=== PATIENT | male | born 1990 | race Caucasian/White ===

== ENCOUNTER 2016-07-10 19:40 | Emergency (ER) | payer OTHER ==
--- NOTE | 2016-07-10 20:47 | ED ---
Anxiety HPI - General Chief Complaint: Anxiety Stated Complaint: Anxiety Time Seen by Provider: 07/10/16 20:41 Source: patient, RN notes reviewed Mode of arrival: ambulatory Limitations: no limitations - History of Present Illness Initial Comments: 25-year-old male presents emergency Department with chief complaint anxiety. Patient states that he was supposed to have an appointment with his psychiatrist tomorrow morning for his Ativan but they canceled and moved his appointment to Friday. Patient states that he is out because his prescription was over one month ago. Patient denies any suicidal or homicidal thoughts. Patient denies any illicit drug use or alcohol use. Patient states his is very anxious states that he does not want to withdrawal from his medication. Patient offers no other complaints. Patient denies chest pain, shortness breath , fever, chills, nausea vomiting diarrhea or constipation. - Related Data Home Medications: Home Medications Medication Instructions Recorded Confirmed Ranitidine HCl [Zantac] 75 mg PO HS 11/10/15 06/03/16 Citalopram Hydrobromide [CeleXA] 10 mg PO DAILY 06/03/16 06/03/16 busPIRone HCl [Buspar] 5 mg PO BID 06/03/16 06/03/16 Previous Rx's Medication Instructions Recorded LORazepam [Ativan] 0.5 mg PO BID #10 tab 05/17/16 LORazepam [Ativan] 0.5 mg PO BID #7 tab 07/10/16 Allergies/Adverse Reactions: Allergies Allergy/AdvReac Type Severity Reaction Status Date / Time Penicillins Allergy Unknown Verified 07/10/16 19:52 Review of Systems ROS Statement: Those systems with pertinent positive or pertinent negative responses have been documented in the HPI. ROS Other: All systems not noted in ROS Statement are negative. Past Medical History Past Medical History: Asthma History of Any Multi-Drug Resistant Organisms: None Reported Past Surgical History: No Surgical Hx Reported Past Psychological History: ADD/ADHD, Anxiety Smoking Status: Current every day smoker Past Alcohol Use History: None Reported Past Drug Use History: None Reported General Exam Limitations: no limitations General appearance: alert, in no apparent distress Head exam: Present: atraumatic, normocephalic, normal inspection Eye exam: Present: normal appearance, PERRL, EOMI. Absent: scleral icterus, conjunctival injection, periorbital swelling ENT exam: Present: normal exam, normal oropharynx, mucous membranes moist, TM's normal bilaterally, normal external ear exam Neck exam: Present: normal inspection, full ROM. Absent: tenderness, meningismus, lymphadenopathy Respiratory exam: Present: normal lung sounds bilaterally. Absent: respiratory distress, wheezes, rales, rhonchi, stridor Cardiovascular Exam: Present: regular rate, normal rhythm, normal heart sounds. Absent: systolic murmur, diastolic murmur, rubs, gallop, clicks Course Vital Signs 07/10/16 19:50 Temperature 97.2 F L Pulse Rate 100 Respiratory 18 Rate Blood Pressure 147/81 O2 Sat by Pulse 98 Oximetry Medical Decision Making - Medical Decision Making 25-year-old male presented for anxiety. Patient was given a few tablets of of Ativan at this time so does not withdrawal. Patient will follow-up with psychiatrist on Friday. Disposition Clinical Impression: Acute anxiety Disposition: HOME SELF-CARE Condition: Stable Instructions: Generalized Anxiety Disorder (ED) Additional Instructions: Please return to the Emergency Department if symptoms worsen or any other concerns. Prescriptions: LORazepam [Ativan] 0.5 mg PO BID #7 tab Time of Disposition: 20:47
[2016-07-10 21:03] VITALS: BP 120/70; PULSE 84; RESP 16; TEMP 97.8
== END 2016-07-10 21:02 | disposition home or self-care (01) ==
LOC: EC 19:40
DX: F41.9 Anxiety disorder, unspecified (principal); Z79.899 Other long term (current) drug therapy; Z88.0 Allergy status to penicillin; F17.200 Nicotine dependence, unspecified, uncomplicated
CPT/HCPCS: 99283

== ENCOUNTER 2016-08-19 01:08 | Emergency (ER) | payer OTHER ==
[2016-08-19 01:26] VITALS: TEMP 98.2
[2016-08-19] MEDS ORDERED: LORazepam 1 MG TAB PO STA (04:42)
--- NOTE | 2016-08-19 04:45 | ED ---
Anxiety HPI - General Chief Complaint: Anxiety Stated Complaint: anxiety Time Seen by Provider: 08/19/16 04:34 Source: patient, RN notes reviewed, old records reviewed Mode of arrival: ambulatory - History of Present Illness Initial Comments: Patient is a 26 year old male with chief complaint of anxiety and running out of his clonazepam. Patient reports he takes .25 mg of ativan each night to help with sleep. He reports he uusally will cut a 1mg in fourths. He states that he has an appointment with Dr. Salas, his psychiatrist in approximately 2 weeks. He states that he is concerned of withdrawls. He denies any suicidal or homicidal thoughts. He states that he has been taking clonazepam for many years and ran out of it last night. - Related Data Home Medications: Home Medications Medication Instructions Recorded Confirmed Citalopram Hydrobromide [CeleXA] 10 mg PO DAILY 06/03/16 08/19/16 busPIRone HCl [Buspar] 5 mg PO BID 06/03/16 07/10/16 Previous Rx's Medication Instructions Recorded LORazepam [Ativan] 1 mg PO DAILY #4 tab 07/10/16 LORazepam [Ativan] 0.5 mg PO DAILY #10 tab 08/19/16 Allergies/Adverse Reactions: Allergies Allergy/AdvReac Type Severity Reaction Status Date / Time Penicillins Allergy Unknown Verified 07/10/16 20:54 Review of Systems ROS Statement: Those systems with pertinent positive or pertinent negative responses have been documented in the HPI. ROS Other: All systems not noted in ROS Statement are negative. Past Medical History Past Medical History: Asthma History of Any Multi-Drug Resistant Organisms: None Reported Past Surgical History: No Surgical Hx Reported Past Psychological History: ADD/ADHD, Anxiety Smoking Status: Current every day smoker Past Alcohol Use History: None Reported Past Drug Use History: None Reported General Exam Limitations: no limitations General appearance: alert, in no apparent distress Head exam: Present: atraumatic, normocephalic, normal inspection Eye exam: Present: normal appearance, PERRL, EOMI. Absent: scleral icterus, conjunctival injection, periorbital swelling ENT exam: Present: normal exam, mucous membranes moist Neck exam: Present: normal inspection. Absent: tenderness, meningismus, lymphadenopathy Respiratory exam: Present: normal lung sounds bilaterally. Absent: respiratory distress, wheezes, rales, rhonchi, stridor Cardiovascular Exam: Present: regular rate GI/Abdominal exam: Present: soft, normal bowel sounds. Absent: distended, tenderness, guarding, rebound, rigid Extremities exam: Present: normal inspection, full ROM, normal capillary refill. Absent: tenderness, pedal edema, joint swelling, calf tenderness Back exam: Present: normal inspection Neurological exam: Present: alert, oriented X3, CN II-XII intact Psychiatric exam: Present: normal affect, normal mood, anxious (patient reports that he has chronic anxiety, no acute anxiety attacks at this time. PAtient is resting comfortably in bed. ) Skin exam: Present: warm, dry, intact, normal color. Absent: rash Course Vital Signs 08/19/16 08/19/16 01:24 04:54 Temperature 98.2 F Pulse Rate 89 77 Respiratory 20 16 Rate Blood Pressure 130/90 132/78 O2 Sat by Pulse 98 96 Oximetry Medical Decision Making - Medical Decision Making Patient is a 26 year old male with chief complaint of anxiety and ran out of ativan. He was given 1mg ativan in EC, and he split it at that time. Patient given a few ativan until he can follow up with psychiatrist. Patient will follow up with Dr. Salas in 2 weeks. PAtient understands treatment plan and will comply. He has no suicidal or homicidal thoughts. and is resting comfortably at this time. Disposition Clinical Impression: Anxiety Disposition: HOME SELF-CARE Condition: Good Instructions: Generalized Anxiety Disorder (ED) Additional Instructions: Patient denies to follow-up with primary care provider. Also follow-up with psychiatrist. Return to emergency Department if any alarming signs or symptoms occur. Prescriptions: LORazepam [Ativan] 0.5 mg PO DAILY #10 tab Referrals: Aliya Matos MD [Primary Care Provider] - 1-2 days Time of Disposition: 04:44
[2016-08-19 04:54] VITALS: BP 132/78; PULSE 77; RESP 16
== END 2016-08-19 04:54 | disposition home or self-care (01) ==
LOC: EC 01:08
DX: F41.9 Anxiety disorder, unspecified (principal); F17.200 Nicotine dependence, unspecified, uncomplicated; Z79.899 Other long term (current) drug therapy; Z88.0 Allergy status to penicillin
CPT/HCPCS: 99283

== ENCOUNTER 2016-09-26 21:21 | Emergency (ER) | payer OTHER ==
[2016-09-26 21:35] VITALS: BP 120/72; PULSE 88; RESP 18; TEMP 98.4
[2016-09-26] MEDS ORDERED: LORazepam 1 MG TAB PO STA (21:55)
--- NOTE | 2016-09-26 21:55 | ED ---
General Adult HPI - General Chief complaint: Anxiety Stated complaint: anxiety Time Seen by Provider: 09/26/16 21:40 Source: patient, RN notes reviewed, old records reviewed Mode of arrival: ambulatory Limitations: no limitations - History of Present Illness Initial comments: This is a 26-year-old female here for evaluation of anxiety. Patient states having severe anxiety attack, anxiety medications. He denies homicidal or suicidal thoughts no drugs or alcohol. Patient has no chest pain or shortness of breath no bowel pain. Denies chance of - Related Data Home Medications Medication Instructions Recorded Confirmed busPIRone HCl [Buspar] 5 mg PO QAM 06/03/16 09/26/16 Citalopram Hydrobromide [CeleXA] 20 mg PO DAILY 09/04/16 09/26/16 Ibuprofen [Motrin] 800 mg PO DAILY PRN 09/04/16 09/26/16 Ranitidine HCl [Zantac] 150 mg PO BID 09/04/16 09/26/16 ALPRAZolam [Xanax] 1 mg PO QAM 09/26/16 09/26/16 Dextroamphetamine/Amphetamine 20 mg PO BID 09/26/16 09/26/16 [Adderall] Divalproex ER [Depakote ER] 250 mg PO BID 09/26/16 09/26/16 Previous Rx's Medication Instructions Recorded LORazepam [Ativan] 1 mg PO BID PRN #30 tab 09/26/16 Allergies Allergy/AdvReac Type Severity Reaction Status Date / Time Penicillins Allergy Unknown Verified 09/26/16 22:08 Review of Systems ROS Statement: Those systems with pertinent positive or pertinent negative responses have been documented in the HPI. ROS Other: All systems not noted in ROS Statement are negative. Past Medical History Past Medical History: Asthma, GERD/Reflux Additional Past Medical History / Comment(s): HX OF ASTHMA (NO PROBLEMS NOW). History of Any Multi-Drug Resistant Organisms: None Reported Past Surgical History: No Surgical Hx Reported Additional Past Anesthesia/Blood Transfusion Reaction / Comment(s): NEVER RECEIVED ANESTHESIA. Past Psychological History: Anxiety, Depression Smoking Status: Heavy tobacco smoker Past Alcohol Use History: None Reported Additional Past Alcohol Use History / Comment(s): SMOKES 2 PPD. SMOKING SINCE 16 YRS OLD. STATES NO ALCOHOL FOR 5 YEARS. Past Drug Use History: None Reported - Past Family History Mother Family Medical History: No Reported History General Exam Limitations: no limitations General appearance: alert, in no apparent distress Head exam: Present: atraumatic, normocephalic, normal inspection Eye exam: Present: normal appearance, PERRL, EOMI. Absent: scleral icterus, conjunctival injection, periorbital swelling ENT exam: Present: normal exam, mucous membranes moist Neck exam: Present: normal inspection. Absent: tenderness, meningismus, lymphadenopathy Respiratory exam: Present: normal lung sounds bilaterally. Absent: respiratory distress, wheezes, rales, rhonchi, stridor Cardiovascular Exam: Present: regular rate, normal rhythm, normal heart sounds. Absent: systolic murmur, diastolic murmur, rubs, gallop, clicks GI/Abdominal exam: Present: soft, normal bowel sounds. Absent: distended, tenderness, guarding, rebound, rigid Extremities exam: Present: normal inspection, full ROM, normal capillary refill. Absent: tenderness, pedal edema, joint swelling, calf tenderness Back exam: Present: normal inspection Neurological exam: Present: alert, oriented X3, CN II-XII intact Psychiatric exam: Present: normal affect, normal mood Skin exam: Present: warm, dry, intact, normal color. Absent: rash Course Vital Signs 09/26/16 21:33 Temperature 98.4 F Pulse Rate 88 Respiratory 18 Rate Blood Pressure 120/72 O2 Sat by Pulse 98 Oximetry Medical Decision Making - Medical Decision Making 26 now ER for anxiety attack, anxiety is resolved with medication. Patient will be discharged home Disposition Clinical Impression: Panic attack, Acute anxiety Disposition: HOME SELF-CARE Instructions: Generalized Anxiety Disorder (ED) Prescriptions: LORazepam [Ativan] 1 mg PO BID PRN #30 tab PRN Reason: Anxiety Referrals: Josesito Rivas MD [Primary Care Provider] - 1-2 days
== END 2016-09-26 22:10 | disposition home or self-care (01) ==
LOC: EC 21:21
DX: F41.0 Panic disorder [episodic paroxysmal anxiety] (principal); K21.9 Gastro-esophageal reflux disease without esophagitis; F32.9 Major depressive disorder, single episode, unspecified; F17.200 Nicotine dependence, unspecified, uncomplicated; Z79.899 Other long term (current) drug therapy
CPT/HCPCS: 99283

== ENCOUNTER 2016-10-10 16:07 | Emergency (ER) | payer OTHER ==
[2016-10-10 16:27] VITALS: BP 127/72; PULSE 83; RESP 18; TEMP 97.9
[2016-10-10] MEDS ORDERED: LORazepam 0.5 MG TAB PO STA (16:49)
--- NOTE | 2016-10-10 16:52 | ED ---
Anxiety HPI - General Chief Complaint: Anxiety Stated Complaint: anxiety Time Seen by Provider: 10/10/16 16:43 Source: patient, RN notes reviewed Mode of arrival: ambulatory Limitations: no limitations - History of Present Illness Initial Comments: 26-year-old male presents emergency from for anxiety anger issues. Patient is here with mother. Patient states that he does not have any of his living because his is a pill popper and use all of his medications. Patient is requesting something here because of his anxiety. Patient denies any suicidal or homicidal thoughts. Patient is under the care of his mother at this time. Patient denies any alcohol use. Patient offers no complaints. - Related Data Home Medications: Home Medications Medication Instructions Recorded Confirmed busPIRone HCl [Buspar] 5 mg PO QAM 06/03/16 10/10/16 Citalopram Hydrobromide [CeleXA] 20 mg PO DAILY 09/04/16 10/10/16 Ibuprofen [Motrin] 800 mg PO DAILY PRN 09/04/16 10/10/16 Ranitidine HCl [Zantac] 150 mg PO BID 09/04/16 10/10/16 ALPRAZolam [Xanax] 1 mg PO QAM 09/26/16 10/10/16 Dextroamphetamine/Amphetamine 20 mg PO BID 09/26/16 10/10/16 [Adderall] Divalproex ER [Depakote ER] 250 mg PO BID 09/26/16 10/10/16 Previous Rx's Medication Instructions Recorded LORazepam [Ativan] 1 mg PO BID PRN #30 tab 09/26/16 Allergies/Adverse Reactions: Allergies Allergy/AdvReac Type Severity Reaction Status Date / Time erythromycin base Allergy Unknown Verified 10/10/16 16:37 [From Pediazole] Childhood sulfisoxazole Allergy Unknown Verified 10/10/16 16:37 [From Pediazole] Childhood Review of Systems ROS Statement: Those systems with pertinent positive or pertinent negative responses have been documented in the HPI. ROS Other: All systems not noted in ROS Statement are negative. Past Medical History Past Medical History: Asthma, GERD/Reflux Additional Past Medical History / Comment(s): HX OF ASTHMA (NO PROBLEMS NOW). History of Any Multi-Drug Resistant Organisms: None Reported Past Surgical History: Adenoidectomy, Hernia Repair, Tonsillectomy Additional Past Surgical History / Comment(s): web foot repair Additional Past Anesthesia/Blood Transfusion Reaction / Comment(s): NEVER RECEIVED ANESTHESIA. Past Psychological History: Anxiety, Depression Smoking Status: Current every day smoker Past Alcohol Use History: None Reported Additional Past Alcohol Use History / Comment(s): SMOKES 2 PPD. SMOKING SINCE 16 YRS OLD. STATES NO ALCOHOL FOR 5 YEARS. Past Drug Use History: None Reported - Past Family History Mother Family Medical History: No Reported History General Exam Limitations: no limitations General appearance: alert, in no apparent distress Respiratory exam: Present: normal lung sounds bilaterally. Absent: respiratory distress, wheezes, rales, rhonchi, stridor Cardiovascular Exam: Present: regular rate, normal rhythm, normal heart sounds. Absent: systolic murmur, diastolic murmur, rubs, gallop, clicks Neurological exam: Present: alert, oriented X3, CN II-XII intact Skin exam: Present: warm, dry, intact, normal color. Absent: rash Course Vital Signs 10/10/16 16:23 Temperature 97.9 F Pulse Rate 83 Respiratory 18 Rate Blood Pressure 127/72 O2 Sat by Pulse 96 Oximetry Medical Decision Making - Medical Decision Making 18-year-old male presented for anxiety. Patient be given medication here in the emergency department no prescription. Patient be discharged follow-up with psychiatry. Disposition Clinical Impression: Panic disorder Disposition: HOME SELF-CARE Condition: Stable Instructions: Generalized Anxiety Disorder (ED) Additional Instructions: Please return to the Emergency Department if symptoms worsen or any other concerns. Time of Disposition: 16:52
== END 2016-10-10 17:06 | disposition home or self-care (01) ==
LOC: EC 16:07
DX: F41.0 Panic disorder [episodic paroxysmal anxiety] (principal); K21.9 Gastro-esophageal reflux disease without esophagitis; F32.9 Major depressive disorder, single episode, unspecified; F17.200 Nicotine dependence, unspecified, uncomplicated; Z79.899 Other long term (current) drug therapy; Z88.1 Allergy status to other antibiotic agents
CPT/HCPCS: 99283

== ENCOUNTER 2016-11-26 11:55 | Emergency (ER) | payer OTHER ==
[2016-11-26 12:07] VITALS: BP 113/57; PULSE 76; RESP 18; TEMP 97.4
[2016-11-26] MEDS ORDERED: ACETAMINOPHEN TAB 500 MG TAB PO STA (12:22)
--- NOTE | 2016-11-26 13:16 | ED ---
Back Pain [facility] - General Chief Complaint: Back Pain/Injury Stated Complaint: Back Pain Time Seen by Provider: 11/26/16 12:10 Source: patient Limitations: no limitations - History of Present Illness Initial Comments: Patient is a 26-year-old male presenting to the emergency department with chief complaint of lumbar back pain. Patient states symptoms started yesterday at work. 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 Patient states he is usually able to crack his back and the pain disappears but this time the pain has been persistent since yesterday. Patient denies recent illness, fevers, chills, nausea, vomiting, shortness of breath, chest pain, abdominal pain, numbness or tingling, fecal or urinary incontinence, or saddle anesthesia. Patient denies recent IV drug abuse, no recent steroids, no history of cancer. MD Complaint: back pain (Lumbar) Onset/Timin -: days(s) Similar Symptoms Previously: Yes Place: work Radiation: none Severity: moderate Severity scale (1-10): 5 Quality: other (Squeezing) Consistency: intermittent Improves With: immobilization Worsens With: movement Context: unknown Associated Symptoms: denies other symptoms Treatments Prior to Arrival: NSAIDS (Last night patient took some Motrin.) - Related Data Home Medications Medication Instructions Recorded Confirmed busPIRone HCl [Buspar] 5 mg PO QAM 06/03/16 11/26/16 Ibuprofen [Motrin] 800 mg PO DAILY PRN 09/04/16 11/26/16 RX: Citalopram Hydrobromide 20 mg PO DAILY 09/04/16 11/26/16 [CeleXA] Ranitidine HCl [Zantac] 150 mg PO BID 09/04/16 11/26/16 ALPRAZolam [Xanax] 1 mg PO QAM 09/26/16 11/26/16 Dextroamphetamine/Amphetamine 20 mg PO BID 09/26/16 11/26/16 [Adderall] Divalproex ER [Depakote ER] 250 mg PO BID 09/26/16 11/26/16 Allergies Allergy/AdvReac Type Severity Reaction Status Date / Time erythromycin base Allergy Unknown Verified 11/26/16 12:07 [From Pediazole] Childhood sulfisoxazole Allergy Unknown Verified 11/26/16 12:07 [From Pediazole] Childhood Review of Systems ROS Statement: Those systems with pertinent positive or pertinent negative responses have been documented in the HPI. ROS Other: All systems not noted in ROS Statement are negative. Past Medical History Past Medical History: Asthma, GERD/Reflux Additional Past Medical History / Comment(s): HX OF ASTHMA (NO PROBLEMS NOW). History of Any Multi-Drug Resistant Organisms: None Reported Past Surgical History: Adenoidectomy, Hernia Repair, Tonsillectomy Additional Past Surgical History / Comment(s): web foot repair Additional Past Anesthesia/Blood Transfusion Reaction / Comment(s): NEVER RECEIVED ANESTHESIA. Past Psychological History: Anxiety, Depression Smoking Status: Current every day smoker Past Alcohol Use History: None Reported Past Drug Use History: None Reported - Past Family History Mother Family Medical History: No Reported History General Exam - General Exam Comments Initial Comments: GENERAL: Pt awake and alert, well-appearing, well-nourished, and in no acute distress. HEAD: Atraumatic, normocephalic. EYES: Pupils equal, round, and reactive to light, extraocular movements intact, sclera anicteric, conjunctiva are normal. ENT: Oropharynx clear without exudates. Moist mucous membranes. Tongue smooth, pink, no lesions, protrudes in midline. NECK:Normal range of motion, supple without lymphadenopathy or JVD. No cervical tenderness. LUNGS: Breath sounds clear to auscultation bilaterally. No wheezes, rales, or rhonchi. HEART: Heart S1, S2, no S3 or S4. Regular rate and rhythm. No murmurs, rubs or gallops. ABDOMEN: Soft, nontender, nondistended, normoactive bowel sounds. No guarding, no rebound. No masses or organomegaly appreciated. BACK: Full range of motion of spine flexion and extension. Straight leg raise negative bilaterally. 5 out of 5 strength hips/knees/ankles in flexion and extension. Normal gait. Vertebral tenderness to lumbar region. No paraspinal tenderness. Cecy test positive for lumbosacral pain. No foot drop. EXTREMITIES: 2+ peripheral pulses. No edema. No calf tenderness. NEUROLOGICAL: Pt oriented x 3. No focal deficits. Strength and sensation grossly intact. PSYCH: Normal mood, normal affect. SKIN: Warm, dry, intact. Normal turgor. No rashes or lesions. Limitations: no limitations General appearance: alert, in no apparent distress Course Vital Signs 06/20/17 06/20/17 12:05 13:18 Temperature 97.4 F L 97.4 F L Pulse Rate 76 76 Respiratory 18 18 Rate Blood Pressure 113/57 113/57 O2 Sat by Pulse 97 97 Oximetry Medical Decision Making - Medical Decision Making Lumbar sprain. Patient instructed to continue Tylenol or Motrin for pain. Avoid bed rest. Follow-up with primary care physician as directed. Patient agrees to treatment plan. Discharge instructions and return parameters reviewed. - Radiology Data Radiology results: report reviewed Lumbar spine x-ray: Normal lumbosacral spine. Disposition Clinical Impression: Strain of lumbar region Disposition: HOME SELF-CARE Condition: Good Instructions: Acute Low Back Pain (ED) Additional Instructions: Continue Tylenol every 4-6 hours for pain or Motrin every 4-6 hours for pain. Avoid bed rest. Follow-up with primary care physician as directed. Please return to the emergency department if symptoms do not improve or get worse. Referrals: Josesito Rivas MD [Primary Care Provider] - 1-2 days Time of Disposition: 13:16
--- NOTE | 2016-11-26 15:29 | XR ---
EXAMINATION TYPE: XR lumbosacral spine min 4V DATE OF EXAM ORDERED: 11/26/2016 HISTORY: Pain. COMPARISON: None. FINDINGS: Vertebral body height and alignment are maintained. There is no spondylolysis or spondylol isthesis. This spaces are maintained. The facets are normal on the right. There are poorly visualized on the left. The pedicles are intact. IMPRESSION: NORMAL LUMBOSACRAL SPINE.
== END 2016-11-26 13:21 | disposition home or self-care (01) ==
LOC: EC 11:55
DX: S39.012A Strain of muscle, fascia and tendon of lower back, initial encounter (principal); K21.9 Gastro-esophageal reflux disease without esophagitis; F32.9 Major depressive disorder, single episode, unspecified; F41.9 Anxiety disorder, unspecified; F17.200 Nicotine dependence, unspecified, uncomplicated; Z79.899 Other long term (current) drug therapy; Z88.1 Allergy status to other antibiotic agents; Z88.2 Allergy status to sulfonamides; X58.XXXA Exposure to other specified factors, initial encounter; Y92.89 Other specified places as the place of occurrence of the external cause
CPT/HCPCS: 72110; 99283

== ENCOUNTER 2016-12-14 23:46 | Emergency (ER) | payer OTHER ==
[2016-12-14 23:54] VITALS: BP 131/90; PULSE 102; RESP 18; TEMP 97.8
[2016-12-15] MEDS ORDERED: PENICILLIN V POTASSIUM 250 MG TAB PO STA (00:50)
[2016-12-15] MEDS ORDERED: Acetaminophen-Codeine 300-30mg TAB PO STA (00:50)
--- NOTE | 2016-12-15 00:50 | ED ---
ENT HPI - General Chief complaint: Dental/Oral Stated complaint: Dental Pain Time Seen by Provider: 12/15/16 00:43 Source: patient, RN notes reviewed Mode of arrival: ambulatory Limitations: no limitations - History of Present Illness Initial comments: 26-year-old male presents emergency Department chief complaint right lower dental pain. Patient states started last few days. Patient is appointment with dentist on Friday. Patient denies any fevers or chills. Patient states she's had mild facial swelling. Patient states he has poor dentition the lower area. Patient states she's been taking ibuprofen with some relief. Patient offers no other complaints. - Related Data Home Medications Medication Instructions Recorded Confirmed busPIRone HCl [Buspar] 5 mg PO QAM 06/03/16 11/26/16 Citalopram Hydrobromide [CeleXA] 20 mg PO DAILY 09/04/16 11/26/16 Ibuprofen [Motrin] 800 mg PO DAILY PRN 09/04/16 11/26/16 Ranitidine HCl [Zantac] 150 mg PO BID 09/04/16 11/26/16 ALPRAZolam [Xanax] 1 mg PO QAM 09/26/16 11/26/16 Dextroamphetamine/Amphetamine 20 mg PO BID 09/26/16 11/26/16 [Adderall] Divalproex ER [Depakote ER] 250 mg PO BID 09/26/16 11/26/16 Previous Rx's Medication Instructions Recorded Acetaminophen-Codeine 300-30mg 1 tab PO Q4H PRN #10 tablet 12/15/16 [Tylenol #3] Penicillin V Potassium [Pen Vee K] 500 mg PO QID #40 tab 12/15/16 Allergies Allergy/AdvReac Type Severity Reaction Status Date / Time erythromycin base Allergy Unknown Verified 12/14/16 23:54 [From Pediazole] Childhood sulfisoxazole Allergy Unknown Verified 12/14/16 23:54 [From Pediazole] Childhood Review of Systems ROS Statement: Those systems with pertinent positive or pertinent negative responses have been documented in the HPI. ROS Other: All systems not noted in ROS Statement are negative. Past Medical History Past Medical History: Asthma, GERD/Reflux Additional Past Medical History / Comment(s): HX OF ASTHMA (NO PROBLEMS NOW). History of Any Multi-Drug Resistant Organisms: None Reported Past Surgical History: Adenoidectomy, Hernia Repair, Tonsillectomy Additional Past Surgical History / Comment(s): web foot repair Additional Past Anesthesia/Blood Transfusion Reaction / Comment(s): NEVER RECEIVED ANESTHESIA. Past Psychological History: Anxiety, Depression Smoking Status: Current every day smoker Past Alcohol Use History: None Reported Past Drug Use History: None Reported - Past Family History Mother Family Medical History: No Reported History General Exam Limitations: no limitations General appearance: alert, in no apparent distress Head exam: Present: atraumatic, normocephalic, normal inspection Eye exam: Present: normal appearance, PERRL, EOMI. Absent: scleral icterus, conjunctival injection, periorbital swelling ENT exam: Present: mucous membranes moist, TM's normal bilaterally. Absent: normal exam, normal oropharynx (Poor dentition, edentulous, right lower there are multiple missing teeth with no open abscess is mild erythema and swelling of the gumline) Neck exam: Present: normal inspection, full ROM. Absent: tenderness, meningismus, lymphadenopathy Respiratory exam: Present: normal lung sounds bilaterally. Absent: respiratory distress, wheezes, rales, rhonchi, stridor Cardiovascular Exam: Present: regular rate, normal rhythm, normal heart sounds. Absent: systolic murmur, diastolic murmur, rubs, gallop, clicks Course Vital Signs 12/14/16 23:52 Temperature 97.8 F Pulse Rate 102 H Respiratory 18 Rate Blood Pressure 131/90 O2 Sat by Pulse 99 Oximetry Medical Decision Making - Medical Decision Making 26-year-old male present emergency from for dental pain. Patient placed on antibiotics pain medication return parameters were discussed. Patient states his appointment on Friday. Return parameters were discussed. Disposition Clinical Impression: Fracture of tooth, Toothache Disposition: HOME SELF-CARE Condition: Stable Instructions: Toothache (ED), Dental Caries (ED) Additional Instructions: Please return to the Emergency Department if symptoms worsen or any other concerns. Prescriptions: Acetaminophen-Codeine 300-30mg [Tylenol #3] 1 tab PO Q4H PRN #10 tablet PRN Reason: pain Penicillin V Potassium [Pen Vee K] 500 mg PO QID #40 tab Referrals: Josesito Rivas MD [Primary Care Provider] - 1-2 days Time of Disposition: 00:49
[2016-12-15] MEDS ORDERED: CLINDAMYCIN 150 MG CAP PO STA (01:19)
== END 2016-12-15 01:35 | disposition home or self-care (01) ==
LOC: EC 23:46
DX: K03.81 Cracked tooth (principal); K00.0 Anodontia; K21.9 Gastro-esophageal reflux disease without esophagitis; F32.9 Major depressive disorder, single episode, unspecified; F41.9 Anxiety disorder, unspecified; F17.200 Nicotine dependence, unspecified, uncomplicated; Z79.899 Other long term (current) drug therapy; Z88.1 Allergy status to other antibiotic agents
CPT/HCPCS: 99282

== ENCOUNTER 2017-02-04 15:43 | Inpatient (IN) | payer MEDICAID, OTHER ==
--- NOTE | 2017-02-04 16:32 | ED ---
General Adult HPI - General Chief complaint: Psychiatric Symptoms Stated complaint: Mental Health Time Seen by Provider: 02/04/17 15:52 Source: patient, police, RN notes reviewed Mode of arrival: ambulatory Limitations: no limitations - History of Present Illness Initial comments: 26 yo male presents to the ER with cc of suicidal ideation. Patient states he was talking to his mother today about wanting to hurt himself. He did not have a plan. He states he's been taking his medications. He has been diagnosed with depression and anxiety to see a psychiatrist. He states that he was just talking to his mother and then he states that this whole thing. Then. He was brought in by the police with a petition. Patient states this time he does not have a plan to hurt himself. He denies any homicidal ideation. Patient denies any recent fever, chills, shortness of breath, chest pain, back pain, abdominal pain, nausea vomiting, numbness or tingling, dysuria or hematuria, constipation or diarrhea, headaches or visual changes, or any other current symptoms. - Related Data Home Medications Medication Instructions Recorded Confirmed Ranitidine HCl [Zantac] 150 mg PO BID 09/04/16 02/04/17 ALPRAZolam [Xanax] 1 mg PO TID PRN 09/26/16 02/04/17 Dextroamphetamine/Amphetamine 20 mg PO TID 09/26/16 02/04/17 [Adderall] Citalopram Hydrobromide [CeleXA] 40 mg PO DAILY 02/04/17 02/04/17 OXcarbazepine [Trileptal] 600 mg PO BID 02/04/17 02/04/17 busPIRone HCl [Buspar] 10 mg PO DAILY 02/04/17 02/04/17 Allergies Allergy/AdvReac Type Severity Reaction Status Date / Time erythromycin base Allergy Unknown Verified 02/04/17 16:39 [From Pediazole] Childhood sulfisoxazole Allergy Unknown Verified 02/04/17 16:39 [From Pediazole] Childhood Review of Systems ROS Statement: Those systems with pertinent positive or pertinent negative responses have been documented in the HPI. ROS Other: All systems not noted in ROS Statement are negative. Past Medical History Past Medical History: Asthma, GERD/Reflux Additional Past Medical History / Comment(s): HX OF ASTHMA (NO PROBLEMS NOW). History of Any Multi-Drug Resistant Organisms: None Reported Past Surgical History: Adenoidectomy, Hernia Repair, Tonsillectomy Additional Past Surgical History / Comment(s): web foot repair Additional Past Anesthesia/Blood Transfusion Reaction / Comment(s): NEVER RECEIVED ANESTHESIA. Past Psychological History: Anxiety, Depression Smoking Status: Current every day smoker Past Alcohol Use History: None Reported Past Drug Use History: None Reported - Past Family History Mother Family Medical History: No Reported History General Exam Limitations: no limitations General appearance: alert, in no apparent distress ENT exam: Present: normal exam, mucous membranes moist Neck exam: Present: normal inspection. Absent: tenderness, meningismus, lymphadenopathy Respiratory exam: Present: normal lung sounds bilaterally. Absent: respiratory distress, wheezes, rales, rhonchi, stridor Cardiovascular Exam: Present: regular rate, normal rhythm, normal heart sounds. Absent: systolic murmur, diastolic murmur, rubs, gallop, clicks Neurological exam: Present: alert, oriented X3 Psychiatric exam: Present: depressed, suicidal ideation. Absent: homicidal ideation Skin exam: Present: warm, dry, intact, normal color. Absent: rash Course Vital Signs 02/04/17 15:57 Temperature 98.6 F Pulse Rate 74 Respiratory 18 Rate Blood Pressure 115/67 O2 Sat by Pulse 98 Oximetry Medical Decision Making - Medical Decision Making 26-year-old male presents emergency Department chief complaint of suicidal ideation. At this time the patient does not appear to be suffering from any acute medical emergency. This time the patient be evaluated by psychiatry at this time the patient will be admitted. Discussed with the patient who is in agreement with the plan.. - Lab Data Lab Results 02/04/17 Range/Units 16:23 Urine Opiates Screen Not Detected (NotDetected) Ur Oxycodone Screen Not Detected (NotDetected) Urine Methadone Screen Not Detected (NotDetected) Ur Propoxyphene Screen Not Detected (NotDetected) Ur Barbiturates Screen Not Detected (NotDetected) U Tricyclic Antidepress Not Detected (NotDetected) Ur Phencyclidine Scrn Not Detected (NotDetected) Ur Amphetamines Screen Not Detected (NotDetected) U Methamphetamines Scrn Not Detected (NotDetected) U Benzodiazepines Scrn Not Detected (NotDetected) Urine Cocaine Screen Not Detected (NotDetected) U Marijuana (THC) Screen Not Detected (NotDetected) Disposition Clinical Impression: Suicidal ideation Disposition: TRANSFER TO PSYCH HOSP/UNIT Referrals: None,Stated [Primary Care Provider] - 1-2 days Time of Disposition: 19:06
[2017-02-04] MEDS ORDERED: LORazepam 1 MG TAB PO PRN (20:35)
[2017-02-04] MEDS ORDERED: ACETAMINOPHEN TAB 325 MG TAB PO PRN (20:35)
[2017-02-04] MEDS ORDERED: MAG HYDROX/AL HYDROX/SIMETH 30 ML CUP PO PRN (20:35)
[2017-02-04] MEDS ORDERED: ZIPRASIDONE 20 MG VIAL IM PRN (20:35)
[2017-02-04] MEDS ORDERED: MAGNESIUM HYDROXIDE 2,400 MG/10 ML CUP PO PRN (20:35)
[2017-02-04] MEDS ORDERED: FAMOTIDINE 20 MG TAB PO SCH (21:00)
--- NOTE | 2017-02-04 21:21 | P.MDCNMH ---
History of Present Illness H&P Date: 02/04/17 Chief Complaint: Depression and suicidal ideation This is a 26-year-old male with past medical history of depression who was admitted to medical health unit due to worsening depression and suicidal ideation. Patient currently refuses to provide much of the history can be examined. Most of the history obtained through chart. Per chart patient with history of depression he is on Celexa. Recently his depression symptoms been worsening acutely having some swelling side the radiation for which he can't emergency department that he was admitted for mental health unit for further treatment. Patient currently only wants to talk to psychiatrist he he states that his psychiatrist and [address]. He denies any past medical history of any medical problems. Denies any Vision changes shortness of breath chest pain changes in the bowel movements. When asked if he was taking medications he he says whatever was on the list that he provided. Review of Systems All systems: negative (Depression) Past Medical History Past Medical History: Asthma (Claims that he does not taking any inhalers and does not have any symptoms consistent with asthma), GERD/Reflux Additional Past Medical History / Comment(s): HX OF ASTHMA (NO PROBLEMS NOW). History of Any Multi-Drug Resistant Organisms: None Reported Past Surgical History: Adenoidectomy, Hernia Repair, Tonsillectomy Additional Past Surgical History / Comment(s): web foot repair Additional Past Anesthesia/Blood Transfusion Reaction / Comment(s): NEVER RECEIVED ANESTHESIA. Past Psychological History: Anxiety, Depression Smoking Status: Current every day smoker Past Alcohol Use History: None Reported Past Drug Use History: None Reported - Past Family History Mother Family Medical History: No Reported History Medications and Allergies Home Medications Medication Instructions Recorded Confirmed Type Ranitidine HCl [Zantac] 150 mg PO BID 09/04/16 02/04/17 History ALPRAZolam [Xanax] 1 mg PO TID PRN 09/26/16 02/04/17 History Dextroamphetamine/Amphetamine 20 mg PO TID 09/26/16 02/04/17 History [Adderall] Citalopram Hydrobromide [CeleXA] 40 mg PO DAILY 02/04/17 02/04/17 History OXcarbazepine [Trileptal] 600 mg PO BID 02/04/17 02/04/17 History busPIRone HCl [Buspar] 10 mg PO DAILY 02/04/17 02/04/17 History Allergies Allergy/AdvReac Type Severity Reaction Status Date / Time erythromycin base Allergy Unknown Verified 02/04/17 16:39 [From Pediazole] Childhood sulfisoxazole Allergy Unknown Verified 02/04/17 16:39 [From Pediazole] Childhood Physical Exam Vitals: Vital Signs Temp Pulse Resp BP Pulse Ox 02/04/17 20:10 97.5 F L 82 16 127/62 97 02/04/17 15:57 98.6 F 74 18 115/67 98 Intake and Output 02/04/17 02/04/17 02/04/17 06:59 14:59 22:59 Other: Weight 68.492 kg Patient Weight 02/05/17 06:59 Weight 68.492 kg Patient refused to be examined Cranial Nerve Examination - Cranial Nerves Cranial Nerve II- Optic: Intact (Refused examination) Cranial Nerve III- Oculomotor: Intact Cranial Nerve IV- Trochlear: Intact Cranial Nerve V- Trigeminal: Intact Cranial Nerve - Abducens: Intact Cranial Nerve VII- Facial: Intact Cranial Nerve VIII- Auditory: Intact Cranial Nerve IX- Glossopharyngeal: Intact Cranial Nerve X- Vagus: Intact Cranial Nerve XI- Accessory: Intact Cranial Nerve XII- Hypoglossal: Intact Assessment and Plan (1) Depression Narrative/Plan: Admitted to mental health unit D home medications Followed by psychiatry Status: Acute (2) Suicidal ideation Narrative/Plan: Mental health unit Suicidal precautions Status: Acute (3) Acid reflux Narrative/Plan: Antacids when necessary Status: Chronic
[2017-02-04] MEDS: NICOTINE 14MG/24HR PATCH TRANSDERM SCH (22:15)
[2017-02-04] MEDS: OXcarbazepine 300 MG TAB PO SCH (22:15)
[2017-02-04] MEDS ORDERED: MD COMMUNICATION TO PHARMACY 1 EACH MISC PO SCH (23:30)
[2017-02-05] MEDS: ZANTAC 150 MG PO SCH ×3 (01:18→22:03)
[2017-02-05] MEDS: OXcarbazepine 300 MG TAB PO SCH ×3 (09:30→23:54)
[2017-02-05] MEDS: CITALOPRAM HYDROBROMIDE 20 MG TAB PO SCH (09:30)
[2017-02-05] MEDS: NICOTINE 14MG/24HR PATCH TRANSDERM SCH (09:33)
[2017-02-05 09:34] LABS: Basophils % (A) 1 %; CH 31.4; CHCM 34.9; Eosinophils # (A) 0.2 k/uL (0-0.7); Eosinophils % (A) 3 %; HCT 50.3 % (39.0-53.0); HDW 2.58; HGB 16.5 gm/dL (13.0-17.5); Luc # (Auto) 0.22; Luc % (Auto) 3; Lymphocytes # (A) 2.4 k/uL (1.0-4.8); Lymphocytes % (A) 34 %; MCH 29.6 pg (25.0-35.0); MCHC 32.8 g/dL (31.0-37.0); MCV 90.4 fL (80.0-100.0); Mean Platelet Volume 7.5; Monocytes # (A) 0.5 k/uL (0-1.0); Monocytes % (A) 8 %; Neutrophils # (A) 3.6 k/uL (1.3-7.7); Neutrophils % (A) 52 %; RBC 5.57 m/uL (4.30-5.90); RDW 15.2 % (11.5-15.5); WBC 6.9 k/uL (3.8-10.6); WBC (Perox) 6.52
[2017-02-05 09:59] LABS: ALT 52 U/L (21-72); AST 21 U/L (17-59); Alkaline Phosphatase 83 U/L (38-126); Anion Gap 10 mmol/L; Blood Urea Nitrogen 17 mg/dL (9-20); Calcium 9.3 mg/dL (8.4-10.2); Carbon Dioxide 26 mmol/L (22-30); Chloride 103 mmol/L (98-107); Glucose 138 mg/dL (74-99); Non-African American GFR(MDRD) >60 (>60 ml/min/1.73 sqM); Potassium 4.3 mmol/L (3.5-5.1); Sodium 139 mmol/L (137-145); Total Bilirubin 0.8 mg/dL (0.2-1.3); Total Protein 7.1 g/dL (6.3-8.2)
[2017-02-06 06:40] VITALS: BP 107/65; PULSE 48; RESP 16; TEMP 97.8
[2017-02-06] MEDS: OXcarbazepine 300 MG TAB PO SCH (08:43)
[2017-02-06] MEDS: ZANTAC 150 MG PO SCH (08:43)
[2017-02-06] MEDS: CITALOPRAM HYDROBROMIDE 20 MG TAB PO SCH (08:43)
[2017-02-06] MEDS: NICOTINE 14MG/24HR PATCH TRANSDERM SCH (09:50)
--- NOTE | 2017-02-06 18:14 | HP ---
HISTORY AND PHYSICAL DATE OF SERVICE: 02/05/2017 IDENTIFYING DATA: The patient is a 26-year-old male. He resides with his father, stepmother and son. He is but . CHIEF COMPLAINT: The patient was depressed. He had suicide thoughts. He had told his mother that he had thoughts of wanting to hurt himself though he did not have a plan. He felt stressed about life issues and angry about some business issues he was involved in. HISTORY OF PRESENT ILLNESS: The patient did not provide a very clear history of his situation. He says he is followed by Dr. Salas for medications and sees a therapist, Manasa, for counseling. He says he has been going to [facility] for the last 3-4 yeas. He says there has been some stress issues with his son who also is seen by his counselor. He has had long- term problems with anxiety and depression. He acknowledges that he made a threat with a gun though he said that he did not have a gun and had no intention of hurting anyone. He reports that in general he has been doing fairly well in terms of current mental health issues. He said he got quite aggravated over the situation of selling the car. He says that prior to coming into the hospital he was sleeping fairly well at night. He has a difficult situation with his . Apparently they are . His is on parole due to drug issues. Patient also stated that he has an appointment to see Dr. Salas on Friday. He says he has been on a combination of Trileptal and Celexa as primary psychotropic medications. He also notes that he is prescribed BuSpar 10 mg a day, Adderall 20 mg 3 times a day and Xanax 1 mg 3 times a day as needed. He was vague about how consistent he has been in taking these medications. He suggested that he feels the medications have been helpful to him though he was not able to give specifics. He is admitted for further evaluation. SUBSTANCE USE HISTORY: Negative by the patient's report. PAST MEDICAL HISTORY, REVIEW OF SYSTEMS AND PHYSICAL EXAM: As per medical consultation. FAMILY AND SOCIAL HISTORY: The only information the patient provided is that he lives with his father and stepmother. He is though his lives on the other side of the [facility] and is in some kind of legal situation on parole for drug issues. He notes that the mother of his son also has addiction issues. He had been working thought currently is unemployed. He says he is a high school graduate. MENTAL STATUS EXAM: Patient was casually dressed and cooperative. Eye contact was fair. Psychomotor activity somewhat restless. His speech is clear. He answered questions with brief responses. His thoughts were coherent and goal directed. His affect was anxious, his mood reserved. It was difficult to say how distressed he was. There was no indication of thought disorder. On cognitive exam he was oriented x3 and alert. Recent and remote memory was intact. Attention and concentration fair. He could spell world forwards and backwards. He remembered 3 out of 3 objects at 4 minutes. Fund of knowledge was at an intellectual level average. ASSESSMENT: This 26-year-old male is diagnosed with major depression. He has had long-term struggles with mood. He was vague about the particulars so it is difficult to be clear about all of the issues that may be presenting at this time. His medication regimen is somewhat questionable given that he is prescribed both a benzodiazepine and Adderall that would basically contradict one another. Also, he is on a very low dose of BuSpar in spite of having fairly serious psychiatric issues. Current psychosocial issues need further clarification. Strengths include that he has maintained regular follow up for mental health issues. Weaknesses include questionable insight about his situation. DIAGNOSIS: Major depression, chronic and recurrent with acute exacerbation RECOMMENDATIONS: Patient will be admitted for comprehensive medical psychiatric and psychosocial evaluation. We will make efforts to engage the patient in individual group therapeutic activities. I will continue the patient on Trileptal 600 mg twice a day and Celexa 40 mg a day. At this point, I will not continue Xanax, Adderall or BuSpar. We will make efforts to gather further information including from the patient's mother and coordinate with his therapist and Dr. Salas as well. We will focus on stabilization and discharge planning. MMODL / IJN: [id number] /
--- NOTE | 2017-02-08 16:10 | DS ---
DATE OF SERVICE: 02/06/2017 DISCHARGE SUMMARY DATE OF ADMISSION: 02/04/2017. DATE OF DISCHARGE: 02/06/2017. ADMISSION AND DISCHARGE DIAGNOSES: Major depression, chronic and recurrent with acute exacerbation. HISTORY OF PRESENT ILLNESS: The patient presented with depression. He had suicide thoughts. He had told his mother that he had thoughts of wanting to hurt himself though he did not give a plan. He felt stressed about life issues and angry about some business issues he was involved in. He is followed through the [facility] and sees Dr. Salas for medications and [facility] for counseling. He indicates that he has been keeping his appointments regularly. He says his son also is seen by [facility] for therapy. He apparently had made a threat with a gun though he does not have a gun and stated he had no intentions of hurting someone. He said a main aggravation he had was over a situation of selling a car. It is noted that he has a complicated family situation. He says that he is though his is on parole due to drug issues and lives on the other side of the [facility]. He noted that currently he was prescribed BuSpar 10 mg a day, Adderall 20 mg 3 times a day, Xanax 1 mg 3 times a day as needed, Trileptal 600 mg twice a day and Celexa 40 mg a day. He was admitted for further evaluation. SUBSTANCE USE HISTORY: Uncertain. MEDICAL HISTORY, REVIEW OF SYSTEMS AND PHYSICAL EXAMINATION: As per Dr. Umanzor. MENTAL STATUS EXAM: The patient had fair eye contact. Psychomotor activity somewhat restless. Speech was clear. He gave brief responses. His thoughts were coherent. His affect was anxious. Mood reserved. There was no indication of thought disorder. Cognitive exam was clear. LAB STUDIES: CBC and comprehensive metabolic profile were unremarkable save for an elevated glucose of 138, TSH 1.1. Oxcarbazepine level 8.1. Urine drug screen negative. COURSE OF HOSPITALIZATION: The patient was admitted for comprehensive medical, psychiatric and psychosocial evaluation. We engaged the patient in individual and group therapeutic activities. On admission I had an extensive discussion with the patient regarding medication issues. I have continued him on Celexa 40 mg a day. The patient also indicated that he felt Trileptal was helpful for his bipolar disorder and was continued the same. I discontinued Adderall, Xanax and BuSpar as either these were not well indicated for his condition or a subtherapeutic. Patient did fairly well. On the day after admission he said his mood was much improved. He felt that he had some better insight into some of his issues he felt that he could manage some of the stress without the problems he had run into before. He emphasized that he has a job interview and a doctor's appointment both on February 07 and he was very eager to make those appointments. He felt that those would be helpful for him as far as addressing a lot of concerns and issues. We had a contact with the patient's mother who felt that he was stable for discharge. She has fairly close contact with him and felt that he would not pose a risk of danger to self or others. She also confirmed that he had the job interview on Friday and the appointment with Dr. Salas on Friday. CONDITION AT DISCHARGE: Patient is stable. Mood was improved. He tolerated his medications well. He voices no thoughts or impulses towards harm to self or others. RECOMMENDATIONS AND FOLLOW UP: Patient is discharged to home. Discharge medication: Celexa 40 mg a day, Trileptal 600 mg twice a day, Zantac 150 mg twice a day. Medications discontinued included Adderall, Xanax and BuSpar. He has a followup appointment with Dr. Salas 02/07 at 8:30 am. MMTRACYL / ERNESTON: [id number] / AMALIA
== END 2017-02-06 15:10 | disposition home or self-care (01) | DRG 885 ==
LOC: EC 15:43 → 3MHU 19:48
PROVIDERS: ADMIT Psychiatry & Neurology Psychiatry; ATTEND Psychiatry & Neurology Psychiatry
DX: F33.2 Major depressive disorder, recurrent severe without psychotic features (principal); R45.851 Suicidal ideations; F41.9 Anxiety disorder, unspecified; F17.200 Nicotine dependence, unspecified, uncomplicated; K21.9 Gastro-esophageal reflux disease without esophagitis; Z79.899 Other long term (current) drug therapy; Z88.1 Allergy status to other antibiotic agents; Z88.2 Allergy status to sulfonamides
CPT/HCPCS: 80053; 80183; 80306; 82075; 84443; 85025; 99285

== ENCOUNTER 2017-02-06 18:48 | Emergency (ER) | payer OTHER ==
[2017-02-06] MEDS ORDERED: LORazepam 1 MG TAB PO STA (19:18)
--- NOTE | 2017-02-06 19:19 | ED ---
General Adult HPI - General Chief complaint: Anxiety Stated complaint: Anxiety Time Seen by Provider: 02/06/17 19:09 Source: patient Mode of arrival: ambulatory Limitations: no limitations - History of Present Illness Initial comments: 26-year-old male presents emergency Department chief complaint of increased anxiety. Patient was discharged from [address] earlier today. He spent total to be there due to severe depression. Patient reports that he is supposed to see his psychiatrist tomorrow for further evaluation. Denies any suicidal thoughts. He reports that his mind is racing he came to get some medication to help calm down his anxiety. Patient states that he ran out of his Ativan. Patient states that he is looking to get a dose of medication to relax tonight and order sheet if he can see his psychiatrist tomorrow.Patient denies any recent fever, chills, shortness of breath, chest pain, back pain, abdominal pain, nausea vomiting, numbness or tingling, dysuria or hematuria, constipation or diarrhea, headaches or visual changes, or any other current symptoms - Related Data Home Medications Medication Instructions Recorded Confirmed Ranitidine HCl [Zantac] 150 mg PO BID 09/04/16 02/06/17 Citalopram Hydrobromide [CeleXA] 40 mg PO DAILY 02/04/17 02/06/17 OXcarbazepine [Trileptal] 600 mg PO BID 02/04/17 02/06/17 Previous Rx's Medication Instructions Recorded Nicotine 14Mg/24Hr Patch [Habitrol] 1 patch TRANSDERM DAILY patch 02/06/17 Allergies Allergy/AdvReac Type Severity Reaction Status Date / Time erythromycin base Allergy Unknown Verified 02/06/17 19:08 [From Pediazole] Childhood sulfisoxazole Allergy Unknown Verified 02/06/17 19:08 [From Pediazole] Childhood Review of Systems ROS Statement: Those systems with pertinent positive or pertinent negative responses have been documented in the HPI. ROS Other: All systems not noted in ROS Statement are negative. Past Medical History Past Medical History: Asthma, GERD/Reflux Additional Past Medical History / Comment(s): HX OF ASTHMA (NO PROBLEMS NOW). History of Any Multi-Drug Resistant Organisms: None Reported Past Surgical History: Adenoidectomy, Hernia Repair, Tonsillectomy Additional Past Surgical History / Comment(s): web foot repair Additional Past Anesthesia/Blood Transfusion Reaction / Comment(s): NEVER RECEIVED ANESTHESIA. Past Psychological History: Anxiety, Depression Smoking Status: Current every day smoker Past Alcohol Use History: None Reported Past Drug Use History: None Reported - Past Family History Mother Family Medical History: No Reported History General Exam - General Exam Comments Initial Comments: 26-year-old male. No acute distress. General: Well appearing, well nourished, in no distress. Oriented x 3, normal mood and affect . Ambulating without difficulty. Skin: Good turgor, no rash, unusual bruising or prominent lesions Hair: Normal texture and distribution. HEENT: Head: Normocephalic, atraumatic, no visible or palpable masses, depressions, or scaring. Mouth: Mucous membranes moist, no mucosal lesions. Pharynx: Mucosa non-inflamed, no tonsillar hypertrophy or exudate Neck: Supple, without lesions, bruits, or adenopathy, thyroid non-enlarged and non-tender Heart:regular rate and rhythm, no murmur or gallop Lungs: Clear to auscultation and percussion Abdomen: Bowel sounds normal, no tenderness, organomegaly, masses, or hernia Extremities: No amputations or deformities, cyanosis, edema or varicosities, peripheral pulses intact Musculoskeletal: Normal gait and station. Psychiatric: Oriented X3, intact recent and remote memory, recent appears to be somewhat anxious. Patient is moving his leg rapidly as if he is nervous. Patient denies any suicidal or homicidal ideation.. Limitations: no limitations Course Vital Signs 02/06/17 02/06/17 19:06 19:31 Temperature 97.9 F 97.6 F Pulse Rate 75 76 Respiratory 16 15 Rate Blood Pressure 116/79 123/73 O2 Sat by Pulse 99 99 Oximetry Medical Decision Making - Medical Decision Making 18-year-old male chief complaint increased anxiety. Patient was discharged from 3 was earlier today. Denies any suicidal or homicidal thoughts. Patient has an appointment with a psychiatrist. Patient reports he needs his medications in order for him to sleep to be able to be well rested tomorrow. She'll be given 1 mg of Ativan in the emergency department. Discussing will not write him for further medication until he sees a psychiatrist tomorrow. Patient understood history plan will comply. Return parameters were discussed. Disposition Clinical Impression: Anxiety Disposition: HOME SELF-CARE Condition: Good Instructions: Generalized Anxiety Disorder (ED) Additional Instructions: Patient is follow-up with your psychiatrist tomorrow. Return if there is any worsening signs or symptoms. Referrals: None,Stated [Primary Care Provider] - 1-2 days Time of Disposition: 19:19
[2017-02-06 19:33] VITALS: BP 123/73; PULSE 76; RESP 15; TEMP 97.6
== END 2017-02-06 19:41 | disposition home or self-care (01) ==
LOC: EC 18:48
DX: F41.9 Anxiety disorder, unspecified (principal); F32.9 Major depressive disorder, single episode, unspecified; K21.9 Gastro-esophageal reflux disease without esophagitis; F17.200 Nicotine dependence, unspecified, uncomplicated; Z79.899 Other long term (current) drug therapy; Z88.1 Allergy status to other antibiotic agents; Z88.8 Allergy status to other drugs, medicaments and biological substances
CPT/HCPCS: 99283

== ENCOUNTER 2017-03-20 18:10 | Emergency (ER) | payer OTHER ==
--- NOTE | 2017-03-20 18:29 | ED ---
Psych HPI - General Chief Complaint: Psychiatric Symptoms Stated Complaint: Petitioned Time Seen by Provider: 03/20/17 18:24 Source: patient, police, RN notes reviewed Mode of arrival: ambulatory Limitations: no limitations - History of Present Illness Initial Comments: 18-year-old male presents emergency Department with police for psychiatric evaluation. Patient is petition by mother secondary to making threats to her via texts. Patient stated that he wanted to hang himself and this would be the last time that she would see him. Patient did not verbalize that he was suicidal to the police. Patient states that he is not suicidal to me. Patient states he takes Adderall and Xanax recent alcohol or drug abuse. Patient denies any physical complaints at this time. Denies any homicidal thoughts. - Related Data Home Medications Medication Instructions Recorded Confirmed Ranitidine HCl [Zantac] 150 mg PO BID 09/04/16 03/20/17 Citalopram Hydrobromide [CeleXA] 40 mg PO DAILY 02/04/17 03/20/17 OXcarbazepine [Trileptal] 600 mg PO BID 02/04/17 03/20/17 ALPRAZolam [Xanax] 1 mg PO TID PRN 03/20/17 03/20/17 Dextroamphetamine/Amphetamine 20 mg PO TID 03/20/17 03/20/17 [Adderall] busPIRone HCl [Buspar] 10 mg PO DAILY 03/20/17 03/20/17 Allergies Allergy/AdvReac Type Severity Reaction Status Date / Time erythromycin base Allergy Unknown Verified 03/20/17 19:32 [From Pediazole] Childhood sulfisoxazole Allergy Unknown Verified 03/20/17 19:32 [From Pediazole] Childhood Review of Systems ROS Statement: Those systems with pertinent positive or pertinent negative responses have been documented in the HPI. ROS Other: All systems not noted in ROS Statement are negative. Past Medical History Past Medical History: Asthma, GERD/Reflux Additional Past Medical History / Comment(s): HX OF ASTHMA (NO PROBLEMS NOW). History of Any Multi-Drug Resistant Organisms: None Reported Past Surgical History: Adenoidectomy, Hernia Repair, Tonsillectomy Additional Past Surgical History / Comment(s): web foot repair Additional Past Anesthesia/Blood Transfusion Reaction / Comment(s): NEVER RECEIVED ANESTHESIA. Past Psychological History: Anxiety, Depression Smoking Status: Current every day smoker Past Alcohol Use History: None Reported Past Drug Use History: None Reported - Past Family History Mother Family Medical History: No Reported History General Exam Limitations: no limitations General appearance: alert, in no apparent distress Head exam: Present: atraumatic, normocephalic, normal inspection Eye exam: Present: normal appearance, PERRL, EOMI. Absent: scleral icterus, conjunctival injection, periorbital swelling ENT exam: Present: normal exam, normal oropharynx, mucous membranes moist, TM's normal bilaterally, normal external ear exam Neck exam: Present: normal inspection, full ROM. Absent: tenderness, meningismus, lymphadenopathy Respiratory exam: Present: normal lung sounds bilaterally. Absent: respiratory distress, wheezes, rales, rhonchi, stridor Cardiovascular Exam: Present: regular rate, normal rhythm, normal heart sounds. Absent: systolic murmur, diastolic murmur, rubs, gallop, clicks GI/Abdominal exam: Present: soft, normal bowel sounds. Absent: distended, tenderness, guarding, rebound, rigid Neurological exam: Present: alert, oriented X3, CN II-XII intact Psychiatric exam: Present: flat affect Skin exam: Present: warm, dry, intact, normal color. Absent: rash Course Vital Signs 03/20/17 18:13 Temperature 98.9 F Pulse Rate 62 Respiratory 16 Rate Blood Pressure 141/86 O2 Sat by Pulse 100 Oximetry Medical Decision Making - Medical Decision Making Patient was evaluated by psychiatric services. Case is discussed with psychiatrist. Patient does not need inpatient therapy. Patient would. The crisis who assumes responsibility for the patient patient made some threats with no active plan and denies being suicidal here. Disposition Clinical Impression: Depression Disposition: HOME SELF-CARE Condition: Stable Instructions: Depression (ED) Additional Instructions: Please return to the Emergency Department if symptoms worsen or any other concerns. Referrals: Zaheer Pastrana MD [Primary Care Provider] - 1-2 days Time of Disposition: 19:45
[2017-03-20 21:06] VITALS: BP 114/67; PULSE 56; RESP 18; TEMP 97.2
== END 2017-03-20 21:06 | disposition home or self-care (01) ==
LOC: EC 18:10
DX: F32.9 Major depressive disorder, single episode, unspecified (principal); K21.9 Gastro-esophageal reflux disease without esophagitis; F41.9 Anxiety disorder, unspecified; F17.200 Nicotine dependence, unspecified, uncomplicated; Z79.899 Other long term (current) drug therapy; Z88.1 Allergy status to other antibiotic agents; Z88.2 Allergy status to sulfonamides
CPT/HCPCS: 82075; 99284

== ENCOUNTER 2018-11-26 20:06 | Emergency (ER) | payer OTHER ==
[2018-11-26 20:32] VITALS: BP 116/64; PULSE 81; RESP 16; TEMP 98.2
[2018-11-26] MEDS ORDERED: KETOROLAC 30 MG/ML 1 ML VIAL IM STA (21:16)
--- NOTE | 2018-11-26 22:00 | ED ---
General Adult HPI - General Chief complaint: Extremity Injury, Lower Stated complaint: Pain in both legs Time Seen by Provider: 11/26/18 20:50 Source: patient Mode of arrival: ambulatory Limitations: no limitations - History of Present Illness Initial comments: Patient is a 28-year-old male presenting to emergency Department with bilateral hamstring pain. Patient reports the pain started earlier this morning and radiates to the popliteal region. Patient reports states the pain does not radiate anywhere. Patient denies numbness or tingling. 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 Patient reports the pain is alleviated with rest and exacerbated with knee extension bilaterally. Patient reports the left leg hurts more to the right. Patient denies taking any medication to alleviate the pain. Patient denies shortness of breath, chest pain, chest tightness, prolonged periods of inactivity, chemotherapy, cancer or history of hypercoagulable diseases. She denies erythema, redness or skin discoloration. - Related Data Home Medications Medication Instructions Recorded Confirmed Ranitidine HCl [Zantac] 150 mg PO BID 09/04/16 03/20/17 Citalopram Hydrobromide [CeleXA] 40 mg PO DAILY 02/04/17 03/20/17 OXcarbazepine [Trileptal] 600 mg PO BID 02/04/17 03/20/17 ALPRAZolam [Xanax] 1 mg PO TID PRN 03/20/17 03/20/17 Dextroamphetamine/Amphetamine 20 mg PO TID 03/20/17 03/20/17 [Adderall] busPIRone HCl [Buspar] 10 mg PO DAILY 03/20/17 03/20/17 Previous Rx's Medication Instructions Recorded Ibuprofen [Motrin] 600 mg PO Q8HR PRN #30 tab 11/26/18 Allergies Allergy/AdvReac Type Severity Reaction Status Date / Time erythromycin base Allergy Unknown Verified 11/26/18 20:32 [From Pediazole] Childhood sulfisoxazole Allergy Unknown Verified 11/26/18 20:32 [From Pediazole] Childhood Review of Systems ROS Statement: Those systems with pertinent positive or pertinent negative responses have been documented in the HPI. ROS Other: All systems not noted in ROS Statement are negative. Past Medical History Past Medical History: Asthma, GERD/Reflux Additional Past Medical History / Comment(s): HX OF ASTHMA (NO PROBLEMS NOW). History of Any Multi-Drug Resistant Organisms: None Reported Past Surgical History: Adenoidectomy, Hernia Repair, Tonsillectomy Additional Past Surgical History / Comment(s): web foot repair Additional Past Anesthesia/Blood Transfusion Reaction / Comment(s): NEVER RECEIVED ANESTHESIA. Past Psychological History: Anxiety, Depression Smoking Status: Current every day smoker Past Alcohol Use History: None Reported Past Drug Use History: None Reported - Past Family History Mother Family Medical History: No Reported History General Exam - General Exam Comments Initial Comments: General: Well-developed well-nourished distress HEENT: Normocephalic/atraumatic, PERLL Neck: Supple, nontender, trachea midline Chest/Lungs: Normal respirations, no signs of respiratory distress clear to auscultation bilaterally no wheezes, rales, rhonchi Cardiac: Regular rate and rhythm, normal S1-S2, no murmurs rubs or gallops Abdomen/GI: Soft nontender, bowel sounds equal or quadrant x4, no guarding, no rebound no CVA tenderness Musculoskeletal: +2 dorsalis pedis and posterior tibialis, bilaterally. No erythema, redness or masses noted on bilateral lower extremities. No edema noted. Mild to moderate Tenderness on palpation on the posterior aspect of the left upper leg. Mild tenderness on palpation on the posterior aspect of the right leg. Skin: Warmth, no rashes or lesions, no cyanosis or diaphoresis Neurologic: AAO x 3, CN 2-12 intact, Psychiatric: Mood and affect normal, judgment normal Limitations: no limitations Course Vital Signs 11/26/18 20:30 Temperature 98.2 F Pulse Rate 81 Respiratory 16 Rate Blood Pressure 116/64 O2 Sat by Pulse 98 Oximetry Medical Decision Making - Medical Decision Making Patient is a 28-year-old male presenting to emergency Department with the bilateral posterior upper leg pain. Patient was given Toradol to alleviate the pain. After medication the pain became localized only to the left left upper thigh. Based on physical examination a history of suspect the patient to have developed a muscle strain. Patient advised about hamstring exercises to improve pain, mobility and flexibility. I advised the patient to use warm compresses and massage the tender areas. Patient advised to alternate between Tylenol and ibuprofen for pain control. Patient advised to follow-up with primary care. Patient advised to return to emergency department symptoms worsen. Case discussed with physician. Disposition Clinical Impression: Hamstring muscle strain Disposition: HOME SELF-CARE Condition: Stable Instructions (If sedation given, give patient instructions): Hamstring Exercises (ED) Additional Instructions: Please follow proper hamstring exercises. Alternate between Tylenol and ibuprofen for pain control. Please follow-up with primary care. Please return to emergency department if symptoms worsen. Prescriptions: Ibuprofen [Motrin] 600 mg PO Q8HR PRN #30 tab PRN Reason: Pain Is patient prescribed a controlled substance at d/c from ED?: No Referrals: None,Stated [Primary Care Provider] - 1-2 days Time of Disposition: 22:00
== END 2018-11-26 22:06 | disposition home or self-care (01) ==
LOC: EC 20:06
DX: S76.311A Strain of muscle, fascia and tendon of the posterior muscle group at thigh level, right thigh, initial encounter (principal); S76.312A Strain of muscle, fascia and tendon of the posterior muscle group at thigh level, left thigh, initial encounter; K21.9 Gastro-esophageal reflux disease without esophagitis; F41.9 Anxiety disorder, unspecified; F32.9 Major depressive disorder, single episode, unspecified; F17.200 Nicotine dependence, unspecified, uncomplicated; Z79.899 Other long term (current) drug therapy; Z88.1 Allergy status to other antibiotic agents; Z88.2 Allergy status to sulfonamides; X58.XXXA Exposure to other specified factors, initial encounter
CPT/HCPCS: 99283; 96372; J1885

== ENCOUNTER 2019-06-03 11:35 | Emergency (ER) | payer OTHER ==
[2019-06-03 12:13] VITALS: TEMP 98.1
[2019-06-03 12:51] LABS: Appearance,Urine Cloudy (Clear); Bilirubin,Urine Negative (Negative); Blood,Urine Large (Negative); Color,Urine Red; Glucose,Urine (UA) Negative (Negative); Ketones,Urine Negative (Negative); Leukocyte Esterase,Urine Small (Negative); Mucus,Urine Few /hpf; Nitrite,Urine Negative (Negative); PH, Urine 6.5 (5.0-8.0); Protein,Urine 1+ (Negative); RBC,Urine >182 /hpf (0-5); Specific Gravity,Urine 1.022 (1.001-1.035); WBC,Urine 1 /hpf (0-5)
[2019-06-03 13:38] LABS: Basophils # (A) 0.1 k/uL (0-0.2); Basophils % (A) 1 %; Eosinophils # (A) 0.4 k/uL (0-0.7); Eosinophils % (A) 4 %; HGB 15.8 gm/dL (13.0-17.5); Lymphocytes # (A) 2.9 k/uL (1.0-4.8); Lymphocytes % (A) 31 %; MCH 29.6 pg (25.0-35.0); MCHC 34.2 g/dL (31.0-37.0); MCV 86.6 fL (80.0-100.0); Mean Platelet Volume 7.9; Monocytes # (A) 0.7 k/uL (0-1.0); Monocytes % (A) 7 %; Neutrophils % (A) 54 %; Platelet Count 199 k/uL (150-450); RBC 5.32 m/uL (4.30-5.90); RDW 13.5 % (11.5-15.5); WBC 9.3 k/uL (3.8-10.6)
[2019-06-03 13:51] LABS: African American GFR (CKD) >90 (>60 ml/min/1.73 sqM); Anion Gap 7 mmol/L; Blood Urea Nitrogen 14 mg/dL (9-20); Calcium 9.3 mg/dL (8.4-10.2); Carbon Dioxide 25 mmol/L (22-30); Chloride 108 mmol/L (98-107); Glucose 81 mg/dL (74-99); Non-African American GFR(CKD) >90 (>60 ml/min/1.73 sqM); Potassium 4.2 mmol/L (3.5-5.1); Sodium 140 mmol/L (137-145)
--- NOTE | 2019-06-03 14:36 | CT ---
EXAMINATION TYPE: CT abdomen pelvis wo con DATE OF EXAM: 06/03/2019 COMPARISON: Ultrasound 05/18/2016 HISTORY: Left flank pain and hematuria. CT DLP: 662.6 mGycm Automated exposure control for dose reduction was used. TECHNIQUE: Helical acquisition of images was performed from the lung bases through the pelvis. FINDINGS: LUNG BASES: Subsegmental linear changes most typical of atelectasis. LIVER/GB: No significant abnormality is appreciated. PANCREAS: No significant abnormality is seen. SPLEEN: No significant abnormality is seen. ADRENALS: No significant abnormality is seen. KIDNEYS: Right kidney: No hydronephrosis or nephrolithiasis. There is a 1.5 cm mid pole anterior cortex lesion is indeterminate by noncontrast technique. Recommend follow-up ultrasound. Left kidney: There is mild left hydronephrosis secondary to a proximal ureteral calcification measuri ng 3-4 mm. This is approximately 1.5 cm distal to the UPJ. ADENOPATHY: None visualized. OSSEOUS STRUCTURES: No significant abnormality is seen. BOWEL: No significant abnormality is seen. OTHER: Aorta of normal caliber. No free fluid. No free air. IMPRESSION: 1. Mild left hydronephrosis secondary to proximal left renal calculus measuring 3-4 mm. 2. Indeterminate right renal lesion measuring 1.5 cm. Previous ultrasound 2016 did demonstrate a simp le cyst in the region which could be repeated to confirm stability.
--- NOTE | 2019-06-03 14:39 | ED ---
Male Urogenital HPI - General Chief complaint: Urogenital Stated complaint: Blood in Urine Time Seen by Provider: 06/03/19 13:00 Source: patient Mode of arrival: ambulatory Limitations: no limitations - History of Present Illness Initial comments: 28yo male presented for blood in urine this morning with left flank pain. Patient states the flank pain has subsided however he continues to have blood in his urine. Patient denies any fever or chills night sweats patient states he does have a history of kidney stones. He was a child. Patient denies any current nausea or vomiting. Patient denies any other associated symptoms at this time. Upon arrival patient appears well no signs of acute distress denies any dysuria urgency or frequency. - Related Data Home Medications Medication Instructions Recorded Confirmed RX: Ranitidine HCl [Zantac] 150 mg PO BID 09/04/16 03/20/17 RX: Citalopram Hydrobromide 40 mg PO DAILY 02/04/17 03/20/17 [CeleXA] RX: OXcarbazepine [Trileptal] 600 mg PO BID 02/04/17 03/20/17 ALPRAZolam [Xanax] 1 mg PO TID PRN 03/20/17 03/20/17 Dextroamphetamine/Amphetamine 20 mg PO TID 03/20/17 03/20/17 [Adderall] busPIRone HCl [Buspar] 10 mg PO DAILY 03/20/17 03/20/17 Previous Rx's Medication Instructions Recorded RX: Ibuprofen [Motrin] 600 mg PO Q8HR PRN #30 tab 11/26/18 Allergies Allergy/AdvReac Type Severity Reaction Status Date / Time erythromycin base Allergy Unknown Verified 06/03/19 12:14 [From Pediazole] Childhood sulfisoxazole Allergy Unknown Verified 06/03/19 12:14 [From Pediazole] Childhood Review of Systems ROS Statement: Those systems with pertinent positive or pertinent negative responses have been documented in the HPI. ROS Other: All systems not noted in ROS Statement are negative. Past Medical History Past Medical History: Asthma, GERD/Reflux Additional Past Medical History / Comment(s): HX OF ASTHMA (NO PROBLEMS NOW). History of Any Multi-Drug Resistant Organisms: None Reported Past Surgical History: Adenoidectomy, Hernia Repair, Tonsillectomy Additional Past Surgical History / Comment(s): web foot repair Additional Past Anesthesia/Blood Transfusion Reaction / Comment(s): NEVER RECEIVED ANESTHESIA. Past Psychological History: Anxiety, Depression Smoking Status: Current every day smoker Past Alcohol Use History: None Reported Past Drug Use History: Marijuana - Past Family History Mother Family Medical History: No Reported History General Exam - General Exam Comments Initial Comments: General: The patient is awake and alert, in no distress, and does not appear acutely ill. Eye: +3 mm pupils are equal, round and reactive to light, extra-ocular movements are intact. No nystagmus. There is normal conjunctiva bilaterally. No signs of icterus. Ears, nose, mouth and throat: There are moist mucous membranes and no oral lesions. Neck: The neck is supple, there is no tenderness or JVD. Cardiovascular: There is a regular rate and rhythm. No murmur, rub or gallop is appreciated. Respiratory: Lungs are clear to auscultation, respirations are non-labored, breath sounds are equal. No wheezes, stridor, rales, or rhonchi. Gastrointestinal: Soft, non-distended, non-tender abdomen without masses or organomegaly noted. There is no rebound or guarding present. Musculoskeletal: Normal ROM, no tenderness. Strength 5/5. Sensation intact. Pulses equal bilaterally 2+. Neurological: A&O x 3. CN II-XII intact grossly, There are no obvious motor or sensory deficits. Coordination appears grossly intact. Speech is normal. Skin: Skin is warm and dry and no rashes or lesions are noted. Psychiatric: Cooperative, appropriate mood & affect, normal judgment. Limitations: no limitations Course Vital Signs 06/03/19 06/03/19 12:08 14:47 Temperature 98.1 F Pulse Rate 70 72 Respiratory 18 16 Rate Blood Pressure 113/68 110/71 O2 Sat by Pulse 98 99 Oximetry Medical Decision Making - Medical Decision Making 28-year-old male presented for left flank pain and hematuria. The stone present on CT without contrast as well as incidental renal cyst versus mass. Patient is currently pain-free appears well and nontoxic no signs of septic stone at this time feel he stable for discharge and outpatient primary care follow-up as well as urological follow-up. I discussed the incidental findings the patient and recommended patient have follow-up on an outpatient basis and he's verbalized understanding was discharged appearing well and discussed the case with attending provider Dr. Ruelas - Lab Data Result diagrams: 06/03/19 13:30 06/03/19 13:30 Lab Results 06/03/19 06/03/19 06/03/19 Range/Units 12:15 13:30 13:30 WBC 9.3 (3.8-10.6) k/uL RBC 5.32 (4.30-5.90) m/uL Hgb 15.8 (13.0-17.5) gm/dL Hct 46.0 (39.0-53.0) % MCV 86.6 (80.0-100.0) fL MCH 29.6 (25.0-35.0) pg MCHC 34.2 (31.0-37.0) g/dL RDW 13.5 (11.5-15.5) % Plt Count 199 (150-450) k/uL Neutrophils % 54 % Lymphocytes % 31 % Monocytes % 7 % Eosinophils % 4 % Basophils % 1 % Neutrophils # 5.0 (1.3-7.7) k/uL Lymphocytes # 2.9 (1.0-4.8) k/uL Monocytes # 0.7 (0-1.0) k/uL Eosinophils # 0.4 (0-0.7) k/uL Basophils # 0.1 (0-0.2) k/uL Sodium 140 (137-145) mmol/L Potassium 4.2 (3.5-5.1) mmol/L Chloride 108 H (98-107) mmol/L Carbon Dioxide 25 (22-30) mmol/L Anion Gap 7 mmol/L BUN 14 (9-20) mg/dL Creatinine 0.80 (0.66-1.25) mg/dL Est GFR (CKD-EPI)AfAm >90 (>60 ml/min/1.73 sqM) Est GFR (CKD-EPI)NonAf >90 (>60 ml/min/1.73 sqM) Glucose 81 (74-99) mg/dL Calcium 9.3 (8.4-10.2) mg/dL Urine Color Red Urine Appearance Cloudy (Clear) Urine pH 6.5 (5.0-8.0) Ur Specific [place] 1.022 (1.001-1.035) Urine Protein 1+ H (Negative) Urine Glucose (UA) Negative (Negative) Urine Ketones Negative (Negative) Urine Blood Large H (Negative) Urine Nitrite Negative (Negative) Urine Bilirubin Negative (Negative) Urine Urobilinogen 2.0 (<2.0) mg/dL Ur Leukocyte Esterase Small H (Negative) Urine RBC >182 H (0-5) /hpf Urine WBC 1 (0-5) /hpf Urine Mucus Few H (None) /hpf Disposition Clinical Impression: Urolithiasis, Renal cyst Disposition: HOME SELF-CARE Condition: Good Instructions (If sedation given, give patient instructions): Kidney Stones (ED) Additional Instructions: Please use medication as discussed. Please follow-up with urology in next week. Please return to emergency room if the symptoms increase or worsen or for any other concerns. Is patient prescribed a controlled substance at d/c from ED?: No Referrals: None,Stated [Primary Care Provider] - 1-2 days Kashif Sharma MD [STAFF PHYSICIAN] - 1-2 days Time of Disposition: 14:38
[2019-06-03 14:48] VITALS: BP 110/71; PULSE 72; RESP 16
== END 2019-06-03 14:45 | disposition home or self-care (01) ==
LOC: EC 11:35
DX: N28.1 Cyst of kidney, acquired (principal); N20.9 Urinary calculus, unspecified; K21.9 Gastro-esophageal reflux disease without esophagitis; F41.9 Anxiety disorder, unspecified; F32.9 Major depressive disorder, single episode, unspecified; F17.200 Nicotine dependence, unspecified, uncomplicated; Z79.899 Other long term (current) drug therapy; Z88.1 Allergy status to other antibiotic agents; Z88.2 Allergy status to sulfonamides
CPT/HCPCS: 36415; 74176; 80048; 81001; 85025; 99284

== ENCOUNTER 2019-06-19 20:50 | Emergency (ER) | payer OTHER ==
[2019-06-19 20:58] VITALS: BP 124/62; PULSE 109; RESP 22; TEMP 98.4
[2019-06-19] MEDS ORDERED: LORazepam 1 MG TAB PO STA (21:18)
--- NOTE | 2019-06-19 21:22 | ED ---
Anxiety HPI - General Chief Complaint: Anxiety Stated Complaint: Anxiety Time Seen by Provider: 06/19/19 21:00 Source: patient Mode of arrival: ambulatory - History of Present Illness Initial Comments: Patient is a 28-year-old male presenting to emergency Department with complaints of anxiety for the past few days. Patient has a history of anxiety and depression. He does see a psychiatrist once a month. Patient states he used to take Ativan but was able take himself off of that in January of last year. Patient states a combination of stress and smoking marijuana for the past few days has causes anxiety to increase. Patient is requesting a medication to calm him. He denies any suicidal or homicidal thoughts. He does not want an EPS evaluation. He denies recent fever, chills. He has no other complaints at this time. Upon arrival to the ER, his vital signs are stable. - Related Data Home Medications: Home Medications Medication Instructions Recorded Confirmed Ranitidine HCl [Zantac] 150 mg PO BID 09/04/16 03/20/17 Citalopram Hydrobromide [CeleXA] 40 mg PO DAILY 02/04/17 03/20/17 OXcarbazepine [Trileptal] 600 mg PO BID 02/04/17 03/20/17 ALPRAZolam [Xanax] 1 mg PO TID PRN 03/20/17 03/20/17 Dextroamphetamine/Amphetamine 20 mg PO TID 03/20/17 03/20/17 [Adderall] busPIRone HCl [Buspar] 10 mg PO DAILY 03/20/17 03/20/17 Previous Rx's Medication Instructions Recorded Ibuprofen [Motrin] 600 mg PO Q8HR PRN #30 tab 11/26/18 Allergies/Adverse Reactions: Allergies Allergy/AdvReac Type Severity Reaction Status Date / Time erythromycin base Allergy Unknown Verified 06/19/19 20:56 [From Pediazole] Childhood sulfisoxazole Allergy Unknown Verified 06/19/19 20:56 [From Pediazole] Childhood Review of Systems ROS Statement: Those systems with pertinent positive or pertinent negative responses have been documented in the HPI. ROS Other: All systems not noted in ROS Statement are negative. Past Medical History Past Medical History: Asthma, GERD/Reflux Additional Past Medical History / Comment(s): HX OF ASTHMA (NO PROBLEMS NOW). History of Any Multi-Drug Resistant Organisms: None Reported Past Surgical History: Adenoidectomy, Hernia Repair, Tonsillectomy Additional Past Surgical History / Comment(s): web foot repair Additional Past Anesthesia/Blood Transfusion Reaction / Comment(s): NEVER RECEIVED ANESTHESIA. Past Psychological History: Anxiety, Depression Smoking Status: Current every day smoker Past Alcohol Use History: None Reported Past Drug Use History: Marijuana - Past Family History Mother Family Medical History: No Reported History General Exam - General Exam Comments Initial Comments: GENERAL: Well-appearing, well-nourished and in no acute distress. HEAD: Atraumatic, normocephalic. EYES: Pupils equal round and reactive to light, extraocular movements intact, sclera anicteric, conjunctiva are normal. ENT: TMs normal, nares patent, oropharynx clear without exudates. Moist mucous membranes. NECK: Normal range of motion, supple without lymphadenopathy or JVD. LUNGS: Breath sounds clear to auscultation bilaterally and equal. No wheezes rales or rhonchi. HEART: Regular rate and rhythm without murmurs, rubs or gallops. ABDOMEN: Soft, nontender, normoactive bowel sounds. No guarding, no rebound. No masses appreciated. : Deferred EXTREMITIES: Normal range of motion, no pitting or edema. No clubbing or cyanosis. NEUROLOGICAL: Normal speech, normal gait. PSYCH: Normal mood, normal affect. SKIN: Warm, Dry, normal turgor, no rashes or lesions noted. Limitations: no limitations Course Vital Signs 06/19/19 20:54 Temperature 98.4 F Pulse Rate 109 H Respiratory 22 Rate Blood Pressure 124/62 O2 Sat by Pulse 96 Oximetry Medical Decision Making - Medical Decision Making Patient is a 28-year-old male presenting with anxiety for the past few days. Patient has a history of anxiety and does see a psychiatrist once a month. Vital signs are stable. Patient denies suicidal or homicidal thoughts. Patient will be given 1 mg of Ativan in the ER. I discussed with patient that I cannot give him a prescription for more. He will follow up with his psychiatrist on Friday if his symptoms persist. He is in agreement with this plan of care. Return parameters were discussed with the patient and he verbalized understanding. Case discussed with Dr. Loyola. Disposition Clinical Impression: Acute anxiety Disposition: HOME SELF-CARE Condition: Stable Instructions (If sedation given, give patient instructions): Anxiety (ED) Additional Instructions: Please return to the Emergency Department if symptoms worsen or any other concerns. Follow up with psychiatrist if symptoms persist. Is patient prescribed a controlled substance at d/c from ED?: No Referrals: None,Stated [Primary Care Provider] - 1-2 days
== END 2019-06-19 21:27 | disposition home or self-care (01) ==
LOC: EC 20:50
DX: F41.9 Anxiety disorder, unspecified (principal); K21.9 Gastro-esophageal reflux disease without esophagitis; F32.9 Major depressive disorder, single episode, unspecified; F17.200 Nicotine dependence, unspecified, uncomplicated; Z88.1 Allergy status to other antibiotic agents; Z88.2 Allergy status to sulfonamides; Z79.899 Other long term (current) drug therapy
CPT/HCPCS: 99283

== ENCOUNTER 2019-06-24 17:10 | Emergency (ER) | payer OTHER ==
[2019-06-24 17:13] VITALS: BP 126/82; PULSE 71; RESP 20; TEMP 97.7
--- NOTE | 2019-06-24 17:37 | ED ---
General Adult HPI - General Chief complaint: Urogenital Stated complaint: Blood in urine Time Seen by Provider: 06/24/19 17:25 Source: patient Mode of arrival: ambulatory Limitations: no limitations - History of Present Illness Initial comments: Patient is a 28-year-old male presenting to the emergency department with chief complaint of gross hematuria. Patient was in the ED 2 weeks ago with the same chief complaint was advised to follow-up with urology. Patient reports that his last visit he continues to have hematuria. He states is actually no pain anywhere along his abdomen or back. No nausea vomiting diarrhea. She states that he is a chronic smoker. Patient states due to his insurance situation he was not able to follow-up with urology. Patient states that he has been drinking and eating without issues. - Related Data Home Medications Medication Instructions Recorded Confirmed Ranitidine HCl [Zantac] 150 mg PO BID 09/04/16 03/20/17 Citalopram Hydrobromide [CeleXA] 40 mg PO DAILY 02/04/17 03/20/17 OXcarbazepine [Trileptal] 600 mg PO BID 02/04/17 03/20/17 ALPRAZolam [Xanax] 1 mg PO TID PRN 03/20/17 03/20/17 Dextroamphetamine/Amphetamine 20 mg PO TID 03/20/17 03/20/17 [Adderall] busPIRone HCl [Buspar] 10 mg PO DAILY 03/20/17 03/20/17 Previous Rx's Medication Instructions Recorded Ibuprofen [Motrin] 600 mg PO Q8HR PRN #30 tab 11/26/18 Allergies Allergy/AdvReac Type Severity Reaction Status Date / Time erythromycin base Allergy Unknown Verified 06/24/19 17:13 [From Pediazole] Childhood sulfisoxazole Allergy Unknown Verified 06/24/19 17:13 [From Pediazole] Childhood Review of Systems ROS Statement: Those systems with pertinent positive or pertinent negative responses have been documented in the HPI. ROS Other: All systems not noted in ROS Statement are negative. Past Medical History Past Medical History: Asthma, GERD/Reflux Additional Past Medical History / Comment(s): HX OF ASTHMA (NO PROBLEMS NOW). History of Any Multi-Drug Resistant Organisms: None Reported Past Surgical History: Adenoidectomy, Hernia Repair, Tonsillectomy Additional Past Surgical History / Comment(s): web foot repair Additional Past Anesthesia/Blood Transfusion Reaction / Comment(s): NEVER RECEIVED ANESTHESIA. Past Psychological History: Anxiety, Depression Smoking Status: Current every day smoker Past Alcohol Use History: None Reported Past Drug Use History: Marijuana - Past Family History Mother Family Medical History: No Reported History General Exam Limitations: no limitations General appearance: alert, in no apparent distress Head exam: Present: atraumatic, normocephalic, normal inspection Eye exam: Present: normal appearance Pupils: Present: normal accommodation ENT exam: Present: normal exam, normal oropharynx, mucous membranes dry, TM's normal bilaterally, normal external ear exam Neck exam: Present: normal inspection, full ROM Respiratory exam: Present: normal lung sounds bilaterally Cardiovascular Exam: Present: regular rate, normal rhythm, normal heart sounds exam: Present: normal inspection. Absent: testicular tenderness, urethral discharge, scrotal swelling Extremities exam: Present: normal inspection, normal capillary refill Back exam: Present: normal inspection, full ROM. Absent: CVA tenderness (R), CVA tenderness (L) Neurological exam: Present: alert, oriented X3 Psychiatric exam: Present: normal affect, normal mood Skin exam: Present: warm, dry, intact, normal color Course Vital Signs 06/24/19 17:11 Temperature 97.7 F Pulse Rate 71 Respiratory 20 Rate Blood Pressure 126/82 O2 Sat by Pulse 97 Oximetry Medical Decision Making - Medical Decision Making Patient is a 28-year-old male presenting to the emergency department with chief complaint of gross hematuria. Patient was in the ED 2 weeks ago with the same chief complaint was advised to follow-up with urology. He had a CT of the abdomen showing a cyst under a kidney. Repeat ultrasound shows a persistent mass in the kidney most likely being assessed. UA shows hematuria with no signs of a urinary tract infection. Physical examination is unremarkable. No testicular pain or tenderness. No penile discharge. Patient is otherwise completely asymptomatic. CBC CMP are unremarkable. Patient advised to follow- up with urology. Strict return parameters were thoroughly discussed with patient was understanding and agreeable. Case discussed with physician. - Lab Data Result diagrams: 06/24/19 18:46 06/24/19 18:46 Lab Results 06/24/19 06/24/19 06/24/19 Range/Units 17:30 18:46 18:46 WBC 10.9 H (3.8-10.6) k/uL RBC 5.14 (4.30-5.90) m/uL Hgb 15.5 (13.0-17.5) gm/dL Hct 44.1 (39.0-53.0) % MCV 85.9 (80.0-100.0) fL MCH 30.2 (25.0-35.0) pg MCHC 35.2 (31.0-37.0) g/dL RDW 13.1 (11.5-15.5) % Plt Count 238 (150-450) k/uL Neutrophils % 60 % Lymphocytes % 28 % Monocytes % 7 % Eosinophils % 2 % Basophils % 2 % Neutrophils # 6.5 (1.3-7.7) k/uL Lymphocytes # 3.0 (1.0-4.8) k/uL Monocytes # 0.8 (0-1.0) k/uL Eosinophils # 0.2 (0-0.7) k/uL Basophils # 0.2 (0-0.2) k/uL PT (9.0-12.0) sec INR (<1.2) APTT (22.0-30.0) sec Sodium 140 (137-145) mmol/L Potassium 4.0 (3.5-5.1) mmol/L Chloride 104 (98-107) mmol/L Carbon Dioxide 22 (22-30) mmol/L Anion Gap 14 mmol/L BUN 16 (9-20) mg/dL Creatinine 0.78 (0.66-1.25) mg/dL Est GFR (CKD-EPI)AfAm >90 (>60 ml/min/1.73 sqM) Est GFR (CKD-EPI)NonAf >90 (>60 ml/min/1.73 sqM) Glucose 65 L (74-99) mg/dL Calcium 9.2 (8.4-10.2) mg/dL Total Bilirubin 0.9 (0.2-1.3) mg/dL Conjugated Bilirubin 0.0 (0.0-0.3) mg/dL Unconjugated Bilirubin 0.5 (0.0-1.1) mg/dL Delta Bilirubin 0.4 H (0.0-0.2) mg/dL AST 23 (17-59) U/L ALT 21 (4-49) U/L Alkaline Phosphatase 98 (38-126) U/L Total Protein 7.6 (6.3-8.2) g/dL Albumin 4.8 (3.5-5.0) g/dL Urine Color Dark Brown Urine Appearance Cloudy (Clear) Urine pH 5.5 (5.0-8.0) Ur Specific [place] 1.025 (1.001-1.035) Urine Protein 2+ H (Negative) Urine Glucose (UA) Negative (Negative) Urine Ketones 4+ H (Negative) Urine Blood Large H (Negative) Urine Nitrite Negative (Negative) Urine Bilirubin Negative (Negative) Urine Urobilinogen 3.0 (<2.0) mg/dL Ur Leukocyte Esterase Small H (Negative) Urine RBC >182 H (0-5) /hpf Urine WBC 8 H (0-5) /hpf Urine Mucus Many H (None) /hpf 06/24/19 Range/Units 18:46 WBC (3.8-10.6) k/uL RBC (4.30-5.90) m/uL Hgb (13.0-17.5) gm/dL Hct (39.0-53.0) % MCV (80.0-100.0) fL MCH (25.0-35.0) pg MCHC (31.0-37.0) g/dL RDW (11.5-15.5) % Plt Count (150-450) k/uL Neutrophils % % Lymphocytes % % Monocytes % % Eosinophils % % Basophils % % Neutrophils # (1.3-7.7) k/uL Lymphocytes # (1.0-4.8) k/uL Monocytes # (0-1.0) k/uL Eosinophils # (0-0.7) k/uL Basophils # (0-0.2) k/uL PT 10.3 (9.0-12.0) sec INR 1.0 (<1.2) APTT 26.7 (22.0-30.0) sec Sodium (137-145) mmol/L Potassium (3.5-5.1) mmol/L Chloride (98-107) mmol/L Carbon Dioxide (22-30) mmol/L Anion Gap mmol/L BUN (9-20) mg/dL Creatinine (0.66-1.25) mg/dL Est GFR (CKD-EPI)AfAm (>60 ml/min/1.73 sqM) Est GFR (CKD-EPI)NonAf (>60 ml/min/1.73 sqM) Glucose (74-99) mg/dL Calcium (8.4-10.2) mg/dL Total Bilirubin (0.2-1.3) mg/dL Conjugated Bilirubin (0.0-0.3) mg/dL Unconjugated Bilirubin (0.0-1.1) mg/dL Delta Bilirubin (0.0-0.2) mg/dL AST (17-59) U/L ALT (4-49) U/L Alkaline Phosphatase (38-126) U/L Total Protein (6.3-8.2) g/dL Albumin (3.5-5.0) g/dL Urine Color Urine Appearance (Clear) Urine pH (5.0-8.0) Ur Specific [place] (1.001-1.035) Urine Protein (Negative) Urine Glucose (UA) (Negative) Urine Ketones (Negative) Urine Blood (Negative) Urine Nitrite (Negative) Urine Bilirubin (Negative) Urine Urobilinogen (<2.0) mg/dL Ur Leukocyte Esterase (Negative) Urine RBC (0-5) /hpf Urine WBC (0-5) /hpf Urine Mucus (None) /hpf Disposition Clinical Impression: Gross hematuria Disposition: HOME SELF-CARE Condition: Stable Instructions (If sedation given, give patient instructions): Hematuria (ED) Additional Instructions: Please follow-up with urology. Please return to emergency department if symptoms worsen. Is patient prescribed a controlled substance at d/c from ED?: No Referrals: None,Stated [Primary Care Provider] - 1-2 days Rich Schwartz MD [STAFF PHYSICIAN] - 1-2 days Tian Daniels MD [STAFF PHYSICIAN] - 1-2 days Time of Disposition: 20:05
[2019-06-24 18:03] LABS: Appearance,Urine Cloudy (Clear); Bilirubin,Urine Negative (Negative); Blood,Urine Large (Negative); Color,Urine Dark Brown; Glucose,Urine (UA) Negative (Negative); Ketones,Urine 4+ (Negative); Leukocyte Esterase,Urine Small (Negative); Mucus,Urine Many /hpf; Nitrite,Urine Negative (Negative); PH, Urine 5.5 (5.0-8.0); Protein,Urine 2+ (Negative); RBC,Urine >182 /hpf (0-5); Specific Gravity,Urine 1.025 (1.001-1.035); WBC,Urine 8 /hpf (0-5)
[2019-06-24] MEDS ORDERED: SODIUM CHLORIDE 0.9% 1,000 ML IV STA (18:37)
[2019-06-24 18:53] LABS: Basophils # (A) 0.2 k/uL (0-0.2); Basophils % (A) 2 %; Eosinophils # (A) 0.2 k/uL (0-0.7); Eosinophils % (A) 2 %; HCT 44.1 % (39.0-53.0); HGB 15.5 gm/dL (13.0-17.5); Lymphocytes % (A) 28 %; MCH 30.2 pg (25.0-35.0); MCHC 35.2 g/dL (31.0-37.0); MCV 85.9 fL (80.0-100.0); Mean Platelet Volume 7.6; Monocytes # (A) 0.8 k/uL (0-1.0); Monocytes % (A) 7 %; Neutrophils # (A) 6.5 k/uL (1.3-7.7); Neutrophils % (A) 60 %; Platelet Count 238 k/uL (150-450); RBC 5.14 m/uL (4.30-5.90); RDW 13.1 % (11.5-15.5); WBC 10.9 k/uL (3.8-10.6)
[2019-06-24 19:03] LABS: Partial Thromboplastin Time 26.7 sec (22.0-30.0); Prothrombin Time 10.3 sec (9.0-12.0)
[2019-06-24] MEDS: ALPRAZolam 0.5 MG TAB PO STA ×2 (19:09→19:28)
[2019-06-24 19:12] LABS: ALT 21 U/L (4-49); AST 23 U/L (17-59); African American GFR (CKD) >90 (>60 ml/min/1.73 sqM); Albumin 4.8 g/dL (3.5-5.0); Alkaline Phosphatase 98 U/L (38-126); Anion Gap 14 mmol/L; Bilirubin, Delta 0.4 mg/dL (0.0-0.2); Bilirubin,Unconjugated 0.5 mg/dL (0.0-1.1); Blood Urea Nitrogen 16 mg/dL (9-20); Calcium 9.2 mg/dL (8.4-10.2); Carbon Dioxide 22 mmol/L (22-30); Chloride 104 mmol/L (98-107); Glucose 65 mg/dL (74-99); Non-African American GFR(CKD) >90 (>60 ml/min/1.73 sqM); Sodium 140 mmol/L (137-145); Total Bilirubin 0.9 mg/dL (0.2-1.3); Total Protein 7.6 g/dL (6.3-8.2)
--- NOTE | 2019-06-24 19:50 | US ---
EXAMINATION TYPE: US kidneys/renal and bladder DATE OF EXAM: 06/24/2019 COMPARISON: CT, US CLINICAL HISTORY: Hematuria x 1 day. Hx kidney stones. EXAM MEASUREMENTS: Right Kidney: 9.5 x 5.1 x 5.4 cm Left Kidney: 9.7 x 5.8 x 6.1 cm Right Kidney: No hydronephrosis. No evidence of calcifications. Anechoic smoothly marginated mass is seen medially, measuring 2.0 x 1.9 x 1.9 cm. This mass demonstrates posterior acoustic wall enhancem ent and through sound acoustic transmission, consistent with cyst. Left Kidney: No gavin hydronephrosis, but upper collecting system prominence noted. No evidence of ca lcifications. No mass. Bladder: Not fully distended. Wall measures 0.46 cm. Bilateral Jets seen: Right jet seen IMPRESSION: 1. No acute process. 2. No sonographic correlate for hematuria.
== END 2019-06-24 20:24 | disposition home or self-care (01) ==
LOC: EC 17:10
DX: N28.1 Cyst of kidney, acquired (principal); K21.9 Gastro-esophageal reflux disease without esophagitis; F41.9 Anxiety disorder, unspecified; F32.9 Major depressive disorder, single episode, unspecified; F17.200 Nicotine dependence, unspecified, uncomplicated; Z79.899 Other long term (current) drug therapy; Z88.1 Allergy status to other antibiotic agents; Z88.2 Allergy status to sulfonamides; Z53.29 Procedure and treatment not carried out because of patient's decision for other reasons
CPT/HCPCS: 36415; 76770; 80053; 81001; 82248; 85025; 85610; 85730; 96360; 99284

== ENCOUNTER 2019-08-18 07:56 | Emergency (ER) | payer OTHER ==
[2019-08-18 08:04] VITALS: TEMP 97.7
[2019-08-18] MEDS ORDERED: SODIUM CHLORIDE 0.9% 1,000 ML IV STA ×2 (08:15)
[2019-08-18] MEDS ORDERED: KETOROLAC 30 MG/ML 1 ML VIAL IVP STA (08:16)
--- NOTE | 2019-08-18 08:20 | ED ---
Male Urogenital HPI - General Chief complaint: Urogenital Stated complaint: kidney stone Time Seen by Provider: 08/18/19 08:06 Source: patient, RN notes reviewed, old records reviewed Mode of arrival: ambulatory Limitations: no limitations - History of Present Illness Initial comments: This patient's a 29-year-old male presents emergency department today with concern for kidney stone. Patient reports that he was diagnosed with a ureter stone measuring 3 cm. He is scheduled to see a neurologist today. Patient reports that since he ran out of his pain medications from last visit he has not having pain at the tip of the penis. He denies any penile discharge. Denies any fevers or chills. Denies any significant flank pain. Patient reports the pain is only related to the penis. Patient states that he's had no nausea or vomiting. - Related Data Home Medications Medication Instructions Recorded Confirmed Ranitidine HCl [Zantac] 150 mg PO BID 09/04/16 03/20/17 Citalopram Hydrobromide [CeleXA] 40 mg PO DAILY 02/04/17 03/20/17 OXcarbazepine [Trileptal] 600 mg PO BID 02/04/17 03/20/17 ALPRAZolam [Xanax] 1 mg PO TID PRN 03/20/17 03/20/17 Dextroamphetamine/Amphetamine 20 mg PO TID 03/20/17 03/20/17 [Adderall] busPIRone HCl [Buspar] 10 mg PO DAILY 03/20/17 03/20/17 Previous Rx's Medication Instructions Recorded Ibuprofen [Motrin] 600 mg PO Q8HR PRN #30 tab 11/26/18 Cephalexin [Keflex] 500 mg PO Q6HR 7 Days #28 cap 08/01/19 Cephalexin [Keflex] 500 mg PO Q8HR 7 Days #28 cap 08/01/19 HYDROcodone/APAP 5-325MG [[place] 1 tab PO Q4HR PRN 3 Days #18 tab 08/01/19 5-325] HYDROcodone/APAP 5-325MG [[place] 1 tab PO Q6HR PRN 3 Days #12 tab 08/01/19 5-325] Ketorolac [Toradol] 10 mg PO Q6HR #12 tab 08/01/19 Ketorolac [Toradol] 10 mg PO Q6HR #12 tab 08/01/19 Ondansetron HCl [Zofran] 4 mg PO Q8H PRN #20 tab 08/01/19 Ondansetron Odt [Zofran Odt] 4 mg PO Q8HR PRN #12 tab 08/01/19 Tamsulosin HCl [Flomax] 0.4 mg PO DAILY #7 capsule 08/01/19 Tamsulosin HCl [Flomax] 0.4 mg PO DAILY #7 capsule 08/01/19 Ketorolac [Toradol] 10 mg PO Q6HR #12 tab 08/18/19 Tamsulosin [Flomax] 0.4 mg PO DAILY #7 cap 08/18/19 Allergies Allergy/AdvReac Type Severity Reaction Status Date / Time erythromycin base Allergy Unknown Verified 08/01/19 08:55 [From Pediazole] Childhood Penicillins Allergy Unknown Verified 08/18/19 08:05 Childhood sulfisoxazole Allergy Unknown Verified 08/01/19 08:55 [From Pediazole] Childhood Review of Systems ROS Statement: Those systems with pertinent positive or pertinent negative responses have been documented in the HPI. ROS Other: All systems not noted in ROS Statement are negative. Past Medical History Past Medical History: Asthma, GERD/Reflux Additional Past Medical History / Comment(s): HX OF ASTHMA (NO PROBLEMS NOW). History of Any Multi-Drug Resistant Organisms: None Reported Past Surgical History: Adenoidectomy, Hernia Repair, Tonsillectomy Additional Past Surgical History / Comment(s): web foot repair Additional Past Anesthesia/Blood Transfusion Reaction / Comment(s): NEVER RECEIVED ANESTHESIA. Past Psychological History: Anxiety, Depression Smoking Status: Current every day smoker Past Alcohol Use History: Occasional Past Drug Use History: Marijuana - Past Family History Mother Family Medical History: No Reported History General Exam - General Exam Comments Initial Comments: 29-year-old male. Alert and oriented. Limitations: no limitations General appearance: alert, in no apparent distress Head exam: Present: atraumatic, normocephalic, normal inspection Eye exam: Present: normal appearance, PERRL, EOMI. Absent: scleral icterus, conjunctival injection, periorbital swelling ENT exam: Present: normal exam, mucous membranes moist Neck exam: Present: normal inspection. Absent: tenderness, meningismus, lymphadenopathy Respiratory exam: Present: normal lung sounds bilaterally. Absent: respiratory distress, wheezes, rales, rhonchi, stridor Cardiovascular Exam: Present: regular rate, normal rhythm, normal heart sounds. Absent: systolic murmur, diastolic murmur, rubs, gallop, clicks GI/Abdominal exam: Present: soft, normal bowel sounds. Absent: distended, tenderness, guarding, rebound, rigid Extremities exam: Present: normal inspection, full ROM, normal capillary refill. Absent: tenderness, pedal edema, joint swelling, calf tenderness Back exam: Present: normal inspection Neurological exam: Present: alert, oriented X3, CN II-XII intact Course Vital Signs 08/18/19 08/18/19 08/18/19 08:02 08:04 09:04 Temperature 97.7 F Pulse Rate 69 Respiratory 17 20 20 Rate Blood Pressure 133/87 121/84 O2 Sat by Pulse 96 96 Oximetry 08/18/19 08/18/19 08/18/19 09:30 10:00 10:04 Temperature Pulse Rate Respiratory 18 Rate Blood Pressure 121/84 101/65 101/65 O2 Sat by Pulse 95 Oximetry 08/18/19 10:36 Temperature Pulse Rate 75 Respiratory 20 Rate Blood Pressure 111/75 O2 Sat by Pulse 98 Oximetry Medical Decision Making - Medical Decision Making 29-year-old male with history of penile pain and some lower abdominal pain with history of kidney stone. Patient reports is following up with urologist today. She was given IV Toradol, fluids. Lab work was reviewed and relatively unremar kable including normal kidney function. Patient reports pain is improved after Toradol. Patient's urinalysis is continue to show hematuria. He was recently treated with pain medicines and anti-inflammatories and the antibiotic for this. I discussed the Patient needs follow-up with urology because he does have a large 2.6 cm stone on previous computed tomography scan and the UVJ. Patient understands treatment plan will comply. She is resting comfortable and stable for discharge. Given lab work and imaging study reports to follow-up with his urology today. - Lab Data Result diagrams: 08/18/19 08:27 08/18/19 08:27 Lab Results 08/18/19 08/18/19 08/18/19 Range/Units 08:20 08:27 08:27 WBC 9.7 (3.8-10.6) k/uL RBC 5.41 (4.30-5.90) m/uL Hgb 15.9 (13.0-17.5) gm/dL Hct 46.8 (39.0-53.0) % MCV 86.5 (80.0-100.0) fL MCH 29.4 (25.0-35.0) pg MCHC 33.9 (31.0-37.0) g/dL RDW 13.4 (11.5-15.5) % Plt Count 227 (150-450) k/uL Neutrophils % 50 % Lymphocytes % 34 % Monocytes % 8 % Eosinophils % 4 % Basophils % 1 % Neutrophils # 4.8 (1.3-7.7) k/uL Lymphocytes # 3.3 (1.0-4.8) k/uL Monocytes # 0.8 (0-1.0) k/uL Eosinophils # 0.4 (0-0.7) k/uL Basophils # 0.1 (0-0.2) k/uL Sodium 139 (137-145) mmol/L Potassium 4.2 (3.5-5.1) mmol/L Chloride 103 (98-107) mmol/L Carbon Dioxide 29 (22-30) mmol/L Anion Gap 7 mmol/L BUN 13 (9-20) mg/dL Creatinine 0.81 (0.66-1.25) mg/dL Est GFR (CKD-EPI)AfAm >90 (>60 ml/min/1.73 sqM) Est GFR (CKD-EPI)NonAf >90 (>60 ml/min/1.73 sqM) Glucose 81 (74-99) mg/dL Calcium 9.2 (8.4-10.2) mg/dL Urine Color Yellow Urine Appearance Clear (Clear) Urine pH 5.5 (5.0-8.0) Ur Specific [place] 1.025 (1.001-1.035) Urine Protein 1+ H (Negative) Urine Glucose (UA) Negative (Negative) Urine Ketones Negative (Negative) Urine Blood Small H (Negative) Urine Nitrite Negative (Negative) Urine Bilirubin Negative (Negative) Urine Urobilinogen 2.0 (<2.0) mg/dL Ur Leukocyte Esterase Trace H (Negative) Urine RBC 22 H (0-5) /hpf Urine WBC 6 H (0-5) /hpf Ur Squamous Epith Cells <1 (0-4) /hpf Urine Bacteria Rare H (None) /hpf Urine Mucus Many H (None) /hpf - Radiology Data Radiology results: report reviewed Nonobstructive bowel gas pattern. No discrete colliculi seen over renal shadows, courses of ureter within the pelvis. Disposition Clinical Impression: Ureteral stone, Penile pain Disposition: HOME SELF-CARE Condition: Good Instructions (If sedation given, give patient instructions): Ureteral Stones (ED) Additional Instructions: Follow-up with urologist today. Take the previous imaging studies and lab tests with you for follow-up. Patient should return to emergency department if any alarming signs or symptoms occur. Prescriptions: Tamsulosin [Flomax] 0.4 mg PO DAILY #7 cap Ketorolac [Toradol] 10 mg PO Q6HR #12 tab Is patient prescribed a controlled substance at d/c from ED?: No Referrals: None,Stated [Primary Care Provider] - 1-2 days Time of Disposition: 10:13
[2019-08-18 08:45] LABS: Basophils # (A) 0.1 k/uL (0-0.2); Basophils % (A) 1 %; Eosinophils # (A) 0.4 k/uL (0-0.7); Eosinophils % (A) 4 %; HCT 46.8 % (39.0-53.0); HGB 15.9 gm/dL (13.0-17.5); Lymphocytes # (A) 3.3 k/uL (1.0-4.8); Lymphocytes % (A) 34 %; MCH 29.4 pg (25.0-35.0); MCHC 33.9 g/dL (31.0-37.0); MCV 86.5 fL (80.0-100.0); Mean Platelet Volume 7.8; Monocytes # (A) 0.8 k/uL (0-1.0); Monocytes % (A) 8 %; Neutrophils # (A) 4.8 k/uL (1.3-7.7); Neutrophils % (A) 50 %; Platelet Count 227 k/uL (150-450); RBC 5.41 m/uL (4.30-5.90); RDW 13.4 % (11.5-15.5); WBC 9.7 k/uL (3.8-10.6)
--- NOTE | 2019-08-18 08:54 | XR ---
EXAMINATION TYPE: XR KUB portable DATE OF EXAM: 08/18/2019 8:49 AM CLINICAL HISTORY: History of nephrolithiasis and bladder pain. TECHNIQUE: Single upright image of the abdomen is obtained. COMPARISON: None. FINDINGS: Scattered gas is seen in nondilated small bowel loops. Gas and fecal material is seen in no ndilated colon. There is no pneumoperitoneum nor abnormal calcification appreciated. The lung bases a re clear and the osseous structures are intact. IMPRESSION: Nonobstructive bowel gas pattern. No discrete calculi seen overlying the renal shadows, c ourses of the ureter or within the pelvis.
[2019-08-18 09:03] LABS: African American GFR (CKD) >90 (>60 ml/min/1.73 sqM); Anion Gap 7 mmol/L; Blood Urea Nitrogen 13 mg/dL (9-20); Calcium 9.2 mg/dL (8.4-10.2); Carbon Dioxide 29 mmol/L (22-30); Chloride 103 mmol/L (98-107); Glucose 81 mg/dL (74-99); Non-African American GFR(CKD) >90 (>60 ml/min/1.73 sqM); Potassium 4.2 mmol/L (3.5-5.1); Sodium 139 mmol/L (137-145)
[2019-08-18 09:25] LABS: Appearance,Urine Clear (Clear); Bacteria,Urine Rare /hpf; Bilirubin,Urine Negative (Negative); Blood,Urine Small (Negative); Color,Urine Yellow; Glucose,Urine (UA) Negative (Negative); Ketones,Urine Negative (Negative); Leukocyte Esterase,Urine Trace (Negative); Mucus,Urine Many /hpf; Nitrite,Urine Negative (Negative); PH, Urine 5.5 (5.0-8.0); Protein,Urine 1+ (Negative); RBC,Urine 22 /hpf (0-5); Specific Gravity,Urine 1.025 (1.001-1.035); Squamous Epithelial Cell,Urine <1 /hpf (0-4); WBC,Urine 6 /hpf (0-5)
[2019-08-18] MEDS ORDERED: ACET/COD 300 MG/30 MG STARTER PACK 6 TAB BTL PO STA (10:14)
[2019-08-18 10:37] VITALS: BP 111/75; PULSE 75; RESP 20
== END 2019-08-18 10:37 | disposition home or self-care (01) ==
LOC: EC 07:56
DX: N20.1 Calculus of ureter (principal); N48.89 Other specified disorders of penis; F41.9 Anxiety disorder, unspecified; F32.9 Major depressive disorder, single episode, unspecified; F17.200 Nicotine dependence, unspecified, uncomplicated; Z79.899 Other long term (current) drug therapy; Z88.0 Allergy status to penicillin; Z88.1 Allergy status to other antibiotic agents; Z88.2 Allergy status to sulfonamides
CPT/HCPCS: 36415; 80048; 85025; 81001; 74018; 99284; 96374; 96361 ×2; J1885

== ENCOUNTER 2019-12-03 11:02 | Emergency (ER) | payer OTHER ==
[2019-12-03 11:21] VITALS: TEMP 98.2
[2019-12-03] MEDS ORDERED: SODIUM CHLORIDE 0.9% 1,000 ML IV ONE (11:36)
--- NOTE | 2019-12-03 11:39 | ED ---
General Adult HPI - General Chief complaint: Nausea/Vomiting/Diarrhea Stated complaint: Alcohol detox Time Seen by Provider: 12/03/19 11:22 Source: patient, RN notes reviewed, old records reviewed Mode of arrival: ambulatory Limitations: no limitations - History of Present Illness Initial comments: Ryland is a 29-year-old male who presents emergency department today for evaluation with chief complaint nausea vomiting diarrhea and shakiness concern for alcohol withdrawals. He reports that he drinks approximately a fifth a day of [place]. He has been drinking this heavily for the past few months. He reports he was previously sober for 9 years up until this past year. He reports intense and then worse with Coban 19 and vomiting. Patient reports that he stopped drinking on Friday. Return going through withdrawal symptoms. - Related Data Home Medications Medication Instructions Recorded Confirmed Citalopram Hydrobromide [CeleXA] 40 mg PO DAILY 02/04/17 12/03/19 OXcarbazepine [Trileptal] 600 mg PO BID 02/04/17 12/03/19 Dextroamphetamine/Amphetamine 30 mg PO TID 12/03/19 12/03/19 [Adderall] busPIRone HCL 15 mg PO TID 12/03/19 12/03/19 Previous Rx's Medication Instructions Recorded Ondansetron Odt [Zofran Odt] 4 mg PO Q8HR PRN #12 tab 12/03/19 Allergies Allergy/AdvReac Type Severity Reaction Status Date / Time erythromycin base Allergy Unknown Verified 12/03/19 11:21 [From Pediazole] Childhood Penicillins Allergy Unknown Verified 12/03/19 11:21 Childhood sulfisoxazole Allergy Unknown Verified 12/03/19 11:21 [From Pediazole] Childhood Review of Systems ROS Statement: Those systems with pertinent positive or pertinent negative responses have been documented in the HPI. ROS Other: All systems not noted in ROS Statement are negative. Past Medical History Past Medical History: Asthma, GERD/Reflux Additional Past Medical History / Comment(s): HX OF ASTHMA (NO PROBLEMS NOW). History of Any Multi-Drug Resistant Organisms: None Reported Past Surgical History: Adenoidectomy, Hernia Repair, Tonsillectomy Additional Past Surgical History / Comment(s): web foot repair Additional Past Anesthesia/Blood Transfusion Reaction / Comment(s): NEVER RECEIVED ANESTHESIA. Past Psychological History: Anxiety, Depression Smoking Status: Current every day smoker Past Alcohol Use History: Abuse Past Drug Use History: None Reported - Past Family History Mother Family Medical History: No Reported History General Exam - General Exam Comments Initial Comments: 29 -year-old male. Alert and oriented 3. No distress. Limitations: no limitations General appearance: alert, in no apparent distress Head exam: Present: atraumatic, normocephalic, normal inspection Eye exam: Present: normal appearance ENT exam: Present: normal exam, mucous membranes moist Neck exam: Present: normal inspection. Absent: tenderness, meningismus, lymphadenopathy Respiratory exam: Present: normal lung sounds bilaterally. Absent: respiratory distress, wheezes, rales, rhonchi, stridor Cardiovascular Exam: Present: regular rate, normal rhythm, normal heart sounds. Absent: systolic murmur, diastolic murmur, rubs, gallop, clicks GI/Abdominal exam: Present: soft, normal bowel sounds. Absent: distended, tenderness, guarding, rebound, rigid Extremities exam: Present: normal inspection, full ROM, normal capillary refill. Absent: tenderness, pedal edema, joint swelling, calf tenderness Back exam: Present: normal inspection Neurological exam: Present: alert, oriented X3, CN II-XII intact Psychiatric exam: Present: normal affect, normal mood Course Vital Signs 12/03/19 12/03/19 11:16 12:25 Temperature 98.2 F Pulse Rate 79 79 Respiratory 16 18 Rate Blood Pressure 130/85 123/84 O2 Sat by Pulse 96 97 Oximetry Medical Decision Making - Medical Decision Making 29-year-old male presents emergency department today for evaluation with complaints of nausea, shakes diarrhea concerning for going through alcohol withd alcira symptoms. He has had no seizure. The same is noncontributory or days. I discussed the Patient needs to follow-up with primary care doctor as well as a period labs reviewed to session transaminitis related to alcohol use. Serum alcohol is negative at this time. Discussed this or visual prescription for Librium and Zofran. Discussed return parameters. - Lab Data Result diagrams: 12/03/19 11:55 12/03/19 11:55 Lab Results 12/03/19 12/03/19 12/03/19 Range/Units 11:55 11:55 11:55 WBC 14.3 H (3.8-10.6) k/uL RBC 5.81 (4.30-5.90) m/uL Hgb 17.7 H (13.0-17.5) gm/dL Hct 52.5 (39.0-53.0) % MCV 90.4 (80.0-100.0) fL MCH 30.5 (25.0-35.0) pg MCHC 33.8 (31.0-37.0) g/dL RDW 14.0 (11.5-15.5) % Plt Count 164 (150-450) k/uL Neutrophils % 86 % Lymphocytes % 6 % Monocytes % 5 % Eosinophils % 1 % Basophils % 0 % Neutrophils # 12.3 H (1.3-7.7) k/uL Lymphocytes # 0.9 L (1.0-4.8) k/uL Monocytes # 0.8 (0-1.0) k/uL Eosinophils # 0.1 (0-0.7) k/uL Basophils # 0.1 (0-0.2) k/uL PT 10.2 (9.0-12.0) sec INR 1.0 (<1.2) Sodium 135 L (137-145) mmol/L Potassium 4.1 (3.5-5.1) mmol/L Chloride 102 (98-107) mmol/L Carbon Dioxide 18 L (22-30) mmol/L Anion Gap 15 mmol/L BUN 15 (9-20) mg/dL Creatinine 0.88 (0.66-1.25) mg/dL Est GFR (CKD-EPI)AfAm >90 (>60 ml/min/1.73 sqM) Est GFR (CKD-EPI)NonAf >90 (>60 ml/min/1.73 sqM) Glucose 88 (74-99) mg/dL Calcium 9.3 (8.4-10.2) mg/dL Magnesium 1.9 (1.6-2.3) mg/dL Total Bilirubin 0.9 (0.2-1.3) mg/dL AST 76 H (17-59) U/L ALT 85 H (4-49) U/L Alkaline Phosphatase 127 H (38-126) U/L Total Protein 8.4 H (6.3-8.2) g/dL Albumin 4.9 (3.5-5.0) g/dL Lipase 71 (23-300) U/L Urine Color Urine Appearance (Clear) Urine pH (5.0-8.0) Ur Specific Hyndman (1.001-1.035) Urine Protein (Negative) Urine Glucose (UA) (Negative) Urine Ketones (Negative) Urine Blood (Negative) Urine Nitrite (Negative) Urine Bilirubin (Negative) Urine Urobilinogen (<2.0) mg/dL Ur Leukocyte Esterase (Negative) Urine RBC (0-5) /hpf Urine WBC (0-5) /hpf Ur Squamous Epith Cells (0-4) /hpf Urine Mucus (None) /hpf Urine Opiates Screen (NotDetected) Ur Oxycodone Screen (NotDetected) Urine Methadone Screen (NotDetected) Ur Propoxyphene Screen (NotDetected) Ur Barbiturates Screen (NotDetected) U Tricyclic Antidepress (NotDetected) Ur Phencyclidine Scrn (NotDetected) Ur Amphetamines Screen (NotDetected) U Methamphetamines Scrn (NotDetected) U Benzodiazepines Scrn (NotDetected) Urine Cocaine Screen (NotDetected) U Marijuana (THC) Screen (NotDetected) Serum Alcohol <10 mg/dL 12/03/19 Range/Units 12:20 WBC (3.8-10.6) k/uL RBC (4.30-5.90) m/uL Hgb (13.0-17.5) gm/dL Hct (39.0-53.0) % MCV (80.0-100.0) fL MCH (25.0-35.0) pg MCHC (31.0-37.0) g/dL RDW (11.5-15.5) % Plt Count (150-450) k/uL Neutrophils % % Lymphocytes % % Monocytes % % Eosinophils % % Basophils % % Neutrophils # (1.3-7.7) k/uL Lymphocytes # (1.0-4.8) k/uL Monocytes # (0-1.0) k/uL Eosinophils # (0-0.7) k/uL Basophils # (0-0.2) k/uL PT (9.0-12.0) sec INR (<1.2) Sodium (137-145) mmol/L Potassium (3.5-5.1) mmol/L Chloride (98-107) mmol/L Carbon Dioxide (22-30) mmol/L Anion Gap mmol/L BUN (9-20) mg/dL Creatinine (0.66-1.25) mg/dL Est GFR (CKD-EPI)AfAm (>60 ml/min/1.73 sqM) Est GFR (CKD-EPI)NonAf (>60 ml/min/1.73 sqM) Glucose (74-99) mg/dL Calcium (8.4-10.2) mg/dL Magnesium (1.6-2.3) mg/dL Total Bilirubin (0.2-1.3) mg/dL AST (17-59) U/L ALT (4-49) U/L Alkaline Phosphatase (38-126) U/L Total Protein (6.3-8.2) g/dL Albumin (3.5-5.0) g/dL Lipase (23-300) U/L Urine Color Yellow Urine Appearance Clear (Clear) Urine pH 5.5 (5.0-8.0) Ur Specific [place] 1.025 (1.001-1.035) Urine Protein 1+ H (Negative) Urine Glucose (UA) Negative (Negative) Urine Ketones 2+ H (Negative) Urine Blood Negative (Negative) Urine Nitrite Negative (Negative) Urine Bilirubin Negative (Negative) Urine Urobilinogen <2.0 (<2.0) mg/dL Ur Leukocyte Esterase Negative (Negative) Urine RBC 1 (0-5) /hpf Urine WBC 2 (0-5) /hpf Ur Squamous Epith Cells <1 (0-4) /hpf Urine Mucus Few H (None) /hpf Urine Opiates Screen Not Detected (NotDetected) Ur Oxycodone Screen Not Detected (NotDetected) Urine Methadone Screen Not Detected (NotDetected) Ur Propoxyphene Screen Not Detected (NotDetected) Ur Barbiturates Screen Not Detected (NotDetected) U Tricyclic Antidepress Not Detected (NotDetected) Ur Phencyclidine Scrn Not Detected (NotDetected) Ur Amphetamines Screen Not Detected (NotDetected) U Methamphetamines Scrn Not Detected (NotDetected) U Benzodiazepines Scrn Not Detected (NotDetected) Urine Cocaine Screen Not Detected (NotDetected) U Marijuana (THC) Screen Detected H (NotDetected) Serum Alcohol mg/dL \ Disposition Clinical Impression: ETOH abuse, Transaminitis, Withdrawal symptoms, alcohol Disposition: HOME SELF-CARE Condition: Good Instructions (If sedation given, give patient instructions): Abuse of Alcohol (ED) Additional Instructions: Please use medication as discussed. Please follow up with family doctor if symptoms have not improved over the next two days. Please return to the emergency room if your symptoms increase or worsen or for any other concerns. Follow-up with AA services or rehab facility Prescriptions: Ondansetron Odt [Zofran Odt] 4 mg PO Q8HR PRN #12 tab PRN Reason: Is patient prescribed a controlled substance at d/c from ED?: No Referrals: None,Stated [Primary Care Provider] - 1-2 days Aliya Matos MD [REFERRING] - 1-2 days Time of Disposition: 13:16
[2019-12-03] MEDS ORDERED: SODIUM CHLORIDE 0.9% 1,000 ML with MVI, ADULT NO.4 WITH VIT K 10 ML, THIAMINE 100 MG, F... IV ONE ×4 (12:00)
[2019-12-03 12:15] LABS: Basophils # (A) 0.1 k/uL (0-0.2); Basophils % (A) 0 %; Eosinophils # (A) 0.1 k/uL (0-0.7); Eosinophils % (A) 1 %; HCT 52.5 % (39.0-53.0); HGB 17.7 gm/dL (13.0-17.5); Lymphocytes # (A) 0.9 k/uL (1.0-4.8); Lymphocytes % (A) 6 %; MCH 30.5 pg (25.0-35.0); MCHC 33.8 g/dL (31.0-37.0); MCV 90.4 fL (80.0-100.0); Mean Platelet Volume 9.4; Monocytes # (A) 0.8 k/uL (0-1.0); Monocytes % (A) 5 %; Neutrophils # (A) 12.3 k/uL (1.3-7.7); Neutrophils % (A) 86 %; Platelet Count 164 k/uL (150-450); RBC 5.81 m/uL (4.30-5.90); WBC 14.3 k/uL (3.8-10.6)
[2019-12-03] MEDS ORDERED: ONDANSETRON 4 MG/2 ML VIAL IVP STA (12:22)
[2019-12-03] MEDS ORDERED: PANTOPRAZOLE 40 MG/10 ML VIAL IVP ONE (12:22)
[2019-12-03 12:32] LABS: Prothrombin Time 10.2 sec (9.0-12.0)
[2019-12-03 12:36] LABS: ALT 85 U/L (4-49); AST 76 U/L (17-59); African American GFR (CKD) >90 (>60 ml/min/1.73 sqM); Albumin 4.9 g/dL (3.5-5.0); Alcohol <10 mg/dL; Alkaline Phosphatase 127 U/L (38-126); Anion Gap 15 mmol/L; Blood Urea Nitrogen 15 mg/dL (9-20); Calcium 9.3 mg/dL (8.4-10.2); Carbon Dioxide 18 mmol/L (22-30); Chloride 102 mmol/L (98-107); Glucose 88 mg/dL (74-99); Magnesium 1.9 mg/dL (1.6-2.3); Non-African American GFR(CKD) >90 (>60 ml/min/1.73 sqM); Potassium 4.1 mmol/L (3.5-5.1); Sodium 135 mmol/L (137-145); Total Bilirubin 0.9 mg/dL (0.2-1.3); Total Protein 8.4 g/dL (6.3-8.2)
[2019-12-03 12:48] LABS: Appearance,Urine Clear (Clear); Bilirubin,Urine Negative (Negative); Blood,Urine Negative (Negative); Color,Urine Yellow; Glucose,Urine (UA) Negative (Negative); Ketones,Urine 2+ (Negative); Leukocyte Esterase,Urine Negative (Negative); Mucus,Urine Few /hpf; Nitrite,Urine Negative (Negative); PH, Urine 5.5 (5.0-8.0); Protein,Urine 1+ (Negative); RBC,Urine 1 /hpf (0-5); Specific Gravity,Urine 1.025 (1.001-1.035); Squamous Epithelial Cell,Urine <1 /hpf (0-4); Urobilinogen,Urine <2.0 mg/dL (<2.0); WBC,Urine 2 /hpf (0-5)
[2019-12-03 12:56] LABS: Amphetamine Screen,Urine Not Detected (NotDetected); Barbiturate Screen,Urine Not Detected (NotDetected); Benzodiazepines Screen,Urine Not Detected (NotDetected); Cocaine Screen,Urine Not Detected (NotDetected); Methadone Screen, Urine Not Detected (NotDetected); Opiate Screen,Urine Not Detected (NotDetected); Oxycodone Screen, Urine Not Detected (NotDetected); Phencyclidine Screen,Urine Not Detected (NotDetected); Tricyclic Antidepressant,Urine Not Detected (NotDetected); Urn Cannabinoid Scrn Detected (NotDetected)
[2019-12-03 14:22] VITALS: BP 122/70; PULSE 72; RESP 16
== END 2019-12-03 14:10 | disposition home or self-care (01) ==
LOC: EC 11:02
DX: F10.239 Alcohol dependence with withdrawal, unspecified (principal); R74.0 Nonspecific elevation of levels of transaminase and lactic acid dehydrogenase [LDH]; R19.7 Diarrhea, unspecified; F17.200 Nicotine dependence, unspecified, uncomplicated; F41.9 Anxiety disorder, unspecified; F32.9 Major depressive disorder, single episode, unspecified; Z79.899 Other long term (current) drug therapy; Z88.0 Allergy status to penicillin; Z88.1 Allergy status to other antibiotic agents; Z88.2 Allergy status to sulfonamides
CPT/HCPCS: 36415; 80053; 83690; 83735; 85025; 85610; 81001; 80306; 99284; 96374; 96361 ×2; G0480; J3411; C9113; 80320

== ENCOUNTER 2020-03-23 03:40 | Emergency (ER) | payer OTHER ==
[2020-03-23 03:48] VITALS: BP 138/93; PULSE 85; RESP 17; TEMP 98
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
[2020-03-23] MEDS ORDERED: IBUPROFEN 600 MG TAB PO STA (04:07)
[2020-03-23] MEDS ORDERED: Acetaminophen-Codeine 300-30mg TAB PO STA (04:07)
[2020-03-23] MEDS ORDERED: ACET/COD 300 MG/30 MG STARTER PACK 6 TAB BTL PO STA (04:07)
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
== END 2020-03-23 05:44 | disposition home or self-care (01) ==
LOC: EC 03:40
DX: S09.93XA Unspecified injury of face, initial encounter (principal); F41.9 Anxiety disorder, unspecified; F32.9 Major depressive disorder, single episode, unspecified; Z79.899 Other long term (current) drug therapy; Z88.0 Allergy status to penicillin; Z88.1 Allergy status to other antibiotic agents; Z88.2 Allergy status to sulfonamides; Y04.0XXA Assault by unarmed brawl or fight, initial encounter
CPT/HCPCS: 70450; 70486; 99285

== ENCOUNTER 2020-04-02 20:25 | Emergency (ER) | payer OTHER ==
[2020-04-02 20:31] VITALS: BP 117/80; PULSE 83; RESP 18; TEMP 98.1
[2020-04-02] MEDS ORDERED: KETOROLAC 15 MG/ML 1 ML VIAL IM STA (20:39)
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
--- NOTE | 2020-04-02 20:56 | XR ---
EXAMINATION TYPE: XR knee 4V LT DATE OF EXAM: 04/02/2020 COMPARISON: 09/23/2013 HISTORY: Pain TECHNIQUE: 3 views FINDINGS: I see no fracture nor dislocation. Joint spaces are normal. There is soft tissue swelling a nterior to the patella. IMPRESSION: Anterior soft tissue swelling could relate to patella bursitis. No fracture seen.
[2020-04-02] MEDS ORDERED: CEPHALEXIN 500MG STARTER PACK 4 CAP BTL PO STA (21:11)
[2020-04-02] MEDS ORDERED: ACET/COD 300 MG/30 MG STARTER PACK 6 TAB BTL PO STA (21:11)
[2020-04-02] MEDS ORDERED: SULFAMETH-TMP DS STARTER PACK 2 TAB BTL PO STA (21:11)
[2020-04-02] MEDS ORDERED: BACITRACIN OINT 1 EACH PACKET TOPICAL ONE (21:14)
== END 2020-04-02 21:29 | disposition home or self-care (01) ==
LOC: EC 20:25
DX: S80.212A Abrasion, left knee, initial encounter (principal); L03.116 Cellulitis of left lower limb; F41.9 Anxiety disorder, unspecified; F32.9 Major depressive disorder, single episode, unspecified; F17.200 Nicotine dependence, unspecified, uncomplicated; Z79.899 Other long term (current) drug therapy; Z88.0 Allergy status to penicillin; Z88.1 Allergy status to other antibiotic agents; Z88.2 Allergy status to sulfonamides; W01.0XXA Fall on same level from slipping, tripping and stumbling without subsequent striking against object, initial encounter
CPT/HCPCS: 73564; 99283; 96372; J1885

== ENCOUNTER 2020-10-26 07:41 | Emergency (ER) | payer OTHER ==
[2020-10-26 07:47] VITALS: BP 128/83; PULSE 64; RESP 18; TEMP 97.6
[2020-10-26] MEDS ORDERED: ACET/COD 300 MG/30 MG STARTER PACK 6 TAB BTL PO STA (07:53)
--- NOTE | 2020-10-26 07:55 | ED ---
ENT HPI - General Chief complaint: Dental/Oral Stated complaint: Mouth pain Time Seen by Provider: 10/26/20 07:47 Source: patient, RN notes reviewed Mode of arrival: ambulatory Limitations: no limitations - History of Present Illness Initial comments: 30-year-old male presents emergency Department with chief complaint of left- sided dental pain. Patient states hurts in the upper and lower but states she has a bad tooth on the lower aspect. No fevers or chills increasing pain last 3 days he states his an appointment next week with his dentist. Patient denies any difficulty swallowing no other complaints. - Related Data Home Medications Medication Instructions Recorded Confirmed Citalopram Hydrobromide [CeleXA] 40 mg PO DAILY 02/04/17 12/03/19 OXcarbazepine [Trileptal] 600 mg PO BID 02/04/17 12/03/19 Dextroamphetamine/Amphetamine 30 mg PO TID 12/03/19 12/03/19 [Adderall] busPIRone HCL 15 mg PO TID 12/03/19 12/03/19 Previous Rx's Medication Instructions Recorded Diphenox-Atrop 2.5-0.025 mg 1 tab PO TID 3 Days #12 tablet 12/03/19 [Lomotil] Ondansetron Odt [Zofran Odt] 4 mg PO Q8HR PRN #12 tab 12/03/19 Cephalexin [Keflex] 500 mg PO Q6HR 10 Days #40 cap 04/02/20 Ibuprofen [Motrin] 600 mg PO Q6HR PRN #20 tab 04/02/20 Sulfamethox-Tmp 800-160Mg [Bactrim 1 tab PO Q12HR #20 tab 04/02/20 DS 800-160 mg] Clindamycin HCl 300 mg PO Q6HR #40 cap 10/26/20 Ibuprofen [Motrin] 600 mg PO Q8HR PRN #20 tab 10/26/20 Allergies Allergy/AdvReac Type Severity Reaction Status Date / Time erythromycin base Allergy Unknown Verified 10/26/20 07:47 [From Pediazole] Childhood Penicillins Allergy Unknown Verified 10/26/20 07:47 Childhood sulfisoxazole Allergy Unknown Verified 10/26/20 07:47 [From Pediazole] Childhood Review of Systems ROS Statement: Those systems with pertinent positive or pertinent negative responses have been documented in the HPI. ROS Other: All systems not noted in ROS Statement are negative. Past Medical History Past Medical History: Asthma, GERD/Reflux Additional Past Medical History / Comment(s): HX OF ASTHMA (NO PROBLEMS NOW). History of Any Multi-Drug Resistant Organisms: None Reported Past Surgical History: Adenoidectomy, Hernia Repair, Tonsillectomy Additional Past Surgical History / Comment(s): web foot repair Additional Past Anesthesia/Blood Transfusion Reaction / Comment(s): NEVER RECEIVED ANESTHESIA. Past Psychological History: Anxiety, Depression Smoking Status: Current every day smoker Past Alcohol Use History: Abuse Past Drug Use History: None Reported - Past Family History Mother Family Medical History: No Reported History General Exam Limitations: no limitations General appearance: alert, in no apparent distress Head exam: Present: atraumatic, normocephalic, normal inspection Eye exam: Present: normal appearance, PERRL, EOMI. Absent: scleral icterus, conjunctival injection, periorbital swelling ENT exam: Present: mucous membranes moist, TM's normal bilaterally, normal external ear exam. Absent: normal exam, normal oropharynx (Dental caries noted, dental erosion left lower no drainable abscesses noted) Neck exam: Present: normal inspection, full ROM. Absent: tenderness, meningismus, lymphadenopathy Respiratory exam: Present: normal lung sounds bilaterally. Absent: respiratory distress, wheezes, rales, rhonchi, stridor Cardiovascular Exam: Present: regular rate, normal rhythm, normal heart sounds. Absent: systolic murmur, diastolic murmur, rubs, gallop, clicks Course Vital Signs 10/26/20 07:44 Temperature 97.6 F Pulse Rate 64 Respiratory 18 Rate Blood Pressure 128/83 O2 Sat by Pulse 100 Oximetry Medical Decision Making - Medical Decision Making 30-year-old presented for dental pain. Patient has a dental infection will be placed on antibiotics and will follow-up with dentist next week. Disposition Clinical Impression: Dental caries, Toothache Disposition: HOME SELF-CARE Condition: Stable Instructions (If sedation given, give patient instructions): Toothache (ED) Additional Instructions: Please return to the Emergency Department if symptoms worsen or any other concerns. Prescriptions: Clindamycin HCl 300 mg PO Q6HR #40 cap Ibuprofen [Motrin] 600 mg PO Q8HR PRN #20 tab PRN Reason: Pain Is patient prescribed a controlled substance at d/c from ED?: No Referrals: None,Stated [Primary Care Provider] - 1-2 days Time of Disposition: 07:54
== END 2020-10-26 08:05 | disposition home or self-care (01) ==
LOC: EC 07:41
DX: K02.9 Dental caries, unspecified (principal); K03.2 Erosion of teeth; K21.9 Gastro-esophageal reflux disease without esophagitis; J45.909 Unspecified asthma, uncomplicated; F32.9 Major depressive disorder, single episode, unspecified; F41.9 Anxiety disorder, unspecified; F17.200 Nicotine dependence, unspecified, uncomplicated; Z79.1 Long term (current) use of non-steroidal anti-inflammatories (NSAID); Z88.0 Allergy status to penicillin
CPT/HCPCS: 99282

== ENCOUNTER 2020-12-26 20:45 | Emergency (ER) | payer OTHER ==
[2020-12-26 21:03] VITALS: BP 141/88; PULSE 72; RESP 20; TEMP 98.7
[2020-12-26] MEDS ORDERED: KETOROLAC 15 MG/ML 1 ML VIAL IM STA (21:33)
[2020-12-26] MEDS ORDERED: HYDROcodone/APAP 5-325MG 1 EACH TAB PO STA (21:33)
--- NOTE | 2020-12-26 21:34 | ED ---
ENT HPI - General Chief complaint: Dental/Oral Stated complaint: Oral pain Time Seen by Provider: 12/26/20 21:24 Source: patient Mode of arrival: ambulatory Limitations: no limitations - History of Present Illness Initial comments: 30-year-old male patient presents for evaluation of left lower dental pain that started several days ago. Patient has been taking clindamycin. States his been taking Avapro for without relief. States the pain is getting worse. Denies fever or chills but denies any trismus or difficulty swallowing. Denies any facial swelling. Does have a dentist appointment on January 14. - Related Data Home Medications Medication Instructions Recorded Confirmed Citalopram Hydrobromide [CeleXA] 40 mg PO DAILY 02/04/17 12/03/19 OXcarbazepine [Trileptal] 600 mg PO BID 02/04/17 12/03/19 Dextroamphetamine/Amphetamine 30 mg PO TID 12/03/19 12/03/19 [Adderall] busPIRone HCL 15 mg PO TID 12/03/19 12/03/19 Previous Rx's Medication Instructions Recorded Diphenox-Atrop 2.5-0.025 mg 1 tab PO TID 3 Days #12 tablet 12/03/19 [Lomotil] Ondansetron Odt [Zofran Odt] 4 mg PO Q8HR PRN #12 tab 12/03/19 Cephalexin [Keflex] 500 mg PO Q6HR 10 Days #40 cap 04/02/20 Ibuprofen [Motrin] 600 mg PO Q6HR PRN #20 tab 04/02/20 Sulfamethox-Tmp 800-160Mg [Bactrim 1 tab PO Q12HR #20 tab 04/02/20 DS 800-160 mg] Clindamycin HCl 300 mg PO Q6HR #40 cap 10/26/20 Ibuprofen [Motrin] 600 mg PO Q8HR PRN #20 tab 10/26/20 HYDROcodone/APAP 5-325MG [[place] 5] 1 each PO Q6HR PRN #12 tab 12/26/20 Ketorolac [Toradol] 10 mg PO Q6HR #12 tab 12/26/20 Allergies Allergy/AdvReac Type Severity Reaction Status Date / Time erythromycin base Allergy Unknown Verified 12/26/20 21:04 [From Pediazole] Childhood Penicillins Allergy Unknown Verified 12/26/20 21:04 Childhood sulfisoxazole Allergy Unknown Verified 12/26/20 21:04 [From Pediazole] Childhood Review of Systems ROS Statement: Those systems with pertinent positive or pertinent negative responses have been documented in the HPI. ROS Other: All systems not noted in ROS Statement are negative. Past Medical History Past Medical History: Asthma, GERD/Reflux Additional Past Medical History / Comment(s): HX OF ASTHMA (NO PROBLEMS NOW). History of Any Multi-Drug Resistant Organisms: None Reported Past Surgical History: Adenoidectomy, Hernia Repair, Tonsillectomy Additional Past Surgical History / Comment(s): web foot repair Additional Past Anesthesia/Blood Transfusion Reaction / Comment(s): NEVER RECEIVED ANESTHESIA. Past Psychological History: Anxiety, Depression Smoking Status: Current every day smoker Past Alcohol Use History: Abuse Past Drug Use History: None Reported - Past Family History Mother Family Medical History: No Reported History General Exam Limitations: no limitations General appearance: alert, in no apparent distress ENT exam: Present: mucous membranes moist, other (Poor dentition, multiple broken teeth, there is fractured tooth #17. Surrounding gingival erythema. No evidence for drainable abscess.) Cardiovascular Exam: Present: regular rate, normal rhythm, normal heart sounds. Absent: systolic murmur, diastolic murmur, rubs, gallop, clicks GI/Abdominal exam: Present: soft, normal bowel sounds. Absent: distended, tenderness, guarding, rebound, rigid Neurological exam: Present: alert, oriented X3, CN II-XII intact Psychiatric exam: Present: normal affect, normal mood Skin exam: Present: warm, dry, intact, normal color. Absent: rash Course Vital Signs 12/26/20 21:01 Temperature 98.7 F Pulse Rate 72 Respiratory 20 Rate Blood Pressure 141/88 O2 Sat by Pulse 97 Oximetry Medical Decision Making - Medical Decision Making 30-year-old male patient presents for evaluation of left lower dental pain. Physical examination did reveal fractured tooth #17. Surrounding gingival erythema, no evidence for drainable abscess. He is currently taking clindamycin which we will continue. He is given prescription for pain control. He is instructed to follow-up with dentistry as soon as possible, recommended he call to see if there is any cancellation appointments. Return parameters were discussed in detail. He verbalizes understanding and agrees this plan. My attending is Dr. Goodson. Disposition Clinical Impression: Pain, dental Disposition: HOME SELF-CARE Condition: Good Instructions (If sedation given, give patient instructions): Dental Abscess (ED), Toothache (ED) Additional Instructions: Take medications as directed. Follow-up with the primary care physician for recheck in 1-2 days. Return for any new, worsening, or concerning symptoms. Prescriptions: HYDROcodone/APAP 5-325MG [[place] 5] 1 each PO Q6HR PRN #12 tab PRN Reason: Pain Ketorolac [Toradol] 10 mg PO Q6HR #12 tab Is patient prescribed a controlled substance at d/c from ED?: Yes When asked, does pt state using other controlled substances?: No If prescribed controlled substance>3 days was MAPS reviewed?: Prescribed <3 Days If opioid is for acute pain is fill amount 7 days or less?: Yes If Rx opioid, was Start Talking consent form obtained?: Yes Referrals: None,Stated [Primary Care Provider] - 1-2 days Time of Disposition: 21:34
== END 2020-12-26 21:48 | disposition home or self-care (01) ==
LOC: EC 20:45
DX: K03.81 Cracked tooth (principal); F17.200 Nicotine dependence, unspecified, uncomplicated; J45.909 Unspecified asthma, uncomplicated; Z88.0 Allergy status to penicillin; Z88.1 Allergy status to other antibiotic agents; Z88.2 Allergy status to sulfonamides
CPT/HCPCS: 96372; 99283

== ENCOUNTER 2021-03-20 09:34 | Emergency (ER) | payer OTHER ==
[2021-03-20 09:39] VITALS: TEMP 97.8
[2021-03-20] MEDS ORDERED: KETOROLAC 15 MG/ML 1 ML VIAL IM STA (10:04)
--- NOTE | 2021-03-20 10:56 | XR ---
EXAMINATION TYPE: XR lumbar spine 2 or 3V DATE OF EXAM: 03/20/2021 CLINICAL HISTORY: Low back pain after work injury TECHNIQUE: Frontal and lateral images of the lumbar spine are obtained. COMPARISON: Lumbar spine x-ray November 26, 2016 FINDINGS: There are 5 lumbar type vertebral bodies redemonstrated. The lumbar spine shows stable an d straightened alignment without evidence of acute fracture or dislocation. Vertebral body heights an d disk space heights remain within normal limits. The overlying soft tissue appears unremarkable. IMPRESSION: No acute fracture or dislocation is seen in the lumbar spine. No significant change from prior.
--- NOTE | 2021-03-20 11:03 | ED ---
Back Pain HPI - General Chief Complaint: Back Pain/Injury Stated Complaint: back pain Time Seen by Provider: 03/20/21 10:00 Source: patient, RN notes reviewed Limitations: no limitations - History of Present Illness Initial Comments: Patient is a 30-year-old male that presents to emergency department complaining of low back pain with no radiation. He notes that he was helping lift some heavy objects at work helping out several days ago. He notes that since then his back has been tight and tender. He notes his pain is approximately 5-6 out of 10 with no relief. He denied any saddle anesthesia, bladder or bowel incontinence or retention. He notes he does have a history of back pain. He notes that he is able to ambulate without difficulty. Patient was otherwise well-appearing 30-year-old male no apparent distress or pain. He denied any chest pain shortness of breath headache nausea vomiting diarrhea constipation fever fatigue chills. - Related Data Home Medications Medication Instructions Recorded Confirmed Citalopram Hydrobromide [CeleXA] 40 mg PO DAILY 02/04/17 12/03/19 OXcarbazepine [Trileptal] 600 mg PO BID 02/04/17 12/03/19 Dextroamphetamine/Amphetamine 30 mg PO TID 12/03/19 12/03/19 [Adderall] busPIRone HCL 15 mg PO TID 12/03/19 12/03/19 Previous Rx's Medication Instructions Recorded Diphenox-Atrop 2.5-0.025 mg 1 tab PO TID 3 Days #12 tablet 12/03/19 [Lomotil] Ondansetron Odt [Zofran Odt] 4 mg PO Q8HR PRN #12 tab 12/03/19 Cephalexin [Keflex] 500 mg PO Q6HR 10 Days #40 cap 04/02/20 Ibuprofen [Motrin] 600 mg PO Q6HR PRN #20 tab 04/02/20 Sulfamethox-Tmp 800-160Mg [Bactrim 1 tab PO Q12HR #20 tab 04/02/20 DS 800-160 mg] Clindamycin HCl 300 mg PO Q6HR #40 cap 10/26/20 Ibuprofen [Motrin] 600 mg PO Q8HR PRN #20 tab 10/26/20 HYDROcodone/APAP 5-325MG [[place] 5] 1 each PO Q6HR PRN #12 tab 07/20/21 Ketorolac [Toradol] 10 mg PO Q6HR #12 tab 12/26/20 predniSONE 50 mg PO DAILY #5 tab 03/20/21 Allergies Allergy/AdvReac Type Severity Reaction Status Date / Time erythromycin base Allergy Unknown Verified 03/20/21 09:36 [From Pediazole] Childhood Penicillins Allergy Unknown Verified 03/20/21 09:36 Childhood sulfisoxazole Allergy Unknown Verified 03/20/21 09:36 [From Pediazole] Childhood Review of Systems ROS Statement: Those systems with pertinent positive or pertinent negative responses have been documented in the HPI. ROS Other: All systems not noted in ROS Statement are negative. Past Medical History Past Medical History: Asthma, GERD/Reflux Additional Past Medical History / Comment(s): HX OF ASTHMA History of Any Multi-Drug Resistant Organisms: None Reported Past Surgical History: Adenoidectomy, Hernia Repair, Tonsillectomy Additional Past Surgical History / Comment(s): web foot repair Additional Past Anesthesia/Blood Transfusion Reaction / Comment(s): NEVER RECEIVED ANESTHESIA. Past Psychological History: Anxiety, Depression Smoking Status: Current every day smoker Past Alcohol Use History: Abuse Past Drug Use History: None Reported - Past Family History Mother Family Medical History: No Reported History General Exam Limitations: no limitations General appearance: alert, in no apparent distress, obese Head exam: Present: atraumatic, normocephalic, normal inspection Eye exam: Present: normal appearance, PERRL, EOMI. Absent: scleral icterus, conjunctival injection, periorbital swelling ENT exam: Present: normal exam, mucous membranes moist Neck exam: Present: normal inspection Respiratory exam: Present: normal lung sounds bilaterally. Absent: respiratory distress, wheezes, rales, rhonchi, stridor Cardiovascular Exam: Present: regular rate, normal rhythm, normal heart sounds. Absent: systolic murmur, diastolic murmur, rubs, gallop, clicks Extremities exam: Present: normal inspection, full ROM, normal capillary refill. Absent: tenderness, pedal edema, joint swelling, calf tenderness Back exam: Present: normal inspection, paraspinal tenderness (Low back bilaterally) Neurological exam: Present: alert, oriented X3 Psychiatric exam: Present: normal affect, normal mood Skin exam: Present: warm, dry, intact, normal color. Absent: rash Course Vital Signs 03/20/21 09:36 Temperature 97.8 F Pulse Rate 92 Respiratory 16 Rate Blood Pressure 122/89 O2 Sat by Pulse 97 Oximetry Medical Decision Making - Medical Decision Making 30-year-old male complaining of low back pain after lifting heavy objects sev eral days ago. Physical exam demonstrates no saddle anesthesia bladder or bowel incontinence or retention just minimal tenderness paraspinal muscles. 15 mg of Toradol, X-ray lumbar spine ordered. X-rays negative for any acute fractures dislocations. No change from prior. Patient most likely experiencing lumbar strain. Case discussed with Dr. Matthews, patient discharge home with follow-up primary car e. - Radiology Data Radiology results: report reviewed, image reviewed X-ray lumbar spine: No acute fracture dislocation seen lumbar spine. No significant change from prior Disposition Clinical Impression: Strain of lumbar region Disposition: HOME SELF-CARE Condition: Stable Instructions (If sedation given, give patient instructions): Acute Low Back Pain (ED) Additional Instructions: Please return to the Emergency Department if symptoms worsen or any other concerns. Follow-up with primary care 1-2 days. Take prednisone as prescribed. Prescriptions: predniSONE 50 mg PO DAILY #5 tab Is patient prescribed a controlled substance at d/c from ED?: No Referrals: None,Stated [Primary Care Provider] - 1-2 days Time of Disposition: 11:23
[2021-03-20 11:45] VITALS: BP 128/78; PULSE 89; RESP 20
== END 2021-03-20 11:45 | disposition home or self-care (01) ==
LOC: EC 09:34
DX: S39.012A Strain of muscle, fascia and tendon of lower back, initial encounter (principal); F17.200 Nicotine dependence, unspecified, uncomplicated; J45.909 Unspecified asthma, uncomplicated; Z88.0 Allergy status to penicillin; Z88.1 Allergy status to other antibiotic agents; X50.0XXA Overexertion from strenuous movement or load, initial encounter; Y99.0 Civilian activity done for income or pay
CPT/HCPCS: 99283 ×2; 96372 ×2; 72100; J1885

== ENCOUNTER 2021-04-18 08:19 | Emergency (ER) | payer OTHER ==
[2021-04-18 08:24] VITALS: BP 129/89; PULSE 80; RESP 18; TEMP 97.7
[2021-04-18] MEDS ORDERED: methylPREDNISolone SOD SUCCI 125 MG/2 ML VIAL IM ONE (08:42)
[2021-04-18] MEDS ORDERED: Acetaminophen-Codeine 300-30mg TAB PO STA (08:42)
--- NOTE | 2021-04-18 09:07 | ED ---
Back Pain HPI - General Chief Complaint: Back Pain/Injury Stated Complaint: back pain Time Seen by Provider: 04/18/21 08:29 Source: patient, RN notes reviewed Limitations: no limitations - History of Present Illness Initial Comments: Patient is a 30-year-old male that presents to emergency room with low back pain with radicular symptoms on the right leg. Patientis been having this problem for the past month. He denied any saddle anesthesia bladder bowel incontinence or retention. He denied any injury or trauma. He was otherwise well-appearing. He notes that he's had the same pain in the past just worse over the past few days. Patient notes that he would like a work note for today as he had difficulty getting out of bed. He was otherwise well-appearing. He did bring a back brace with him and asked if it was okay use. Patient denied any chest pain shortness of breath headache nausea vomiting diarrhea constipation fever fatigue chills. - Related Data Home Medications Medication Instructions Recorded Confirmed Citalopram Hydrobromide [CeleXA] 40 mg PO DAILY 02/04/17 12/03/19 OXcarbazepine [Trileptal] 600 mg PO BID 02/04/17 12/03/19 Dextroamphetamine/Amphetamine 30 mg PO TID 12/03/19 12/03/19 [Adderall] busPIRone HCL 15 mg PO TID 12/03/19 12/03/19 Previous Rx's Medication Instructions Recorded Diphenox-Atrop 2.5-0.025 mg 1 tab PO TID 3 Days #12 tablet 12/03/19 [Lomotil] Ondansetron Odt [Zofran Odt] 4 mg PO Q8HR PRN #12 tab 12/03/19 Cephalexin [Keflex] 500 mg PO Q6HR 10 Days #40 cap 04/02/20 Ibuprofen [Motrin] 600 mg PO Q6HR PRN #20 tab 04/02/20 Sulfamethox-Tmp 800-160Mg [Bactrim 1 tab PO Q12HR #20 tab 04/02/20 DS 800-160 mg] Clindamycin HCl 300 mg PO Q6HR #40 cap 10/26/20 Ibuprofen [Motrin] 600 mg PO Q8HR PRN #20 tab 10/26/20 HYDROcodone/APAP 5-325MG [[place] 5] 1 each PO Q6HR PRN #12 tab 12/26/20 Ketorolac [Toradol] 10 mg PO Q6HR #12 tab 12/26/20 predniSONE 50 mg PO DAILY #5 tab 03/20/21 predniSONE 50 mg PO DAILY #5 tab 04/18/21 Allergies Allergy/AdvReac Type Severity Reaction Status Date / Time erythromycin base Allergy Unknown Verified 04/18/21 08:23 [From Pediazole] Childhood Penicillins Allergy Unknown Verified 04/18/21 08:23 Childhood sulfisoxazole Allergy Unknown Verified 04/18/21 08:23 [From Pediazole] Childhood Review of Systems ROS Statement: Those systems with pertinent positive or pertinent negative responses have been documented in the HPI. ROS Other: All systems not noted in ROS Statement are negative. Past Medical History Past Medical History: Asthma, GERD/Reflux Additional Past Medical History / Comment(s): HX OF ASTHMA History of Any Multi-Drug Resistant Organisms: None Reported Past Surgical History: Adenoidectomy, Hernia Repair, Tonsillectomy Additional Past Surgical History / Comment(s): web foot repair Additional Past Anesthesia/Blood Transfusion Reaction / Comment(s): NEVER RECEIVED ANESTHESIA. Past Psychological History: Anxiety, Depression Smoking Status: Current every day smoker Past Alcohol Use History: Abuse Past Drug Use History: None Reported - Past Family History Mother Family Medical History: No Reported History General Exam Limitations: no limitations General appearance: alert, in no apparent distress Head exam: Present: atraumatic, normocephalic, normal inspection Eye exam: Present: normal appearance, PERRL, EOMI. Absent: scleral icterus, conjunctival injection, periorbital swelling ENT exam: Present: normal exam, mucous membranes moist Neck exam: Present: normal inspection Respiratory exam: Present: normal lung sounds bilaterally. Absent: respiratory distress, wheezes, rales, rhonchi, stridor Cardiovascular Exam: Present: regular rate, normal rhythm, normal heart sounds. Absent: systolic murmur, diastolic murmur, rubs, gallop, clicks Extremities exam: Present: normal inspection, full ROM, normal capillary refill. Absent: tenderness, pedal edema, joint swelling, calf tenderness Back exam: Present: normal inspection, full ROM, tenderness (Right SI) Neurological exam: Present: alert, oriented X3 Psychiatric exam: Present: normal affect, normal mood Skin exam: Present: warm, dry, intact, normal color. Absent: rash Course Vital Signs 04/18/21 08:20 Temperature 97.7 F Pulse Rate 80 Respiratory 18 Rate Blood Pressure 129/89 O2 Sat by Pulse 98 Oximetry Medical Decision Making - Medical Decision Making 30-year-old male complaining of right lower back pain with radicular symptoms. Final physical exam patient does have point tenderness over his right SI with a positive well leg raise test. Patient will be given a 125 mg Solu-Medrol injection and one tablet of Tylenol 3. Final 3 starter pack given for at home pain control until follow-up with primary care. Patient is given discharge home with follow-up primary care. Case discussed with Dr. Ruelas, patient can discharge home. Disposition Clinical Impression: Sciatica, Lumbar radiculopathy Disposition: HOME SELF-CARE Condition: Stable Instructions (If sedation given, give patient instructions): Acute Low Back Pain (ED) Additional Instructions: Please return to the Emergency Department if symptoms worsen or any other concerns. Follow-up with primary care 1-2 days. Take prednisone as prescribed. Is patient prescribed a controlled substance at d/c from ED?: No Referrals: None,Stated [Primary Care Provider] - 1-2 days Time of Disposition: 09:06
== END 2021-04-18 09:18 | disposition home or self-care (01) ==
LOC: EC 08:19
DX: M54.16 Radiculopathy, lumbar region (principal); M54.41 Lumbago with sciatica, right side; J45.909 Unspecified asthma, uncomplicated; F17.200 Nicotine dependence, unspecified, uncomplicated; Z88.0 Allergy status to penicillin; Z88.1 Allergy status to other antibiotic agents; Z88.2 Allergy status to sulfonamides
CPT/HCPCS: 99283 ×2; 96372 ×2; J2930

== ENCOUNTER 2021-07-08 03:53 | Emergency (ER) | payer OTHER ==
[2021-07-08] MEDS ORDERED: SODIUM CHLORIDE 0.9% 1,000 ML IV STA ×2 (04:04)
[2021-07-08] MEDS ORDERED: MORPHINE SULFATE 4 MG/ML SYRINGE IV STA (04:04)
[2021-07-08] MEDS ORDERED: PANTOPRAZOLE 40 MG/10 ML VIAL IVP STA (04:04)
[2021-07-08] MEDS ORDERED: ONDANSETRON 4 MG/2 ML VIAL IVP STA (04:04)
[2021-07-08] MEDS ORDERED: SODIUM CHLORIDE 0.9% 500 ML 500 ML IV STA (04:04)
--- NOTE | 2021-07-08 04:05 | ED ---
Nausea/Vomiting/Diarrhea HPI - General Chief complaint: Nausea/Vomiting/Diarrhea Stated complaint: Vomiting Time Seen by Provider: 07/08/21 03:58 Source: patient, RN notes reviewed, old records reviewed Mode of arrival: ambulatory Limitations: no limitations - History of Present Illness Initial comments: This is a 31-year-old male DF for evaluation nausea vomiting and diarrhea. Abdominal pain occasionally epigastric abdominal pain especially after vomiting. Currently nauseous without active vomiting no specific or significant pain. No fevers. Patient has no significant medical history takes no medications no travel history. No family versus similar complaints. MD complaint: nausea, vomiting, diarrhea, abdominal pain -: days(s) Description of Vomiting: food contents, watery Description of Diarrhea: water, mucous Associated Abdominal Pain: Yes Location: diffuse Radiation: none Severity: mild Severity scale (1-10): 4 Quality: cramping, aching Consistency: intermittent Worsens with: eating Context: possible food poisoning, sick contacts Associated Symptoms: loss of appetite, nausea/vomiting, weakness - Related Data Home Medications Medication Instructions Recorded Confirmed Citalopram Hydrobromide [CeleXA] 40 mg PO DAILY 02/04/17 07/08/21 OXcarbazepine [Trileptal] 600 mg PO BID 02/04/17 07/08/21 Dextroamphetamine/Amphetamine 30 mg PO TID 12/03/19 07/08/21 [Adderall] Omeprazole 40 mg PO DAILY PRN 07/08/21 07/08/21 busPIRone HCL [Buspar] 30 mg PO BID 07/08/21 07/08/21 clonazePAM [KlonoPIN] 1 mg PO BID 07/08/21 07/08/21 Previous Rx's Medication Instructions Recorded Ondansetron Odt [Zofran Odt] 4 mg PO Q8HR PRN #15 tab 07/08/21 Allergies Allergy/AdvReac Type Severity Reaction Status Date / Time erythromycin base Allergy Unknown Verified 07/08/21 12:49 [From Pediazole] Childhood Penicillins Allergy Unknown Verified 07/08/21 12:49 Childhood sulfisoxazole Allergy Unknown Verified 07/08/21 12:49 [From Pediazole] Childhood Review of Systems ROS Statement: Those systems with pertinent positive or pertinent negative responses have been documented in the HPI. ROS Other: All systems not noted in ROS Statement are negative. Past Medical History Past Medical History: Asthma, GERD/Reflux Additional Past Medical History / Comment(s): HX OF ASTHMA History of Any Multi-Drug Resistant Organisms: None Reported Past Surgical History: Adenoidectomy, Hernia Repair, Tonsillectomy Additional Past Surgical History / Comment(s): web foot repair Additional Past Anesthesia/Blood Transfusion Reaction / Comment(s): NEVER RECEIVED ANESTHESIA. Past Psychological History: Anxiety, Depression Smoking Status: Current every day smoker Past Alcohol Use History: Abuse Past Drug Use History: None Reported - Past Family History Mother Family Medical History: No Reported History General Exam Limitations: no limitations General appearance: alert, in no apparent distress Head exam: Present: atraumatic, normocephalic, normal inspection Eye exam: Present: normal appearance, PERRL, EOMI. Absent: scleral icterus, conjunctival injection, periorbital swelling ENT exam: Present: normal exam, mucous membranes moist Neck exam: Present: normal inspection. Absent: tenderness, meningismus, lymphadenopathy Respiratory exam: Present: normal lung sounds bilaterally. Absent: respiratory distress, wheezes, rales, rhonchi, stridor Cardiovascular Exam: Present: regular rate, normal rhythm, normal heart sounds. Absent: systolic murmur, diastolic murmur, rubs, gallop, clicks GI/Abdominal exam: Present: soft, normal bowel sounds. Absent: distended, tenderness, guarding, rebound, rigid Extremities exam: Present: normal inspection, full ROM, normal capillary refill. Absent: tenderness, pedal edema, joint swelling, calf tenderness Back exam: Present: normal inspection Neurological exam: Present: alert, oriented X3, CN II-XII intact Psychiatric exam: Present: normal affect, normal mood Skin exam: Present: warm, dry, intact, normal color. Absent: rash Course Vital Signs 07/08/21 07/08/21 03:57 05:30 Temperature 98.2 F 98.7 F Pulse Rate 70 79 Respiratory 20 18 Rate Blood Pressure 120/86 130/79 O2 Sat by Pulse 95 97 Oximetry - Reevaluation(s) Reevaluation #1: Medical record is reviewed Symptoms improved here in the ER Patient informed results and questions answered Medical Decision Making - Medical Decision Making 28 male with significant nausea vomiting abdominal pain. Symptoms are markedly improved here in the emergency department and patient can be discharged home - Lab Data Result diagrams: 07/08/21 04:13 07/08/21 04:13 Lab Results 07/08/21 07/08/21 Range/Units 04:13 04:13 WBC 8.9 (3.8-10.6) k/uL RBC 5.64 (4.30-5.90) m/uL Hgb 16.7 (13.0-17.5) gm/dL Hct 49.5 (39.0-53.0) % MCV 87.8 (80.0-100.0) fL MCH 29.6 (25.0-35.0) pg MCHC 33.7 (31.0-37.0) g/dL RDW 13.9 (11.5-15.5) % Plt Count 185 (150-450) k/uL MPV 9.1 Neutrophils % 70 % Lymphocytes % 21 % Monocytes % 6 % Eosinophils % 1 % Basophils % 1 % Neutrophils # 6.2 (1.3-7.7) k/uL Lymphocytes # 1.9 (1.0-4.8) k/uL Monocytes # 0.5 (0-1.0) k/uL Eosinophils # 0.1 (0-0.7) k/uL Basophils # 0.0 (0-0.2) k/uL Sodium 138 (137-145) mmol/L Potassium 4.5 (3.5-5.1) mmol/L Chloride 103 (98-107) mmol/L Carbon Dioxide 28 (22-30) mmol/L Anion Gap 7 mmol/L BUN 18 (9-20) mg/dL Creatinine 0.97 (0.66-1.25) mg/dL Est GFR (CKD-EPI)AfAm >90 (>60 ml/min/1.73 sqM) Est GFR (CKD-EPI)NonAf >90 (>60 ml/min/1.73 sqM) Glucose 104 H (74-99) mg/dL Calcium 9.6 (8.4-10.2) mg/dL Total Bilirubin 0.7 (0.2-1.3) mg/dL AST 26 (17-59) U/L ALT 30 (4-49) U/L Alkaline Phosphatase 97 (38-126) U/L Total Protein 7.7 (6.3-8.2) g/dL Albumin 4.7 (3.5-5.0) g/dL Amylase 68 (30-110) U/L Lipase 180 (23-300) U/L - Radiology Data Radiology results: report reviewed (CT abdomen and pelvis is negative for acute disease), image reviewed Disposition Clinical Impression: Dehydration, Gastroenteritis, Abdominal pain Disposition: HOME SELF-CARE Condition: Good Instructions (If sedation given, give patient instructions): Acute Nausea and Vomiting (ED) Is patient prescribed a controlled substance at d/c from ED?: No Referrals: Nonstaff,Physician [Primary Care Provider] - 1-2 days
--- NOTE | 2021-07-08 04:49 | CT ---
EXAMINATION TYPE: CT abdomen pelvis wo con DATE OF EXAM: 07/08/2021 COMPARISON: 08/01/2019 HISTORY: low back pain and vomiting CT DLP: 741.2 mGycm Automated exposure control for dose reduction was used. Images obtained from the diaphragm to the floor the pelvis without contrast. Lung bases are clear. There is no pleural effusion. Heart size is normal. There is no pericardial eff usion. Liver spleen stomach pancreas and gallbladder appear intact. Bowel is nondilated. There is no adrenal mass. Kidneys have normal size. There is no hydronephrosis. Ureters are not dilat ed. There is 2 cm cortical cyst anterior right kidney. There is no retroperitoneal adenopathy. Append ix not seen. No sign of thickened appendix. There is no mesenteric edema. There is no ascites or free air. There is no sign of a bowel obstructio n. The lumbar vertebrae have normal alignment. There is no compression fracture. The bony pelvis is inta ct. Hip joints appear normal. There is no evidence of a pelvic mass. IMPRESSION: Negative CT scan abdomen and pelvis. There is clearing of the left renal obstruction compared to old exam.
[2021-07-08] MEDS ORDERED: KETOROLAC 15 MG/ML 1 ML VIAL IVP STA (04:51)
[2021-07-08] MEDS ORDERED: PROCHLORPERAZINE INJ 10 MG/2 ML VIAL IVP STA (04:51)
[2021-07-08] MEDS ORDERED: LORazepam 2 MG/ML INJ IV STA (04:51)
[2021-07-08 04:54] LABS: Basophils % (A) 1 %; Eosinophils # (A) 0.1 k/uL (0-0.7); Eosinophils % (A) 1 %; HCT 49.5 % (39.0-53.0); HGB 16.7 gm/dL (13.0-17.5); Lymphocytes # (A) 1.9 k/uL (1.0-4.8); Lymphocytes % (A) 21 %; MCH 29.6 pg (25.0-35.0); MCHC 33.7 g/dL (31.0-37.0); MCV 87.8 fL (80.0-100.0); Mean Platelet Volume 9.1; Monocytes # (A) 0.5 k/uL (0-1.0); Monocytes % (A) 6 %; Neutrophils # (A) 6.2 k/uL (1.3-7.7); Neutrophils % (A) 70 %; Platelet Count 185 k/uL (150-450); RBC 5.64 m/uL (4.30-5.90); RDW 13.9 % (11.5-15.5); WBC 8.9 k/uL (3.8-10.6)
[2021-07-08] MEDS ORDERED: ONDANSETRON 4 MG ODT STARTER PACK 2 TAB BTL PO STA (04:54)
[2021-07-08] MEDS ORDERED: IBUPROFEN 600 MG STARTER PACK 4 TAB BTL PO STA (04:54)
[2021-07-08 05:15] LABS: ALT 30 U/L (4-49); AST 26 U/L (17-59); African American GFR (CKD) >90 (>60 ml/min/1.73 sqM); Albumin 4.7 g/dL (3.5-5.0); Alkaline Phosphatase 97 U/L (38-126); Amylase 68 U/L (30-110); Anion Gap 7 mmol/L; Blood Urea Nitrogen 18 mg/dL (9-20); Calcium 9.6 mg/dL (8.4-10.2); Carbon Dioxide 28 mmol/L (22-30); Chloride 103 mmol/L (98-107); Glucose 104 mg/dL (74-99); Lipase 180 U/L (23-300); Non-African American GFR(CKD) >90 (>60 ml/min/1.73 sqM); Potassium 4.5 mmol/L (3.5-5.1); Sodium 138 mmol/L (137-145); Total Bilirubin 0.7 mg/dL (0.2-1.3); Total Protein 7.7 g/dL (6.3-8.2)
[2021-07-08 05:34] VITALS: BP 130/79; PULSE 79; RESP 18; TEMP 98.7
== END 2021-07-08 05:38 | disposition home or self-care (01) ==
LOC: EC 03:53
DX: K52.9 Noninfective gastroenteritis and colitis, unspecified (principal); E86.0 Dehydration; J45.909 Unspecified asthma, uncomplicated; K21.9 Gastro-esophageal reflux disease without esophagitis; F17.200 Nicotine dependence, unspecified, uncomplicated; Z88.1 Allergy status to other antibiotic agents; Z88.0 Allergy status to penicillin; Z88.2 Allergy status to sulfonamides
CPT/HCPCS: 36415; 80053; 82150; 83690; 85025; 74176; 96361; 96374; 96375; 99284; J2060; J2270; J0780; J2405; J1885; S0119; C9113

== ENCOUNTER 2021-07-08 11:50 | Emergency (ER) | payer OTHER ==
[2021-07-08 12:15] VITALS: BP 130/89; PULSE 89; RESP 16; TEMP 98
[2021-07-08] MEDS ORDERED: CAPSAICIN 0.025% CREAM 60 GM TUBE TOPICAL STA (12:40)
[2021-07-08] MEDS ORDERED: diphenhydrAMINE 50 MG/ML 1 ML VIAL IVP STA (12:41)
[2021-07-08] MEDS ORDERED: SODIUM CHLORIDE 0.9% 1,000 ML IV ONE (12:41)
[2021-07-08] MEDS ORDERED: HALOPERIDOL LACTATE 5 MG/ML 1 ML VIAL IVP STA (12:42)
--- NOTE | 2021-07-08 13:17 | ED ---
General Adult HPI - General Chief complaint: Nausea/Vomiting/Diarrhea Stated complaint: N/V/D Time Seen by Provider: 07/08/21 12:15 Source: patient Mode of arrival: ambulatory Limitations: no limitations - History of Present Illness Initial comments: 30-year-old male since emergency department with lower abdominal pain and vomiting. Patient was seen earlier today for similar complaint. He reports that he began having nausea after he smoked marijuana last night. He reports he has been smoking marijuana for the past 3 months and has been having adverse reactions. He has never been diagnosed with hyperemesis. Denies eating any tainted foods. No sick contacts with similar symptoms. She was tested for Covid and was negative. He came into the emergency room and earlier this morning was treated with antiemetics. He was given 2 Zofran to go home with. States he continued to have nausea and vomited up the 2 Zofran. His laboratory studies were all negative. Patient even had a CT performed which demonstrated no acute intra-abdominal findings. He denies fevers. No concern for sexually transmitted infections. Reports normal bowel movements. No other alleviating, precipitating or modifying factors - Related Data Home Medications Medication Instructions Recorded Confirmed Citalopram Hydrobromide [CeleXA] 40 mg PO DAILY 02/04/17 07/08/21 OXcarbazepine [Trileptal] 600 mg PO BID 02/04/17 07/08/21 Dextroamphetamine/Amphetamine 30 mg PO TID 12/03/19 07/08/21 [Adderall] Omeprazole 40 mg PO DAILY PRN 07/08/21 07/08/21 busPIRone HCL [Buspar] 30 mg PO BID 07/08/21 07/08/21 clonazePAM [KlonoPIN] 1 mg PO BID 07/08/21 07/08/21 Previous Rx's Medication Instructions Recorded Ondansetron Odt [Zofran Odt] 4 mg PO Q8HR PRN #15 tab 07/08/21 Allergies Allergy/AdvReac Type Severity Reaction Status Date / Time erythromycin base Allergy Unknown Verified 07/08/21 12:49 [From Pediazole] Childhood Penicillins Allergy Unknown Verified 07/08/21 12:49 Childhood sulfisoxazole Allergy Unknown Verified 07/08/21 12:49 [From Pediazole] Childhood Review of Systems ROS Statement: Those systems with pertinent positive or pertinent negative responses have been documented in the HPI. ROS Other: All systems not noted in ROS Statement are negative. Past Medical History Past Medical History: Asthma, GERD/Reflux Additional Past Medical History / Comment(s): HX OF ASTHMA History of Any Multi-Drug Resistant Organisms: None Reported Past Surgical History: Adenoidectomy, Hernia Repair, Tonsillectomy Additional Past Surgical History / Comment(s): web foot repair Additional Past Anesthesia/Blood Transfusion Reaction / Comment(s): NEVER RECEIVED ANESTHESIA. Past Psychological History: Anxiety, Depression Smoking Status: Current every day smoker Past Alcohol Use History: Abuse Past Drug Use History: Marijuana - Past Family History Mother Family Medical History: No Reported History General Exam Limitations: no limitations General appearance: alert, in no apparent distress Head exam: Present: atraumatic, normocephalic, normal inspection Eye exam: Present: normal appearance, PERRL, EOMI. Absent: scleral icterus, conjunctival injection, periorbital swelling ENT exam: Present: normal exam, mucous membranes moist Neck exam: Present: normal inspection. Absent: tenderness, meningismus, lymphadenopathy Respiratory exam: Present: normal lung sounds bilaterally. Absent: respiratory distress, wheezes, rales, rhonchi, stridor Cardiovascular Exam: Present: regular rate, normal rhythm, normal heart sounds. Absent: systolic murmur, diastolic murmur, rubs, gallop, clicks GI/Abdominal exam: Present: soft, normal bowel sounds. Absent: distended, tenderness, guarding, rebound, rigid Extremities exam: Present: normal inspection, full ROM, normal capillary refill. Absent: tenderness, pedal edema, joint swelling, calf tenderness Back exam: Present: normal inspection Neurological exam: Present: alert, oriented X3, CN II-XII intact Psychiatric exam: Present: normal affect, normal mood Skin exam: Present: warm, dry, intact, normal color. Absent: rash Course Vital Signs 07/08/21 12:12 Temperature 98 F Pulse Rate 89 Respiratory 16 Rate Blood Pressure 130/89 O2 Sat by Pulse 97 Oximetry Medical Decision Making - Medical Decision Making Upon arrival patient was placed into room 17. Thorough history and physical exam is performed. I did review the patient's record from earlier today. Patient is aware of the strong correlation between THC use and vomiting. Patient is instructed to further cease THC use. He is given 2.5 mg of IV Haldol, 50 mg of Benadryl, a liter bolus of normal saline and capsaicin cream is applied to his abdomen. Patient is watched for 2 hours without emesis. He'll be discharged home with the tube of capsaicin cream. Instructed to stop smoking marijuana. Take a hot shower if symptoms return. Zofran as called in to pharmacy. Patient agreed to the treatment plan and was discharged home in [facility] - Lab Data Lab Results 07/08/21 Range/Units 13:02 Coronavirus (PCR) Not Detected (Not Detectd) Disposition Clinical Impression: Abdominal pain, Nausea and vomiting, Cannabinoid hyperemesis syndrome Disposition: HOME SELF-CARE Condition: Stable Instructions (If sedation given, give patient instructions): Cyclic Vomiting Syndrome (ED) Additional Instructions: Please stop smoking marijuana. You can rub the capsacian cream on your abdomen or take a hot shower for further nausea. Zofran was sent to the pharmacy. Return for any new or worsening symptoms . Prescriptions: Ondansetron Odt [Zofran Odt] 4 mg PO Q8HR PRN #15 tab PRN Reason: Nausea Is patient prescribed a controlled substance at d/c from ED?: No Referrals: None,Stated [Primary Care Provider] - 1-2 days Time of Disposition: 14:17
== END 2021-07-08 14:25 | disposition home or self-care (01) ==
LOC: EC 11:50
DX: R10.30 Lower abdominal pain, unspecified (principal); R11.2 Nausea with vomiting, unspecified; J45.909 Unspecified asthma, uncomplicated; K21.9 Gastro-esophageal reflux disease without esophagitis; F17.200 Nicotine dependence, unspecified, uncomplicated; Z20.822 Contact with and (suspected) exposure to COVID-19; Z79.83 Long term (current) use of bisphosphonates; Z88.0 Allergy status to penicillin; Z88.1 Allergy status to other antibiotic agents; Z88.2 Allergy status to sulfonamides
CPT/HCPCS: 87635; 99284; 96374; 96375; 96361; J1200; J1630

== ENCOUNTER 2021-08-28 12:26 | Observation (INO) | payer OTHER ==
[2021-08-28] MEDS ORDERED: SODIUM CHLORIDE 0.9% 1,000 ML IV STA ×2 (13:13→20:18)
[2021-08-28] MEDS ORDERED: diphenhydrAMINE 50 MG/ML 1 ML VIAL IVP STA (13:13)
[2021-08-28] MEDS ORDERED: ONDANSETRON 4 MG/2 ML VIAL IVP STA (13:13)
[2021-08-28] MEDS ORDERED: LOPERAMIDE 2 MG CAP PO STA (13:13)
--- NOTE | 2021-08-28 13:39 | ED ---
General Adult HPI - General Chief complaint: Nausea/Vomiting/Diarrhea Stated complaint: NVD Time Seen by Provider: 08/28/21 12:54 Source: patient, RN notes reviewed, old records reviewed Mode of arrival: ambulatory Limitations: no limitations - History of Present Illness Initial comments: Patient is a 31 year old male with past medical history remarkable for daily marijuana use presents emergency Department complaining of a four-day history of loose stools. Also had an episode of embolus, emesis today. Denies any sick contacts. Denies taking any actual water, [place]. Is not around livestock animals. Lives at home. No one at home has similar symptoms. States she has multiple episodes of loose stools per day that are nonbloody. States he is less than appetite. Denies any fevers, shortness breath, cough, chest pain, shortness of breath, abdominal pain. Denies any urinary complaints. His no other acute complaint at this time. Patient states he feels dehydrated. He wanted to be evaluated. He has been tolerating oral intake. Has been attempting to cut back on her marijuana use. No other acute complaints at this time. - Related Data Home Medications Medication Instructions Recorded Confirmed Citalopram Hydrobromide [CeleXA] 40 mg PO DAILY 02/04/17 08/28/21 OXcarbazepine [Trileptal] 600 mg PO BID 02/04/17 08/28/21 Dextroamphetamine/Amphetamine 30 mg PO TID 12/03/19 08/28/21 [Adderall] busPIRone HCL [Buspar] 30 mg PO BID 07/08/21 08/28/21 clonazePAM [KlonoPIN] 1 mg PO BID 07/08/21 08/28/21 Allergies Allergy/AdvReac Type Severity Reaction Status Date / Time erythromycin base Allergy Unknown Verified 08/28/21 14:51 [From Pediazole] Childhood Penicillins Allergy Rash all Verified 08/28/21 14:51 over body sulfisoxazole Allergy Unknown Verified 08/28/21 14:51 [From Pediazole] Childhood Review of Systems ROS Statement: Those systems with pertinent positive or pertinent negative responses have been documented in the HPI. Review of Systems: CONST: Denies fever EYES: Denies blurry vision ENT: Denies nasal congestion C/V: Denies Chest pain RESP: Denies shortness of breath GI: Denies abdominal pain : Denies dysuria SKIN: Denies rash. MSK: Denies joint pain. NEURO: Denies headache ROS Other: All systems not noted in ROS Statement are negative. Past Medical History Past Medical History: Asthma, GERD/Reflux Additional Past Medical History / Comment(s): HX OF ASTHMA History of Any Multi-Drug Resistant Organisms: None Reported Past Surgical History: Adenoidectomy, Hernia Repair, Tonsillectomy Additional Past Surgical History / Comment(s): web foot repair Additional Past Anesthesia/Blood Transfusion Reaction / Comment(s): NEVER RECEIVED ANESTHESIA. Past Psychological History: Anxiety, Depression Smoking Status: Current every day smoker Past Alcohol Use History: None Reported Past Drug Use History: Marijuana - Past Family History Mother Family Medical History: No Reported History General Exam - General Exam Comments Initial Comments: General: Appears in no acute distress. HEAD: Normal with no signs of head trauma. EYES: PERRLA, EOMI, conjunctiva normal, no discharge. ENT: Hearing grossly intact, normal oropharynx. Mildly dry mucous membranes. RESPIRATORY: Clear breath sounds bilaterally. No wheezes, rales, or rhonchi. C/V: Regular rate and rhythm. S1 and S2 auscultated, no edema, peripheral p ulses 2+ and intact throughout ABD: Abd is soft, nontender, nondistended EXT: Normal range of motion, no obvious deformity SKIN: No rashes or lesions observed on exposed skin. NEURO: Alert and oriented 4. Limitations: no limitations Course Vital Signs 08/28/21 08/28/21 12:30 15:08 Temperature 98.4 F 98 F Pulse Rate 71 65 Respiratory 18 16 Rate Blood Pressure 119/81 109/70 O2 Sat by Pulse 98 95 Oximetry Medical Decision Making - Medical Decision Making Based on the patient's presentation and physical exam, he appears to be experiencing acute gastroenteritis. He does appear little dehydrated, but otherwise asymptomatic. However as this is day 4, he is requesting IV fluids which I believe is reasonable. We will check for any signs of dehydration. Is also requesting COVID-19 swab, which I believe is reasonable as well. He'll be symptomatically treated with IV fluids, as well as Zofran, Benadryl, Imodium. He was in agreement with this plan. Patient's laboratory studies are remarkable for what appears to be acute pancreatitis with an elevated amylase at 288 an elevated lipase of 3664. Covid is negative. Remainder the labs are unremarkable. On reevaluation, patient remains relatively asymptomatic is mildly nauseous but denies any abdominal pain. I discussed the findings with the patient. I believe it is best to admit the patient for IV fluid hydration as well as symptomatic treatment of his acute pancreatitis. He was in agreement this plan. I spoke with the admitting physician, Dr. Gurrola who accepted the patient per patient was therefore admitted in stable condition. - Lab Data Result diagrams: 08/28/21 13:34 08/28/21 13:34 Lab Results 08/28/21 08/28/21 08/28/21 Range/Units 13:34 13:34 13:35 WBC 9.7 (3.8-10.6) k/uL RBC 5.02 (4.30-5.90) m/uL Hgb 15.0 (13.0-17.5) gm/dL Hct 43.4 (39.0-53.0) % MCV 86.6 (80.0-100.0) fL MCH 29.8 (25.0-35.0) pg MCHC 34.4 (31.0-37.0) g/dL RDW 14.3 (11.5-15.5) % Plt Count 237 (150-450) k/uL MPV 7.3 Neutrophils % 64 % Lymphocytes % 24 % Monocytes % 7 % Eosinophils % 1 % Basophils % 0 % Neutrophils # 6.2 (1.3-7.7) k/uL Lymphocytes # 2.3 (1.0-4.8) k/uL Monocytes # 0.7 (0-1.0) k/uL Eosinophils # 0.1 (0-0.7) k/uL Basophils # 0.0 (0-0.2) k/uL Sodium 137 (137-145) mmol/L Potassium 4.0 (3.5-5.1) mmol/L Chloride 106 (98-107) mmol/L Carbon Dioxide 26 (22-30) mmol/L Anion Gap 5 mmol/L BUN 14 (9-20) mg/dL Creatinine 0.83 (0.66-1.25) mg/dL Est GFR (CKD-EPI)AfAm >90 (>60 ml/min/1.73 sqM) Est GFR (CKD-EPI)NonAf >90 (>60 ml/min/1.73 sqM) Glucose 91 (74-99) mg/dL Calcium 8.7 (8.4-10.2) mg/dL Total Bilirubin 0.6 (0.2-1.3) mg/dL AST 17 (17-59) U/L ALT 19 (4-49) U/L Alkaline Phosphatase 94 (38-126) U/L Total Protein 6.9 (6.3-8.2) g/dL Albumin 4.1 (3.5-5.0) g/dL Amylase 288 H (30-110) U/L Lipase 3664 H (23-300) U/L Coronavirus (PCR) Not Detected (Not Detectd) Disposition Clinical Impression: Acute pancreatitis, Dehydration, Diarrhea Disposition: ADMITTED IP TO THIS HOSP Condition: Stable
[2021-08-28 13:53] LABS: ALT 19 U/L (4-49); AST 17 U/L (17-59); African American GFR (CKD) >90 (>60 ml/min/1.73 sqM); Albumin 4.1 g/dL (3.5-5.0); Alkaline Phosphatase 94 U/L (38-126); Amylase 288 U/L (30-110); Anion Gap 5 mmol/L; Basophils % (A) 0 %; Blood Urea Nitrogen 14 mg/dL (9-20); Calcium 8.7 mg/dL (8.4-10.2); Carbon Dioxide 26 mmol/L (22-30); Chloride 106 mmol/L (98-107); Eosinophils # (A) 0.1 k/uL (0-0.7); Eosinophils % (A) 1 %; Glucose 91 mg/dL (74-99); HCT 43.4 % (39.0-53.0); Lymphocytes # (A) 2.3 k/uL (1.0-4.8); Lymphocytes % (A) 24 %; MCH 29.8 pg (25.0-35.0); MCHC 34.4 g/dL (31.0-37.0); MCV 86.6 fL (80.0-100.0); Mean Platelet Volume 7.3; Monocytes # (A) 0.7 k/uL (0-1.0); Monocytes % (A) 7 %; Neutrophils # (A) 6.2 k/uL (1.3-7.7); Neutrophils % (A) 64 %; Non-African American GFR(CKD) >90 (>60 ml/min/1.73 sqM); Platelet Count 237 k/uL (150-450); RBC 5.02 m/uL (4.30-5.90); RDW 14.3 % (11.5-15.5); Sodium 137 mmol/L (137-145); Total Bilirubin 0.6 mg/dL (0.2-1.3); Total Protein 6.9 g/dL (6.3-8.2); WBC 9.7 k/uL (3.8-10.6)
[2021-08-28 14:10] LABS: Lipase 3664 U/L (23-300)
[2021-08-28 15:09] VITALS: BP 109/70; PULSE 65; RESP 16; TEMP 98
[2021-08-28] MEDS ORDERED: ONDANSETRON 4 MG/2 ML VIAL IVP PRN ×2 (15:11→20:19)
[2021-08-28] MEDS ORDERED: MORPHINE SULFATE 4 MG/ML SYRINGE IV PRN (15:11)
[2021-08-28] MEDS ORDERED: NALOXONE 0.4 MG/ML 1 ML VIAL IV PRN (15:11)
[2021-08-28] MEDS ORDERED: SODIUM CHLORIDE 0.9% 1,000 ML IV SCH (15:15)
[2021-08-28] MEDS ORDERED: busPIRone HCl 10 MG TAB PO SCH (21:00)
[2021-08-28] MEDS ORDERED: clonazePAM 1 MG TAB PO SCH (21:00)
[2021-08-28] MEDS ORDERED: OXcarbazepine 300 MG TAB PO SCH (21:00)
[2021-08-28] MEDS ORDERED: NON FORMULARY DRUG (Dextroamphetamine/Amphetamine [Adderall] 30 MG Tablet) PO SCH (22:00)
[2021-08-29] MEDS ORDERED: CITALOPRAM HYDROBROMIDE 20 MG TAB PO SCH (09:00)
== END 2021-08-28 15:52 | disposition left against medical advice (07) ==
LOC: EC 12:26 → 6NMEDSUR 15:12
PROVIDERS: ADMIT Internal Medicine; ATTEND Internal Medicine
DX: K85.90 Acute pancreatitis without necrosis or infection, unspecified (principal); E86.0 Dehydration; J45.909 Unspecified asthma, uncomplicated; K21.9 Gastro-esophageal reflux disease without esophagitis; F32.A Depression, unspecified; F41.9 Anxiety disorder, unspecified; F17.200 Nicotine dependence, unspecified, uncomplicated; Z53.29 Procedure and treatment not carried out because of patient's decision for other reasons; Z20.822 Contact with and (suspected) exposure to COVID-19; Z79.899 Other long term (current) drug therapy; Z88.0 Allergy status to penicillin; Z88.1 Allergy status to other antibiotic agents; Z88.2 Allergy status to sulfonamides; Z98.890 Other specified postprocedural states
CPT/HCPCS: 96374; 96375; 99285; 36415; 80053; 82150; 83690; 85025; 87635; G0378; J1200; J2405

== ENCOUNTER 2021-08-28 21:39 | Observation (INO) | payer OTHER ==
[2021-08-28 21:49] VITALS: BP 102/64; PULSE 66; RESP 18; TEMP 97.8
[2021-08-28 22:59] LABS: Basophils # (A) 0.1 k/uL (0-0.2); Basophils % (A) 1 %; Eosinophils # (A) 0.2 k/uL (0-0.7); Eosinophils % (A) 2 %; HCT 42.4 % (39.0-53.0); HGB 14.2 gm/dL (13.0-17.5); Lymphocytes # (A) 3.7 k/uL (1.0-4.8); Lymphocytes % (A) 38 %; MCH 29.4 pg (25.0-35.0); MCHC 33.5 g/dL (31.0-37.0); MCV 87.6 fL (80.0-100.0); Mean Platelet Volume 7.3; Monocytes # (A) 0.8 k/uL (0-1.0); Monocytes % (A) 8 %; Neutrophils # (A) 4.7 k/uL (1.3-7.7); Neutrophils % (A) 49 %; Platelet Count 222 k/uL (150-450); RBC 4.84 m/uL (4.30-5.90); RDW 13.8 % (11.5-15.5); WBC 9.6 k/uL (3.8-10.6)
[2021-08-28 23:13] LABS: ALT 16 U/L (4-49); AST 15 U/L (17-59); African American GFR (CKD) >90 (>60 ml/min/1.73 sqM); Albumin 3.7 g/dL (3.5-5.0); Alkaline Phosphatase 75 U/L (38-126); Amylase 297 U/L (30-110); Anion Gap 7 mmol/L; Blood Urea Nitrogen 14 mg/dL (9-20); Calcium 8.2 mg/dL (8.4-10.2); Carbon Dioxide 26 mmol/L (22-30); Chloride 105 mmol/L (98-107); Glucose 106 mg/dL (74-99); Non-African American GFR(CKD) >90 (>60 ml/min/1.73 sqM); Potassium 3.4 mmol/L (3.5-5.1); Sodium 138 mmol/L (137-145); Total Bilirubin 0.5 mg/dL (0.2-1.3); Total Protein 6.1 g/dL (6.3-8.2)
[2021-08-28 23:28] LABS: Lipase 3125 U/L (23-300)
--- NOTE | 2021-08-28 23:31 | ED ---
Nausea/Vomiting/Diarrhea HPI - General Chief complaint: Nausea/Vomiting/Diarrhea Stated complaint: Abnormal Labs,Was here today Time Seen by Provider: 08/28/21 22:01 Source: patient Mode of arrival: ambulatory Limitations: no limitations - History of Present Illness Initial comments: This patient is 31-year-old man who presents to have reevaluation for mainly diarrhea but there is also a component of nausea and vomiting. This been going on since Friday. Patient believes he has had over 10 episodes of diarrhea in the past day. There is been probably one episode of vomiting. I he has not noted any blood being passed. Patient denies abdomen or back pain. Patient had been seen here earlier in the day by Dr. Diaz. He was diagnosed as having pancreatitis and was going to be admitted but he had to take care of some details at home first. MD complaint: nausea, diarrhea -: days(s) Description of Diarrhea: water Associated Abdominal Pain: No Improves with: none Worsens with: none Associated Symptoms: denies other symptoms - Related Data Home Medications Medication Instructions Recorded Confirmed Citalopram Hydrobromide [CeleXA] 40 mg PO DAILY 02/04/17 08/28/21 OXcarbazepine [Trileptal] 600 mg PO BID 02/04/17 08/28/21 Dextroamphetamine/Amphetamine 30 mg PO TID 12/03/19 08/28/21 [Adderall] busPIRone HCL [Buspar] 30 mg PO BID 07/08/21 08/28/21 clonazePAM [KlonoPIN] 1 mg PO BID 07/08/21 08/28/21 Allergies Allergy/AdvReac Type Severity Reaction Status Date / Time erythromycin base Allergy Unknown Verified 08/28/21 22:50 [From Pediazole] Childhood Penicillins Allergy Rash all Verified 08/28/21 22:50 over body sulfisoxazole Allergy Unknown Verified 08/28/21 22:50 [From Pediazole] Childhood Review of Systems ROS Statement: Those systems with pertinent positive or pertinent negative responses have been documented in the HPI. ROS Other: All systems not noted in ROS Statement are negative. Constitutional: Denies: fever, chills Respiratory: Denies: cough, dyspnea Cardiovascular: Denies: chest pain, palpitations Gastrointestinal: Reports: nausea, diarrhea. Denies: abdominal pain, vomiting, constipation, melena, hematochezia Genitourinary: Denies: dysuria, hematuria Musculoskeletal: Denies: back pain Skin: Denies: rash Neurological: Denies: headache, weakness, numbness Past Medical History Past Medical History: Asthma, GERD/Reflux Additional Past Medical History / Comment(s): HX OF ASTHMA History of Any Multi-Drug Resistant Organisms: None Reported Past Surgical History: Adenoidectomy, Hernia Repair, Tonsillectomy Additional Past Surgical History / Comment(s): web foot repair Additional Past Anesthesia/Blood Transfusion Reaction / Comment(s): NEVER RECEIVED ANESTHESIA. Past Psychological History: Anxiety, Depression Smoking Status: Current every day smoker Past Alcohol Use History: None Reported Past Drug Use History: Marijuana - Past Family History Mother Family Medical History: No Reported History General Exam Limitations: no limitations General appearance: alert, in no apparent distress Eye exam: Present: normal appearance. Absent: scleral icterus, conjunctival injection Respiratory exam: Present: normal lung sounds bilaterally. Absent: respiratory distress, wheezes, rales, rhonchi, stridor Cardiovascular Exam: Present: regular rate, normal rhythm, normal heart sounds. Absent: systolic murmur, diastolic murmur, rubs, gallop GI/Abdominal exam: Present: soft. Absent: distended, tenderness, guarding, rebound, rigid, mass, pulsatile mass Extremities exam: Present: normal inspection, normal capillary refill. Absent: pedal edema, calf tenderness Back exam: Present: normal inspection. Absent: CVA tenderness (R), CVA tenderness (L) Neurological exam: Present: alert Skin exam: Present: warm, dry, intact, normal color. Absent: rash Course Vital Signs 08/28/21 21:47 Temperature 97.8 F Pulse Rate 66 Respiratory 18 Rate Blood Pressure 102/64 O2 Sat by Pulse 96 Oximetry Medical Decision Making - Lab Data Result diagrams: 08/28/21 22:53 08/28/21 22:53 Lab Results 08/28/21 08/28/21 Range/Units 22:53 22:53 WBC 9.6 (3.8-10.6) k/uL RBC 4.84 (4.30-5.90) m/uL Hgb 14.2 (13.0-17.5) gm/dL Hct 42.4 (39.0-53.0) % MCV 87.6 (80.0-100.0) fL MCH 29.4 (25.0-35.0) pg MCHC 33.5 (31.0-37.0) g/dL RDW 13.8 (11.5-15.5) % Plt Count 222 (150-450) k/uL MPV 7.3 Neutrophils % 49 % Lymphocytes % 38 % Monocytes % 8 % Eosinophils % 2 % Basophils % 1 % Neutrophils # 4.7 (1.3-7.7) k/uL Lymphocytes # 3.7 (1.0-4.8) k/uL Monocytes # 0.8 (0-1.0) k/uL Eosinophils # 0.2 (0-0.7) k/uL Basophils # 0.1 (0-0.2) k/uL Sodium 138 (137-145) mmol/L Potassium 3.4 L (3.5-5.1) mmol/L Chloride 105 (98-107) mmol/L Carbon Dioxide 26 (22-30) mmol/L Anion Gap 7 mmol/L BUN 14 (9-20) mg/dL Creatinine 0.83 (0.66-1.25) mg/dL Est GFR (CKD-EPI)AfAm >90 (>60 ml/min/1.73 sqM) Est GFR (CKD-EPI)NonAf >90 (>60 ml/min/1.73 sqM) Glucose 106 H (74-99) mg/dL Calcium 8.2 L (8.4-10.2) mg/dL Total Bilirubin 0.5 (0.2-1.3) mg/dL AST 15 L (17-59) U/L ALT 16 (4-49) U/L Alkaline Phosphatase 75 (38-126) U/L Total Protein 6.1 L (6.3-8.2) g/dL Albumin 3.7 (3.5-5.0) g/dL Amylase 297 H (30-110) U/L Lipase 3125 H (23-300) U/L Disposition Clinical Impression: Acute pancreatitis, Diarrhea Disposition: ADMITTED IP TO THIS [facility] Condition: Good Referrals: None,Stated [Primary Care Provider] - 1-2 days
--- NOTE | 2021-08-28 23:41 | US ---
EXAMINATION TYPE: US abdomen limited DATE OF EXAM: 08/28/2021 COMPARISON: ct 07/08/21 CLINICAL HISTORY: attention RUQ. Patient complains of abdominal discomfort; thorough hx could not be obtained EXAM MEASUREMENTS: Liver Length: 15.1 cm Gallbladder Wall: 0.32 cm CBD: 0.45 cm Right Kidney: 10.0 x 5.6 x 5.2 cm Pancreas: Obscured by bowel gas Liver: appears wnl Gallbladder: Wall is somewhat thickened Evidence for sonographic Barker's sign: No CBD: wnl Right Kidney: No hydronephrosis or masses seen IMPRESSION: Partly contracted gallbladder. No gallstones or dilated ducts. No focal liver defect.
[2021-08-29] MEDS ORDERED: ONDANSETRON 4 MG/2 ML VIAL IVP PRN (01:59)
[2021-08-29] MEDS ORDERED: NALOXONE 0.4 MG/ML 1 ML VIAL IV PRN (01:59)
[2021-08-29] MEDS ORDERED: ACETAMINOPHEN TAB 325 MG TAB PO PRN (01:59)
[2021-08-29] MEDS ORDERED: SODIUM CHLORIDE 0.9% 1,000 ML IV SCH (02:00)
[2021-08-29] MEDS ORDERED: FAMOTIDINE 20 MG TAB PO SCH (09:00)
== END 2021-08-29 02:40 | disposition left against medical advice (07) ==
LOC: EC 21:39 → 6NMEDSUR 08-29 02:00
PROVIDERS: ADMIT Internal Medicine; ATTEND Internal Medicine
DX: K85.90 Acute pancreatitis without necrosis or infection, unspecified (principal); K21.9 Gastro-esophageal reflux disease without esophagitis; J45.909 Unspecified asthma, uncomplicated; F32.A Depression, unspecified; F41.9 Anxiety disorder, unspecified; F17.200 Nicotine dependence, unspecified, uncomplicated; Z79.899 Other long term (current) drug therapy; Z88.0 Allergy status to penicillin; Z88.1 Allergy status to other antibiotic agents; Z88.2 Allergy status to sulfonamides; Z98.890 Other specified postprocedural states; Z53.29 Procedure and treatment not carried out because of patient's decision for other reasons
CPT/HCPCS: 36415; 76705; 80053; 82150; 83690; 85025; 99285

== ENCOUNTER 2021-10-29 07:20 | Emergency (ER) | payer OTHER ==
[2021-10-29 07:54] VITALS: BP 119/73; PULSE 74; RESP 18; TEMP 98.1
[2021-10-29] MEDS ORDERED: SODIUM CHLORIDE 0.9% 500 ML 500 ML IV STA (08:07)
[2021-10-29] MEDS ORDERED: MAG HYDROX/AL HYDROX/SIMETH 30 ML, HYOSCYAMINE ELIXIR 10 ML, LIDOCAINE VISCOUS 2% 10 ML PO STA ×3 (08:07)
--- NOTE | 2021-10-29 08:10 | ED ---
General Adult HPI - General Chief complaint: Nausea/Vomiting/Diarrhea Stated complaint: vomiting, diarrhea Time Seen by Provider: 10/29/21 08:00 Source: patient, RN notes reviewed, old records reviewed Mode of arrival: ambulatory Limitations: no limitations - History of Present Illness Initial comments: Nontoxic-appearing 31-year-old male presents to the emergency room, alert and oriented 4, with complaints of nausea and vomiting today. He states that he has had this in the past and has been ongoing for over a month. He states that there has been blood in his vomit. He had 4 bowel movements today which is normal for him. Denies any rectal bleeding. He states in the past he was told this is related to his marijuana smoking. Patient states that he smokes a lot of marijuana about a gram a day. Patient was told to follow up with GI but did not. No previous abdominal surgeries. He also has a history of pancreatitis. He is asking for a work note so he he doesn't lose his new job. -: days(s) (1) Location: abdomen (Epigastric) Severity scale (1-10): 0 Consistency: now resolved Associated Symptoms: nausea/vomiting Treatments Prior to Arrival: none - Related Data Home Medications Medication Instructions Recorded Confirmed Citalopram Hydrobromide [CeleXA] 40 mg PO DAILY 02/04/17 10/29/21 OXcarbazepine [Trileptal] 600 mg PO BID 02/04/17 10/29/21 Dextroamphetamine/Amphetamine 30 mg PO TID 12/03/19 10/29/21 [Adderall] busPIRone HCL [Buspar] 30 mg PO BID 07/08/21 10/29/21 clonazePAM [KlonoPIN] 1 mg PO BID PRN 07/08/21 10/29/21 Esomeprazole Magnesium [NexIUM] 20 mg PO DAILY 10/29/21 10/29/21 Allergies Allergy/AdvReac Type Severity Reaction Status Date / Time erythromycin base Allergy Unknown Verified 10/29/21 08:35 [From Pediazole] Childhood Penicillins Allergy Rash all Verified 10/29/21 08:35 over body sulfisoxazole Allergy Unknown Verified 10/29/21 08:35 [From Pediazole] Childhood Review of Systems ROS Statement: Those systems with pertinent positive or pertinent negative responses have been documented in the HPI. ROS Other: All systems not noted in ROS Statement are negative. Past Medical History Past Medical History: Asthma, GERD/Reflux Additional Past Medical History / Comment(s): HX OF ASTHMA History of Any Multi-Drug Resistant Organisms: None Reported Past Surgical History: Adenoidectomy, Hernia Repair, Tonsillectomy Additional Past Surgical History / Comment(s): web foot repair Additional Past Anesthesia/Blood Transfusion Reaction / Comment(s): NEVER RECEIVED ANESTHESIA. Past Psychological History: Anxiety, Depression Smoking Status: Current every day smoker Past Alcohol Use History: None Reported Past Drug Use History: Marijuana - Past Family History Mother Family Medical History: No Reported History General Exam Limitations: no limitations General appearance: alert, in no apparent distress Head exam: Present: atraumatic Eye exam: Present: normal appearance. Absent: scleral icterus, conjunctival injection ENT exam: Present: mucous membranes moist Neck exam: Present: full ROM. Absent: meningismus Respiratory exam: Present: normal lung sounds bilaterally. Absent: respiratory distress, accessory muscle use Cardiovascular Exam: Present: regular rate GI/Abdominal exam: Present: soft, normal bowel sounds. Absent: distended, tenderness, rigid Extremities exam: Present: normal inspection, normal capillary refill. Absent: pedal edema Neurological exam: Present: alert, oriented X3 Psychiatric exam: Present: normal affect, normal mood Skin exam: Present: warm, dry, normal color. Absent: cyanosis, diaphoretic Course Vital Signs 10/29/21 07:50 Temperature 98.1 F Pulse Rate 74 Respiratory 18 Rate Blood Pressure 119/73 O2 Sat by Pulse 97 Oximetry Medical Decision Making - Medical Decision Making While awaiting patient's labs to be resulted for his nausea vomiting and abdominal pain, nurse advised me that he left, signing out AGAINST MEDICAL ADVICE. I have a low suspicion for any acute abdominal process. This is likely his cyclic vomiting syndrome as he has been told in the past. He was well-appearing and his vital signs are stable. Disposition Clinical Impression: Nausea & vomiting Disposition: Left Against Medical Advice Condition: Good Referrals: None,Stated [Primary Care Provider] - 1-2 days Time of Disposition: 10:46
[2021-10-29 11:10] LABS: ALT 27 U/L (4-49); AST 23 U/L (17-59); African American GFR (CKD) >90 (>60 ml/min/1.73 sqM); Albumin 4.3 g/dL (3.5-5.0); Alkaline Phosphatase 84 U/L (38-126); Amylase 63 U/L (30-110); Anion Gap 6 mmol/L; Blood Urea Nitrogen 17 mg/dL (9-20); Calcium 8.5 mg/dL (8.4-10.2); Carbon Dioxide 26 mmol/L (22-30); Chloride 105 mmol/L (98-107); Glucose 95 mg/dL (74-99); Lipase 102 U/L (23-300); Non-African American GFR(CKD) >90 (>60 ml/min/1.73 sqM); Potassium 4.5 mmol/L (3.5-5.1); Sodium 137 mmol/L (137-145); Total Bilirubin 0.3 mg/dL (0.2-1.3); Total Protein 6.7 g/dL (6.3-8.2)
[2021-10-29 11:14] LABS: Basophils % (A) 1 %; Eosinophils # (A) 0.1 k/uL (0-0.7); Eosinophils % (A) 1 %; HCT 45.2 % (39.0-53.0); HGB 15.6 gm/dL (13.0-17.5); Lymphocytes % (A) 29 %; MCH 29.9 pg (25.0-35.0); MCHC 34.5 g/dL (31.0-37.0); MCV 86.6 fL (80.0-100.0); Mean Platelet Volume 9.2; Monocytes # (A) 0.6 k/uL (0-1.0); Monocytes % (A) 8 %; Neutrophils % (A) 59 %; Platelet Count 216 k/uL (150-450); RBC 5.22 m/uL (4.30-5.90); RDW 13.9 % (11.5-15.5); WBC 6.8 k/uL (3.8-10.6)
== END 2021-10-29 10:46 | disposition left against medical advice (07) ==
LOC: EC 07:20
DX: R11.2 Nausea with vomiting, unspecified (principal); J45.909 Unspecified asthma, uncomplicated; K21.9 Gastro-esophageal reflux disease without esophagitis; F32.A Depression, unspecified; F41.9 Anxiety disorder, unspecified; F17.200 Nicotine dependence, unspecified, uncomplicated; F12.90 Cannabis use, unspecified, uncomplicated; Z79.899 Other long term (current) drug therapy
CPT/HCPCS: 36415; 80053; 82150; 83690; 85025; 99284

== ENCOUNTER 2022-01-20 06:26 | Emergency (ER) | payer OTHER ==
[2022-01-20 06:36] VITALS: BP 106/72; PULSE 71; RESP 19; TEMP 98.6
--- NOTE | 2022-01-20 07:16 | XR ---
EXAMINATION TYPE: XR lumbar spine 2 or 3V DATE OF EXAM: 01/20/2022 COMPARISON: 03/20/2021 HISTORY: Pain TECHNIQUE: 3 views FINDINGS: Lumbar vertebra have normal spacing and alignment. Posterior elements are intact. Sacroilia c joints are intact. IMPRESSION: Normal lumbar spine exam. No change.
--- NOTE | 2022-01-20 07:34 | ED ---
Back Pain HPI - General Chief Complaint: Back Pain/Injury Stated Complaint: lower back pain Time Seen by Provider: 01/20/22 06:44 Source: patient, RN notes reviewed Mode of arrival: ambulatory Limitations: no limitations - History of Present Illness Initial Comments: This a 31-year-old male presents emergency Department chief complaint of back pain. Patient states to 2 episodes of last few days of low back pain states that is sharp shooting pain and resolves. He states it felt like rating his leg. Denies any bowel bladder incontinence or retention or saddle anesthesias. Patient denies any fevers or chills no dysuria denies any significant trauma. Patient denies any history of back surgeries. - Related Data Home Medications Medication Instructions Recorded Confirmed Citalopram Hydrobromide [CeleXA] 40 mg PO DAILY 02/04/17 10/29/21 OXcarbazepine [Trileptal] 600 mg PO BID 02/04/17 10/29/21 Dextroamphetamine/Amphetamine 30 mg PO TID 12/03/19 10/29/21 [Adderall] busPIRone HCL [Buspar] 30 mg PO BID 07/08/21 10/29/21 clonazePAM [KlonoPIN] 1 mg PO BID PRN 07/08/21 10/29/21 Esomeprazole Magnesium [NexIUM] 20 mg PO DAILY 10/29/21 10/29/21 Previous Rx's Medication Instructions Recorded Cyclobenzaprine [Flexeril] 10 mg PO TID PRN #15 tab 01/20/22 predniSONE 50 mg PO DAILY #5 tab 01/20/22 Allergies Allergy/AdvReac Type Severity Reaction Status Date / Time erythromycin base Allergy Unknown Verified 01/20/22 06:36 [From Pediazole] Childhood Penicillins Allergy Rash all Verified 01/20/22 06:36 over body sulfisoxazole Allergy Unknown Verified 01/20/22 06:36 [From Pediazole] Childhood Review of Systems ROS Statement: Those systems with pertinent positive or pertinent negative responses have been documented in the HPI. ROS Other: All systems not noted in ROS Statement are negative. Past Medical History Past Medical History: Asthma, GERD/Reflux Additional Past Medical History / Comment(s): HX OF ASTHMA History of Any Multi-Drug Resistant Organisms: None Reported Past Surgical History: Adenoidectomy, Hernia Repair, Tonsillectomy Additional Past Surgical History / Comment(s): web foot repair Additional Past Anesthesia/Blood Transfusion Reaction / Comment(s): NEVER RECEIVED ANESTHESIA. Past Psychological History: Anxiety, Depression Smoking Status: Current every day smoker Past Alcohol Use History: None Reported Past Drug Use History: Marijuana - Past Family History Mother Family Medical History: No Reported History General Exam General appearance: alert, in no apparent distress Head exam: Present: atraumatic, normocephalic, normal inspection Eye exam: Present: normal appearance, PERRL, EOMI. Absent: scleral icterus, conjunctival injection, periorbital swelling ENT exam: Present: normal exam, mucous membranes moist Neck exam: Present: normal inspection, full ROM. Absent: tenderness, meningismus, lymphadenopathy Respiratory exam: Present: normal lung sounds bilaterally. Absent: respiratory distress, wheezes, rales, rhonchi, stridor Cardiovascular Exam: Present: regular rate, normal rhythm, normal heart sounds. Absent: systolic murmur, diastolic murmur, rubs, gallop, clicks GI/Abdominal exam: Present: soft, normal bowel sounds. Absent: distended, tenderness, guarding, rebound, rigid Extremities exam: Present: normal inspection, full ROM, normal capillary refill, other (Lower extremity strength equal bilaterally neurovascular intact equal clinical). Absent: tenderness, pedal edema, joint swelling, calf tenderness Back exam: Present: full ROM, tenderness, paraspinal tenderness. Absent: vertebral tenderness Course Vital Signs 01/20/22 06:31 Temperature 98.6 F Pulse Rate 71 Respiratory 19 Rate Blood Pressure 106/72 O2 Sat by Pulse 97 Oximetry Medical Decision Making - Medical Decision Making Patient x-rays unremarkable patient may have some mild lumbar radiculopathy he states he had some pain rating into his legs patient will be discharged in stable condition with follow-up return parameters were discussed. Patient has no red flag symptoms. Disposition Clinical Impression: Back pain Disposition: HOME SELF-CARE Condition: Stable Instructions (If sedation given, give patient instructions): Acute Low Back Pain (ED) Additional Instructions: Please return to the Emergency Department if symptoms worsen or any other con cerns. Prescriptions: Cyclobenzaprine [Flexeril] 10 mg PO TID PRN #15 tab PRN Reason: Muscle Spasm predniSONE 50 mg PO DAILY #5 tab Is patient prescribed a controlled substance at d/c from ED?: No Referrals: None,Stated [Primary Care Provider] - 1-2 days Time of Disposition: 07:34
== END 2022-01-20 07:40 | disposition home or self-care (01) ==
LOC: EC 06:26
DX: M54.50 Low back pain, unspecified (principal); J45.909 Unspecified asthma, uncomplicated; K21.9 Gastro-esophageal reflux disease without esophagitis; Z79.83 Long term (current) use of bisphosphonates; F17.200 Nicotine dependence, unspecified, uncomplicated; Z88.0 Allergy status to penicillin; Z88.6 Allergy status to analgesic agent; Z88.2 Allergy status to sulfonamides
CPT/HCPCS: 72100

== ENCOUNTER 2022-11-20 05:18 | Emergency (ER) | payer OTHER ==
[2022-11-20 05:25] VITALS: RESP 18
[2022-11-20] MEDS ORDERED: ONDANSETRON 4 MG/2 ML VIAL IVP STA (06:14)
[2022-11-20] MEDS ORDERED: SODIUM CHLORIDE 0.9% 2,000 ML IV STA (06:14)
--- NOTE | 2022-11-20 06:23 | ED ---
General Adult HPI - General Chief complaint: Abdominal Pain Stated complaint: Vomiting, diarreha Time Seen by Provider: 11/20/22 06:02 Source: patient, RN notes reviewed Mode of arrival: ambulatory Limitations: no limitations - History of Present Illness Initial comments: Patient is a 32 year old male presenting to the ER with a chief complaint of vomiting and diarrhea. pt states this has been occurring since 11/16/22. He has not been able to keep anything down and states he feels very dehydrated. He denies any blood in his vomit or diarrhea and describes it as a bile looking color. He states he has been taking his 's Zofran at home with some relief. Pt admits to smoking about 10 joints of marijuana per day and is currently trying to cut back. pt reports starting Risperdal 0.5mg about 13 days ago, he stopped taking it 11/18/22. He contacted his psychiatrist who suggested he be seen in the ER for his symptoms. Denies shortness of breath or chest pain. - Related Data Home Medications Medication Instructions Recorded Confirmed Citalopram Hydrobromide [CeleXA] 40 mg PO DAILY 02/04/17 10/29/21 OXcarbazepine [Trileptal] 600 mg PO BID 02/04/17 10/29/21 Dextroamphetamine/Amphetamine 30 mg PO TID 12/03/19 10/29/21 [Adderall] busPIRone HCL [Buspar] 30 mg PO BID 07/08/21 10/29/21 clonazePAM [KlonoPIN] 1 mg PO BID PRN 07/08/21 10/29/21 Esomeprazole Magnesium [NexIUM] 20 mg PO DAILY 10/29/21 10/29/21 Previous Rx's Medication Instructions Recorded Cyclobenzaprine [Flexeril] 10 mg PO TID PRN #15 tab 01/20/22 predniSONE 50 mg PO DAILY #5 tab 01/20/22 Allergies Allergy/AdvReac Type Severity Reaction Status Date / Time erythromycin base Allergy Unknown Verified 11/20/22 05:25 [From Pediazole] Childhood Penicillins Allergy Rash all Verified 11/20/22 05:25 over body sulfisoxazole Allergy Unknown Verified 11/20/22 05:25 [From Pediazole] Childhood Review of Systems ROS Statement: Those systems with pertinent positive or pertinent negative responses have been documented in the HPI. ROS Other: All systems not noted in ROS Statement are negative. Past Medical History Past Medical History: Asthma, GERD/Reflux Additional Past Medical History / Comment(s): HX OF ASTHMA History of Any Multi-Drug Resistant Organisms: None Reported Past Surgical History: Adenoidectomy, Hernia Repair, Tonsillectomy Additional Past Surgical History / Comment(s): web foot repair Additional Past Anesthesia/Blood Transfusion Reaction / Comment(s): NEVER RECEIVED ANESTHESIA. Past Psychological History: Anxiety, Depression Smoking Status: Current every day smoker Past Alcohol Use History: None Reported Past Drug Use History: Marijuana - Past Family History Mother Family Medical History: No Reported History General Exam Limitations: no limitations General appearance: alert, in no apparent distress Head exam: Present: atraumatic, normocephalic, normal inspection Eye exam: Present: normal appearance, PERRL, EOMI. Absent: scleral icterus, conjunctival injection, periorbital swelling ENT exam: Present: normal exam, normal oropharynx, mucous membranes moist Neck exam: Present: normal inspection, full ROM. Absent: tenderness, meningismu s, lymphadenopathy Respiratory exam: Present: normal lung sounds bilaterally. Absent: respiratory distress, wheezes, rales, rhonchi, stridor Cardiovascular Exam: Present: regular rate, normal rhythm, normal heart sounds. Absent: systolic murmur, diastolic murmur, rubs, gallop, clicks GI/Abdominal exam: Present: soft, normal bowel sounds. Absent: distended, tenderness, guarding, rebound, rigid Course Vital Signs 11/20/22 05:22 Temperature 97.7 F Pulse Rate 87 Respiratory 18 Rate Blood Pressure 121/81 O2 Sat by Pulse 97 Oximetry Medical Decision Making - Medical Decision Making Was pt. sent in by a medical professional or institution (, PA, RN ENT, urgent care, hospital, or [place] [facility] facility...) When possible be specific @ -No Did you speak to anyone other than the patient for history (EMS, parent, family, police, friend...)? What history was obtained from this source @ -No Did you review nursing and triage notes (agree or disagree)? Why? @ -I reviewed and agree with nursing and triage notes Were old charts reviewed (outside hosp., previous admission, EMS record, old EKG, old radiological studies, urgent care reports/EKG's, [place] [facility] facility records)? Report findings @ -Reviewed prior laboratory studies Differential Diagnosis (chest pain, altered mental status, abdominal pain women, abdominal pain men, vaginal bleeding, weakness, fever, dyspnea, syncope, headache, dizziness, GI bleed, back pain, seizure, CVA, palpatations, mental health, musculoskeletal)? @ -Differential Abdominal Pain Men: Appendicitis, cholecystitis, diverticulosis, ischemic bowel, pancreatitis, hepatitis, UTI, gastroenteritis, AAA, incarcerated hernia, bowel obstruction, constipation, inflammatory bowel, hepatitis, peptic ulcer disease, splenic infarction, perforated viscus, testicular torsion, this is not meant to be an all-inclusive listle EKG interpreted by me (3pts min.). @ -None X-rays interpreted by me (1pt min.). @ -None done CT interpreted by me (1pt min.). @ -None done U/S interpreted by me (1pt. min.). @ -None done What testing was considered but not performed or refused? (CT, X-rays, U/S, labs)? Why? @ -None What meds were considered but not given or refused? Why? @ -None Did you discuss the management of the patient with other professionals (professionals i.e. , PA, RN ENT, lab, RT, psych nurse, school social worker, auto phone installer, teacher, strategic intelligence officer, shelter case manager)? Give summary @ -No Was smoking cessation discussed for >3mins.? @ -I discussed smoking cessation for greater than 3 minutes. The risk of smoking were discussed with the patient including but not limited to risks of cancer, stroke, coronary artery disease and COPD. Also discussed with patient were multiple methods of quitting smoking. Lastly we discussed the financial cost of smoking. Was critical care preformed (if so, how long)? @ -No Were there social determinants of health that impacted care today? How? (Homelessness, low income, unemployed, alcoholism, drug addiction, transportat ion, low edu. Level, literacy, decrease access to med. care, detention, rehab)? @ -No Was there de-escalation of care discussed even if they declined (Discuss DNR or withdrawal of care, Hospice)? DNR status @ -No What co-morbidities impacted this encounter? (DM, HTN, Smoking, COPD, CAD, Cancer, CVA, ARF, Chemo, Hep., AIDS, mental health diagnosis, sleep apnea, morbid obesity)? @ -Psychiatric history, drug abuse Was patient admitted / discharged? Hospital course, mention meds given and r oute, prescriptions, significant lab abnormalities, going to OR and other pertinent info. @ -Discharge patient was well hydrated, given antiemetics and feels improved. He did have mild hyponatremia patient will have recheck of his potassium he is advised to discontinue marijuana use. Undiagnosed new problem with uncertain prognosis? @ -No Drug Therapy requiring intensive monitoring for toxicity (Heparin, Nitro, Insulin, Cardizem)? @ -No Were any procedures done? @ -No Diagnosis/symptom? @ -Nausea vomiting, hyponatremia Acute, or Chronic, or Acute on Chronic? @ -Acute Uncomplicated (without systemic symptoms) or Complicated (systemic symptoms)? @ -, Complicated Side effects of treatment? @ -No Exacerbation, Progression, or Severe Exacerbation? @ -No Poses a threat to life or bodily function? How? (Chest pain, USA, CT, pneumonia, PE, COPD, DKA, ARF, appy, cholecystitis, CVA, Diverticulitis, Homicidal, Suicidal, threat to staff... and all critical care pts) @ -No - Lab Data Result diagrams: 11/20/22 06:16 11/20/22 06:16 Lab Results 11/20/22 11/20/22 Range/Units 06:16 06:16 WBC 5.8 (3.8-10.6) k/uL RBC 4.82 (4.30-5.90) m/uL Hgb 14.4 (13.0-17.5) gm/dL Hct 41.1 (39.0-53.0) % MCV 85.3 (80.0-100.0) fL MCH 30.0 (25.0-35.0) pg MCHC 35.1 (31.0-37.0) g/dL RDW 13.7 (11.5-15.5) % Plt Count 125 L (150-450) k/uL MPV 8.6 Neutrophils % 71 % Lymphocytes % 16 % Monocytes % 11 % Eosinophils % 0 % Basophils % 0 % Neutrophils # 4.1 (1.3-7.7) k/uL Lymphocytes # 0.9 L (1.0-4.8) k/uL Monocytes # 0.6 (0-1.0) k/uL Eosinophils # 0.0 (0-0.7) k/uL Basophils # 0.0 (0-0.2) k/uL Sodium 126 L (137-145) mmol/L Potassium 3.3 L (3.5-5.1) mmol/L Chloride 96 L (98-107) mmol/L Carbon Dioxide 22 (22-30) mmol/L Anion Gap 8 mmol/L BUN 14 (9-20) mg/dL Creatinine 0.70 (0.66-1.25) mg/dL Est GFR (CKD-EPI)AfAm >90 (>60 ml/min/1.73 sqM) Est GFR (CKD-EPI)NonAf >90 (>60 ml/min/1.73 sqM) Glucose 90 (74-99) mg/dL Calcium 7.6 L (8.4-10.2) mg/dL Total Bilirubin 0.4 (0.2-1.3) mg/dL AST 36 (17-59) U/L ALT 36 (4-49) U/L Alkaline Phosphatase 95 (38-126) U/L Total Protein 6.3 (6.3-8.2) g/dL Albumin 3.9 (3.5-5.0) g/dL Lipase 120 (23-300) U/L Disposition Clinical Impression: Dehydration, Nausea & vomiting, Hyponatremia Disposition: HOME SELF-CARE Condition: Stable Instructions (If sedation given, give patient instructions): Abdominal Pain (ED) Additional Instructions: Please return to the Emergency Department if symptoms worsen or any other concerns. Is patient prescribed a controlled substance at d/c from ED?: No Referrals: Nonstaff,Physician [Primary Care Provider] - 1-2 days Time of Disposition: 08:06
[2022-11-20 06:30] LABS: Basophils % (A) 0 %; Eosinophils % (A) 0 %; HCT 41.1 % (39.0-53.0); HGB 14.4 gm/dL (13.0-17.5); Lymphocytes # (A) 0.9 k/uL (1.0-4.8); Lymphocytes % (A) 16 %; MCHC 35.1 g/dL (31.0-37.0); MCV 85.3 fL (80.0-100.0); Mean Platelet Volume 8.6; Monocytes # (A) 0.6 k/uL (0-1.0); Monocytes % (A) 11 %; Neutrophils # (A) 4.1 k/uL (1.3-7.7); Neutrophils % (A) 71 %; Platelet Count 125 k/uL (150-450); RBC 4.82 m/uL (4.30-5.90); RDW 13.7 % (11.5-15.5); WBC 5.8 k/uL (3.8-10.6)
[2022-11-20 06:31] LABS: ALT 36 U/L (4-49); AST 36 U/L (17-59); African American GFR (CKD) >90 (>60 ml/min/1.73 sqM); Albumin 3.9 g/dL (3.5-5.0); Alkaline Phosphatase 95 U/L (38-126); Anion Gap 8 mmol/L; Blood Urea Nitrogen 14 mg/dL (9-20); Calcium 7.6 mg/dL (8.4-10.2); Carbon Dioxide 22 mmol/L (22-30); Chloride 96 mmol/L (98-107); Glucose 90 mg/dL (74-99); Lipase 120 U/L (23-300); Non-African American GFR(CKD) >90 (>60 ml/min/1.73 sqM); Potassium 3.3 mmol/L (3.5-5.1); Sodium 126 mmol/L (137-145); Total Bilirubin 0.4 mg/dL (0.2-1.3); Total Protein 6.3 g/dL (6.3-8.2)
[2022-11-20] MEDS ORDERED: METOCLOPRAMIDE 5 MG/ML 2 ML VIAL IVP STA (07:07)
[2022-11-20] MEDS ORDERED: diphenhydrAMINE 50 MG/ML 1 ML VIAL IVP STA (07:07)
[2022-11-20 08:52] VITALS: BP 118/76; PULSE 72; TEMP 98.2
== END 2022-11-20 08:52 | disposition home or self-care (01) ==
LOC: EC 05:18
DX: R11.2 Nausea with vomiting, unspecified (principal); E86.0 Dehydration; E87.1 Hypo-osmolality and hyponatremia; F32.A Depression, unspecified; F41.9 Anxiety disorder, unspecified; J45.909 Unspecified asthma, uncomplicated; K21.9 Gastro-esophageal reflux disease without esophagitis; F12.90 Cannabis use, unspecified, uncomplicated; F17.200 Nicotine dependence, unspecified, uncomplicated; Z79.52 Long term (current) use of systemic steroids; Z79.899 Other long term (current) drug therapy; Z88.0 Allergy status to penicillin; Z88.1 Allergy status to other antibiotic agents; Z88.2 Allergy status to sulfonamides
CPT/HCPCS: 36415; 80053; 83690; 85025; 99284; 96374; 96375 ×2; 96361 ×2; J1200; J2765; J2405

== ENCOUNTER 2023-02-06 07:30 | Emergency (ER) | payer OTHER ==
[2023-02-06 07:34] VITALS: RESP 18
[2023-02-06] MEDS ORDERED: KETOROLAC 15 MG/ML 1 ML VIAL IM STA (07:40)
--- NOTE | 2023-02-06 07:54 | ED ---
General Adult HPI - General Chief complaint: Upper Respiratory Infection Stated complaint: cough, lt side pain Time Seen by Provider: 02/06/23 07:35 Source: patient, RN notes reviewed, old records reviewed Mode of arrival: ambulatory Limitations: no limitations - History of Present Illness Initial comments: This is a 32-year-old male who presents to the emergency department complaining of a cough and he states he hurt his left side cough. Patient states anytime he takes a deep breath or coughs it hurts. Patient denies any current shortness of breath. Patient states when he gets coughing he has a hard time getting is full breath. Patient denies any fever or chills. Patient denies abdominal pain palpitations nausea vomiting. Patient denies any lightheadedness or dizziness. Patient denies any facial tenderness. - Related Data Home Medications Medication Instructions Recorded Confirmed Citalopram Hydrobromide [CeleXA] 40 mg PO DAILY 02/04/17 10/29/21 OXcarbazepine [Trileptal] 600 mg PO BID 02/04/17 10/29/21 Dextroamphetamine/Amphetamine 30 mg PO TID 12/03/19 10/29/21 [Adderall] busPIRone HCL [Buspar] 30 mg PO BID 07/08/21 10/29/21 clonazePAM [KlonoPIN] 1 mg PO BID PRN 07/08/21 10/29/21 Esomeprazole Magnesium [NexIUM] 20 mg PO DAILY 10/29/21 10/29/21 Previous Rx's Medication Instructions Recorded Cyclobenzaprine [Flexeril] 10 mg PO TID PRN #15 tab 01/20/22 predniSONE 50 mg PO DAILY #5 tab 01/20/22 Ibuprofen [Motrin] 600 mg PO Q6HR PRN #20 tab 02/06/23 Allergies Allergy/AdvReac Type Severity Reaction Status Date / Time erythromycin base Allergy Unknown Verified 02/06/23 07:35 [From Pediazole] Childhood Penicillins Allergy Rash all Verified 02/06/23 07:35 over body sulfisoxazole Allergy Unknown Verified 02/06/23 07:35 [From Pediazole] Childhood Review of Systems ROS Statement: Those systems with pertinent positive or pertinent negative responses have been documented in the HPI. ROS Other: All systems not noted in ROS Statement are negative. Past Medical History Past Medical History: Asthma, GERD/Reflux Additional Past Medical History / Comment(s): HX OF ASTHMA History of Any Multi-Drug Resistant Organisms: None Reported Past Surgical History: Adenoidectomy, Hernia Repair, Tonsillectomy Additional Past Surgical History / Comment(s): web foot repair Additional Past Anesthesia/Blood Transfusion Reaction / Comment(s): NEVER RECEIVED ANESTHESIA. Past Psychological History: Anxiety, Depression Smoking Status: Current every day smoker Past Alcohol Use History: None Reported Past Drug Use History: Marijuana - Past Family History Mother Family Medical History: No Reported History General Exam - General Exam Comments Initial Comments: GENERAL: Patient is well-developed and well-nourished. Patient is nontoxic and well- hydrated and is in no acute distress. ENT: Neck is soft and supple. No significant lymphadenopathy is noted. Oropharynx is clear. Moist mucous membranes. Neck has full range of motion without eliciting any pain. EYES: The sclera were anicteric and conjunctiva were pink and moist. Extraocular movements were intact and pupils were equal round and reactive to light. Eyelids were unremarkable. PULMONARY: Unlabored respirations. Good breath sounds bilaterally. No audible rales rhonchi or wheezing was noted. CARDIOVASCULAR: There is a regular rate and rhythm without any murmurs gallops or rubs. Patient has reproducible left sided lateral chest tenderness on palpation. ABDOMEN: Soft and nontender with normal bowel sounds. SKIN: Skin is clear with no lesions or rashes and otherwise unremarkable. NEUROLOGIC: Patient is alert and oriented x3. Cranial nerves II through XII are grossly intact. Motor and sensory are also intact. Normal speech, volume and content. Symmetrical smile. MUSCULOSKELETAL: Normal extremities with adequate strength and full range of motion. LYMPHATICS: No significant lymphadenopathy is noted PSYCHIATRIC: Normal psychiatric evaluation. Limitations: no limitations Course Vital Signs 02/06/23 02/06/23 02/06/23 07:31 08:25 08:26 Temperature 98.7 F 97.9 F Pulse Rate 62 65 Respiratory 18 18 18 Rate Blood Pressure 130/80 124/70 O2 Sat by Pulse 99 98 Oximetry Medical Decision Making - Medical Decision Making Was pt. sent in by a medical professional or institution (, PA, BROOM MACHINE OPERATOR, urgent care, hospital, or prison...) When possible be specific @ -No Did you speak to anyone other than the patient for history (EMS, parent, family, police, friend...)? What history was obtained from this source @ -No Did you review nursing and triage notes (agree or disagree)? Why? @ -I reviewed and agree with nursing and triage notes Were old charts reviewed (outside hosp., previous admission, EMS record, old EKG, old radiological studies, urgent care reports/EKG's, prison records)? Report findings @ -I reviewed prior charts prior lab work prior x-rays on this patient Differential Diagnosis (chest pain, altered mental status, abdominal pain women, abdominal pain men, vaginal bleeding, weakness, fever, dyspnea, syncope, headache, dizziness, GI bleed, back pain, seizure, CVA, palpatations, mental health, musculoskeletal)? @ -Bronchitis, pneumonia, upper respiratory infection, sinusitis, this is not an all inclusive list EKG interpreted by me (3pts min.). @ -As above X-rays interpreted by me (1pt min.). @ -Chest x-ray Shows no acute abnormality CT interpreted by me (1pt min.). @ -None done U/S interpreted by me (1pt. min.). @ -None done What testing was considered but not performed or refused? (CT, X-rays, U/S, labs)? Why? @ -None What meds were considered but not given or refused? Why? @ -None Did you discuss the management of the patient with other professionals (professionals i.e. , PA, BROOM MACHINE OPERATOR, lab, RT, psych nurse, social work manager, customer service leader, teacher, maritime officer, patient case manager)? Give summary @ -No Was smoking cessation discussed for >3mins.? @ -No Was critical care preformed (if so, how long)? @ -No Were there social determinants of health that impacted care today? How? (Homelessness, low income, unemployed, alcoholism, drug addiction, transportation, low edu. Level, literacy, decrease access to med. care, nursing home, rehab)? @ -No Was there de-escalation of care discussed even if they declined (Discuss DNR or withdrawal of care, Hospice)? DNR status @ -No What co-morbidities impacted this encounter? (DM, HTN, Smoking, COPD, CAD, Cancer, CVA, ARF, Chemo, Hep., AIDS, mental health diagnosis, sleep apnea, morbid obesity)? @ -None Was patient admitted / discharged? Hospital course, mention meds given and route, prescriptions, significant lab abnormalities, going to OR and other pertinent info. @ -Patient was given a shot of Toradol for the rib pain. Patient pain was reproducible. Patient did state Toradol helped. Patient's chest x-ray was normal. Undiagnosed new problem with uncertain prognosis? @ -No Drug Therapy requiring intensive monitoring for toxicity (Heparin, Nitro, Insulin, Cardizem)? @ -No Were any procedures done? @ -No Diagnosis/symptom? @ -Upper Respiratory infection Acute, or Chronic, or Acute on Chronic? @ -Acute Uncomplicated (without systemic symptoms) or Complicated (systemic symptoms)? @ -Uncomplicated Side effects of treatment? @ -No Exacerbation, Progression, or Severe Exacerbation? @ -No Poses a threat to life or bodily function? How? (Chest pain, [place], [place], pneumonia, PE, COPD, DKA, ARF, appy, cholecystitis, CVA, Diverticulitis, Homicidal, Suicidal, threat to staff... and all critical care pts) @ -No Diagnosis/symptom? @ -Chest wall pain Acute, or Chronic, or Acute on Chronic? @ -Acute Uncomplicated (without systemic symptoms) or Complicated (systemic symptoms)? @ -Uncomplicated Side effects of treatment? @ -none Exacerbation, Progression, or Severe Exacerbation] @ -no Poses a threat to life or bodily function? @ -no Disposition Clinical Impression: Acute upper respiratory infection, Chest wall pain Disposition: HOME SELF-CARE Prescriptions: Ibuprofen [Motrin] 600 mg PO Q6HR PRN #20 tab PRN Reason: For pain Is patient prescribed a controlled substance at d/c from ED?: No Referrals: None,Stated [Primary Care Provider] - 1-2 days Time of Disposition: 07:51
--- NOTE | 2023-02-06 08:05 | XR ---
EXAMINATION TYPE: XR chest 2V DATE OF EXAM: 02/06/2023 8:01 AM COMPARISON: Chest radiographs from 10/25/2013 TECHNIQUE: XR chest 2V Frontal and lateral views of the chest. CLINICAL INDICATION:Male, 32 years old with history of Difficulty breathing ; FINDINGS: Lungs/Pleura: There is no evidence of pleural effusion, focal consolidation, or pneumothorax. Pulmonary vascularity: Unremarkable. Heart/mediastinum: Cardiomediastinal silhouette is unremarkable. Musculoskeletal: No acute osseous pathology. IMPRESSION: No acute cardiopulmonary disease/process.
[2023-02-06 08:27] VITALS: BP 124/70; PULSE 65; TEMP 97.9
== END 2023-02-06 08:34 | disposition home or self-care (01) ==
LOC: EC 07:30
DX: R07.89 Other chest pain (principal); J06.9 Acute upper respiratory infection, unspecified; J45.909 Unspecified asthma, uncomplicated; K21.9 Gastro-esophageal reflux disease without esophagitis; F41.9 Anxiety disorder, unspecified; F32.A Depression, unspecified; F17.200 Nicotine dependence, unspecified, uncomplicated; F12.90 Cannabis use, unspecified, uncomplicated; Z88.0 Allergy status to penicillin; Z88.1 Allergy status to other antibiotic agents; Z88.2 Allergy status to sulfonamides; Z79.899 Other long term (current) drug therapy
CPT/HCPCS: 71046; 99283; 96372; J1885

== ENCOUNTER 2023-10-14 12:56 | Emergency (ER) | payer OTHER ==
[2023-10-14] MEDS: LIDOCAINE 4% PATCH TOPICAL STA (13:39)
[2023-10-14] MEDS: HYDROcodone/APAP 5-325MG 1 EACH TAB PO STA (13:42)
--- NOTE | 2023-10-14 14:26 | XR ---
EXAMINATION TYPE: XR shoulder complete 3 views RT DATE OF EXAM: 10/14/2023 Comparison: None Clinical History: 33-year-old male with pain Findings: AC joint appears intact. Subacromial space is preserved. No tendinous or bursal calcifications. No ac tlingit & haida fracture, subluxation, dislocation. Impression: No acute osseous abnormality seen.
--- NOTE | 2023-10-14 14:39 | ED ---
General Adult HPI - General Chief complaint: Extremity Problem,Nontraumatic Stated complaint: R shoulder pain Time Seen by Provider: 10/14/23 13:20 Source: patient, RN notes reviewed, old records reviewed Mode of arrival: ambulatory Limitations: no limitations - History of Present Illness Initial comments: Patient is a 33-year-old male presents emergency department complaining of acute on chronic right shoulder and back pain. Patient does do manual labor for living. Has pain over the right trapezius muscle. Has been ongoing. Worse with movements of the back as well as arm as well as with carrying heavy equipment. Has no other acute complaints at this time. No radiation of the pain. Presents for further evaluation. Has attempted muscle relaxers at home without much success. - Related Data Home Medications Medication Instructions Recorded Confirmed Citalopram Hydrobromide [CeleXA] 40 mg PO DAILY 02/04/17 10/14/23 OXcarbazepine [Trileptal] 300 mg PO BID 02/04/17 10/14/23 busPIRone HCL [Buspar] 30 mg PO BID 07/08/21 10/14/23 ALPRAZolam [Xanax] 1 mg PO BID PRN 10/14/23 10/14/23 Albuterol Inhaler [Ventolin Hfa 1 puff INHALATION RT-Q4H PRN 10/14/23 10/14/23 Inhaler] Cetirizine HCl [Zyrtec] 10 mg PO DAILY PRN 10/14/23 10/14/23 Dextroamphetamine/Amphetamine 20 mg PO W/LUNCH 10/14/23 10/14/23 [Adderall] Dextroamphetamine/Amphetamine 40 mg PO DAILY 10/14/23 10/14/23 [Adderall] Fluticasone Nasal [place] [Flonase 1 spray EA NOSTRIL DAILY PRN 10/14/23 10/14/23 Nasal [place]] Previous Rx's Medication Instructions Recorded Ibuprofen [Motrin] 600 mg PO Q6HR PRN #20 tab 02/06/23 Lidocaine 4% Patch 1 patch TOPICAL DAILY PRN 14 Days 10/14/23 #14 patch Allergies Allergy/AdvReac Type Severity Reaction Status Date / Time erythromycin base Allergy Unknown Verified 10/14/23 13:50 [From Pediazole] Childhood Penicillins Allergy Rash all Verified 10/14/23 13:50 over body sulfisoxazole Allergy Unknown Verified 10/14/23 13:50 [From Pediazole] Childhood Review of Systems ROS Statement: Those systems with pertinent positive or pertinent negative responses have been documented in the HPI. Review of Systems: CONST: Denies fever EYES: Denies blurry vision ENT: Denies nasal congestion C/V: Denies Chest pain RESP: Denies shortness of breath GI: Denies abdominal pain : Denies dysuria SKIN: Denies rash. MSK: Endorses right shoulder pain NEURO: Denies headache ROS Other: All systems not noted in ROS Statement are negative. Past Medical History Past Medical History: Asthma, GERD/Reflux Additional Past Medical History / Comment(s): HX OF ASTHMA History of Any Multi-Drug Resistant Organisms: None Reported Past Surgical History: Adenoidectomy, Hernia Repair, Tonsillectomy Additional Past Surgical History / Comment(s): web foot repair Additional Past Anesthesia/Blood Transfusion Reaction / Comment(s): NEVER RECEIVED ANESTHESIA. Past Psychological History: Anxiety, Depression Smoking Status: Current every day smoker Past Alcohol Use History: None Reported Past Drug Use History: Marijuana - Past Family History Mother Family Medical History: No Reported History General Exam - General Exam Comments Initial Comments: General: Appears in no acute distress. HEAD: Normal with no signs of head trauma. EYES: EOMI. ENT: Hearing grossly intact. RESPIRATORY: No respiratory distress. C/V: Regular rate and rhythm. ABD: Abdomen is nondistended. EXT: Tenderness to palpation of the right trapezius muscle. Pain with passive range of motion of the right shoulder in the trapezius region. No other obvious deformity or injury. No midline spinal tenderness to palpation. SKIN: No rashes or lesions observed on exposed skin. NEURO: Alert and oriented. Limitations: no limitations Course Vital Signs 10/14/23 12:57 Temperature 98.1 F Pulse Rate 88 Respiratory 16 Rate Blood Pressure 118/80 O2 Sat by Pulse 97 Oximetry Medical Decision Making - Medical Decision Making Was pt. sent in by a medical professional or institution ([facility], NON LICENSED NUCLEAR PLANT OPERATOR, urgent care, hospital, or half-way...) When possible be specific @ -No Did you speak to anyone other than the patient for history (EMS, parent, family, police, friend...)? What history was obtained from this source @ -No Did you review nursing and triage notes (agree or disagree)? Why? @ -I reviewed and agree with nursing and triage notes Were old charts reviewed (outside hosp., previous admission, EMS record, old EKG, old radiological studies, urgent care reports/EKG's, half-way records)? Report findings @ -No old charts were reviewed Differential Diagnosis (chest pain, altered mental status, abdominal pain women, abdominal pain men, vaginal bleeding, weakness, fever, dyspnea, syncope, headache, dizziness, GI bleed, back pain, seizure, CVA, palpatations, mental health, musculoskeletal)? @ -Differential Musculoskeletal Muscular strain, contusion, ligament sprain, fracture, arthritis, septic arthritis, bursitis, cellulitis, muscle spasm, nerve compression, DVT, arterial occlusion, herpes zoster, electrolyte abnormality, tumor.... This is not meant to be in all inclusive list EKG interpreted by me (3pts min.). @ -None done X-rays interpreted by me (1pt min.). @ -Right shoulder x-ray negative for any obvious traumatic injury. CT interpreted by me (1pt min.). @ -None done U/S interpreted by me (1pt. min.). @ -None done What testing was considered but not performed or refused? (CT, X-rays, U/S, labs)? Why? @ -None What meds were considered but not given or refused? Why? @ -None Did you discuss the management of the patient with other professionals (professionals i.e. , PA, NON LICENSED NUCLEAR PLANT OPERATOR, lab, RT, psych nurse, manager social responsibility, irrigator, teacher, vice squad police officer, financial project manager)? Give summary @ -No Was smoking cessation discussed for >3mins.? @ -No Was critical care preformed (if so, how long)? @ -No Were there social determinants of health that impacted care today? How? (Homelessness, low income, unemployed, alcoholism, drug addiction, transportation, low edu. Level, literacy, decrease access to med. care, shelter, rehab)? @ -No Was there de-escalation of care discussed even if they declined (Discuss DNR or withdrawal of care, Hospice)? DNR status @ -No What co-morbidities impacted this encounter? (DM, HTN, Smoking, COPD, CAD, Cancer, CVA, ARF, Chemo, Hep., AIDS, mental health diagnosis, sleep apnea, morbid obesity)? @ -None Was patient admitted / discharged? Hospital course, mention meds given and route, prescriptions, significant lab abnormalities, going to OR and other pertinent info. @ -Based on patient's presentation and physical exam, presents emergency department complaining of right shoulder pain is musculoskeletal in nature. Seems to be mostly in the right trapezius muscle. We will obtain x-ray and symptomatically treat the patient with oral analgesia medications and a lidocaine patch. Vital signs within acceptable limits. Patient was in agreement this plan. Imaging unremarkable. On reevaluation, patient's symptoms have mostly resolved. I discussed the results of the x-ray. Diagnosis is muscle strain of the trapezius muscle. Strict return precautions discussed. Patient was in agree ment with this plan. I will provide the patient with a prescription for lidocaine patch. I instructed the patient to follow up with their PCP in the next 1-3 days.. I explained that the patient should return to the emergency department if they experience any worsening symptoms. Strict return precautions were discussed with the patient. The patient expressed understanding of these instructions. I answered all questions that the patient had. The patient was discharged home in good condition with their prescriptions and follow up information. Undiagnosed new problem with uncertain prognosis? @ -No Drug Therapy requiring intensive monitoring for toxicity (Heparin, Nitro, Insulin, Cardizem)? @ -No Were any procedures done? @ -No Diagnosis/symptom? @ -Muscle strain, sprain Acute, or Chronic, or Acute on Chronic? @ -Acute Uncomplicated (without systemic symptoms) or Complicated (systemic symptoms)? @ -Uncomplicated Side effects of treatment? @ -No Exacerbation, Progression, or Severe Exacerbation? @ -No Poses a threat to life or bodily function? How? (Chest pain, USA, [place], pneumonia, PE, COPD, DKA, ARF, appy, cholecystitis, CVA, Diverticulitis, Homicidal, Suicidal, threat to staff... and all critical care pts) @ -No Disposition Clinical Impression: Muscle strain Disposition: HOME SELF-CARE Condition: Good Instructions (If sedation given, give patient instructions): Muscle Strain (ED) Prescriptions: Lidocaine 4% Patch 1 patch TOPICAL DAILY PRN 14 Days #14 patch PRN Reason: Pain Is patient prescribed a controlled substance at d/c from ED?: No Referrals: Cassie Whiting MD [Primary Care Provider] - 1-2 days Time of Disposition: 14:38
[2023-10-14] MEDS: ACET/COD 300 MG/30 MG STARTER PACK 6 TAB BTL PO STA (14:46)
[2023-10-14 15:14] VITALS: BP 123/82; PULSE 69; RESP 18; TEMP 98
== END 2023-10-14 14:52 | disposition home or self-care (01) ==
LOC: EC 12:56
DX: S46.911A Strain of unspecified muscle, fascia and tendon at shoulder and upper arm level, right arm, initial encounter (principal); Z88.0 Allergy status to penicillin; Z88.2 Allergy status to sulfonamides; Z88.1 Allergy status to other antibiotic agents; F17.290 Nicotine dependence, other tobacco product, uncomplicated; F12.90 Cannabis use, unspecified, uncomplicated; X58.XXXA Exposure to other specified factors, initial encounter
CPT/HCPCS: 99283

== ENCOUNTER → 2023-10-17 | Outpatient (CLI) | payer OTHER ==
--- NOTE | 2023-10-27 19:36 | CT ---
EXAMINATION TYPE: CT shoulder RT w con DATE OF EXAM: 10/17/2023 COMPARISON: Radiographs 10/14/2023 HISTORY: 33-year-old male S46.811S STRAIN OF MUSC/FASC/TEND AT SHLDR/UP ARM, Rt side shoulder pain. TECHNIQUE: Contiguous axial scanning of the right shoulder performed with IV Contrast, patient inject ed with 100 mL of Isovue 300. Coronal/sagittal reconstructions performed. CT DLP: 335.7 mGycm Automated exposure control for dose reduction was used. FINDINGS: AC joint appears congruent and intact. Subacromial space is preserved. No os acromiale. No evident bu rsal effusion. Preserved bulk of the rotator cuff and other musculature of the shoulder. Preserved volume of the ro tator cuff tendons. No tendinous calcifications. The glenohumeral joint is intact. No significant joint effusion is seen. CT limited for assessment of the long head biceps tendon but appears to be satisfactory in the bicipi jeimy groove. No abnormal enhancing areas appreciated. IMPRESSION: NO SPECIFIC CT ABNORMALITY OF THE RIGHT SHOULDER.
== END | disposition home or self-care (01) ==
LOC: RADCTMAIN 16:07
PROVIDERS: ATTEND Family Medicine
DX: S46.811S Strain of other muscles, fascia and tendons at shoulder and upper arm level, right arm, sequela (principal)
CPT/HCPCS: 73201; Q9967

== ENCOUNTER 2023-10-19 02:13 | Emergency (ER) | payer OTHER ==
[2023-10-19 02:40] VITALS: BP 128/86; PULSE 78; RESP 18; TEMP 97.3
[2023-10-19] MEDS: LORazepam 1 MG TAB PO STA (02:43)
[2023-10-19] MEDS: ORPHENADRINE 30 MG/ML 2 ML VIAL IM STA (03:11)
--- NOTE | 2023-10-19 03:12 | ED ---
Anxiety HPI - General Chief Complaint: Anxiety Stated Complaint: Right shoulder numbness, anxiety, low sodium Time Seen by Provider: 10/19/23 03:11 Source: patient, RN notes reviewed Mode of arrival: ambulatory - History of Present Illness Initial Comments: 33-year-old male presented to the ER with a chief complaint of anxiety and tension. He states he is getting worked up outpatient for right shoulder pain and received CT on 10-17-2023, and is awaiting results. He denies any new injuries or traumas. He reports he is extremely anxious currently and normally takes Klonopin at home. Denies any SI or HI. He states he feels his neck is very tense due to the anxiety. He denies any fevers, chills, cough, congestion, chest pain, shortness of breath, abdominal pain, constipation/diarrhea, urinary complaints or peripheral edema. - Related Data Home Medications: Home Medications Medication Instructions Recorded Confirmed Citalopram Hydrobromide [CeleXA] 40 mg PO DAILY 02/04/17 10/14/23 OXcarbazepine [Trileptal] 300 mg PO BID 02/04/17 10/14/23 busPIRone HCL [Buspar] 30 mg PO BID 07/08/21 10/14/23 ALPRAZolam [Xanax] 1 mg PO BID PRN 10/14/23 10/14/23 Albuterol Inhaler [Ventolin Hfa 1 puff INHALATION RT-Q4H PRN 10/14/23 10/14/23 Inhaler] Cetirizine HCl [Zyrtec] 10 mg PO DAILY PRN 10/14/23 10/14/23 Dextroamphetamine/Amphetamine 20 mg PO W/LUNCH 10/14/23 10/14/23 [Adderall] Dextroamphetamine/Amphetamine 40 mg PO DAILY 10/14/23 10/14/23 [Adderall] Fluticasone Nasal [place] [Flonase 1 spray EA NOSTRIL DAILY PRN 10/14/23 10/14/23 Nasal [place]] Previous Rx's Medication Instructions Recorded Ibuprofen [Motrin] 600 mg PO Q6HR PRN #20 tab 02/06/23 Lidocaine 4% Patch 1 patch TOPICAL DAILY PRN 14 Days 10/14/23 #14 patch Allergies/Adverse Reactions: Allergies Allergy/AdvReac Type Severity Reaction Status Date / Time erythromycin base Allergy Unknown Verified 10/14/23 13:50 [From Pediazole] Childhood Penicillins Allergy Rash all Verified 10/14/23 13:50 over body sulfisoxazole Allergy Unknown Verified 10/14/23 13:50 [From Pediazole] Childhood Review of Systems ROS Statement: Those systems with pertinent positive or pertinent negative responses have been documented in the HPI. ROS Other: All systems not noted in ROS Statement are negative. Past Medical History Past Medical History: Asthma, GERD/Reflux Additional Past Medical History / Comment(s): HX OF ASTHMA History of Any Multi-Drug Resistant Organisms: None Reported Past Surgical History: Adenoidectomy, Hernia Repair, Tonsillectomy Additional Past Surgical History / Comment(s): web foot repair Additional Past Anesthesia/Blood Transfusion Reaction / Comment(s): NEVER RECEIVED ANESTHESIA. Past Psychological History: Anxiety, Depression Smoking Status: Current every day smoker Past Alcohol Use History: None Reported Past Drug Use History: Marijuana - Past Family History Mother Family Medical History: No Reported History General Exam Limitations: no limitations General appearance: alert, in no apparent distress Head exam: Present: atraumatic, normocephalic, normal inspection Eye exam: Present: normal appearance, PERRL, EOMI. Absent: scleral icterus, conjunctival injection, periorbital swelling Neck exam: Present: normal inspection. Absent: tenderness, meningismus, lymphadenopathy Respiratory exam: Present: normal lung sounds bilaterally. Absent: respiratory distress, wheezes, rales, rhonchi, stridor Cardiovascular Exam: Present: regular rate, normal rhythm, normal heart sounds. Absent: systolic murmur, diastolic murmur, rubs, gallop, clicks Neurological exam: Present: alert, oriented X3, CN II-XII intact Psychiatric exam: Present: anxious (mildly) Skin exam: Present: warm, dry, intact, normal color. Absent: rash Course Vital Signs 10/19/23 02:14 Temperature 97.3 F L Pulse Rate 78 Respiratory 18 Rate Blood Pressure 128/86 O2 Sat by Pulse 97 Oximetry Medical Decision Making - Medical Decision Making Was pt. sent in by a medical professional or institution (, [place], ROAD FREIGHT FIRER, urgent care, hospital, or group home...) When possible be specific @ -No Did you speak to anyone other than the patient for history (EMS, parent, family, police, friend...)? What history was obtained from this source @ -No Did you review nursing and triage notes (agree or disagree)? Why? @ -I reviewed and agree with nursing and triage notes Were old charts reviewed (outside hosp., previous admission, EMS record, old EKG, old radiological studies, urgent care reports/EKG's, group home records)? Report findings @ -No old charts were reviewed Differential Diagnosis (chest pain, altered mental status, abdominal pain women, abdominal pain men, vaginal bleeding, weakness, fever, dyspnea, syncope, headache, dizziness, GI bleed, back pain, seizure, CVA, palpatations, mental health, musculoskeletal)? @ -Differential Mental Health: Depression, anxiety, bipolar, psychosis, schizophrenia, borderline personality, situational depression, adjustment disorder, behavioral disorder, brain tumor, malingering, substance abuse, encephalopathy, medication reaction, dementia, hypothyroidism, degenerative neurologic disorder, lupus.... This is not meant to be all-inclusive list EKG interpreted by me (3pts min.). @ -None X-rays interpreted by me (1pt min.). @ -None done CT interpreted by me (1pt min.). @ -None done U/S interpreted by me (1pt. min.). @ -None done What testing was considered but not performed or refused? (CT, X-rays, U/S, labs)? Why? @ -None What meds were considered but not given or refused? Why? @ -None Did you discuss the management of the patient with other professionals (professionals i.e. , PA, ROAD FREIGHT FIRER, lab, RT, psych nurse, social sciences instructor, manager animation, teacher, chief information security officer, casework specialist)? Give summary @ -No Was smoking cessation discussed for >3mins.? @ -No Was critical care preformed (if so, how long)? @ -No Were there social determinants of health that impacted care today? How? (Homelessness, low income, unemployed, alcoholism, drug addiction, transportation, low edu. Level, literacy, decrease access to med. care, assisted, rehab)? @ -No Was there de-escalation of care discussed even if they declined (Discuss DNR or withdrawal of care, Hospice)? DNR status @ -No What co-morbidities impacted this encounter? (DM, HTN, Smoking, COPD, CAD, Cancer, CVA, ARF, Chemo, Hep., AIDS, mental health diagnosis, sleep apnea, morbid obesity)? @ -Anxiety Was patient admitted / discharged? Hospital course, mention meds given and route, prescriptions, significant lab abnormalities, going to OR and other pertinent info. @ -Discharge. 33-year-old male presenting to the ER with chief complaint of anxiety. History physical exam completed. Vitals stable. Patient in no signs of acute distress and nontoxic-appearing. Patient received by mouth 1 mg Ativan for anxiety. Upon reevaluation, patient complaining of tension to his right trapezius muscle patient received IM Norflex at that time. Upon reevaluation, patient resting comfortably in exam room in no signs of acute distress. Symptoms have improved. Patient would like to be discharged. Return parameters discussed. Patient discharged stable condition with follow-up to PCP. Patient verbally expressed understanding and agreement with care plan. Case discussed with ED attending, Dr. Samuels. Undiagnosed new problem with uncertain prognosis? @ -No Drug Therapy requiring intensive monitoring for toxicity (Heparin, Nitro, Insulin, Cardizem)? @ -No Were any procedures done? @ -No Diagnosis/symptom? @ -Anxiety Acute, or Chronic, or Acute on Chronic? @ -Chronic Uncomplicated (without systemic symptoms) or Complicated (systemic symptoms)? @ -Uncomplicated Side effects of treatment? @ -No Exacerbation, Progression, or Severe Exacerbation? @ -No Poses a threat to life or bodily function? How? (Chest pain, USA, HI, pneumonia, PE, COPD, DKA, ARF, appy, cholecystitis, CVA, Diverticulitis, Homicidal, Suicidal, threat to staff... and all critical care pts) @ -No Disposition Clinical Impression: Anxiety Disposition: HOME SELF-CARE Condition: Stable Instructions (If sedation given, give patient instructions): Generalized Anxiety Disorder (ED) Additional Instructions: Follow-up with PCP. Return to the ER for any new or worsening symptoms. Is patient prescribed a controlled substance at d/c from ED?: No Referrals: Cassie Whiting MD [Primary Care Provider] - 1-2 days Time of Disposition: 03:43
== END 2023-10-19 04:04 | disposition home or self-care (01) ==
LOC: EC 02:13
DX: F41.9 Anxiety disorder, unspecified (principal); Z88.1 Allergy status to other antibiotic agents; Z88.0 Allergy status to penicillin; Z88.2 Allergy status to sulfonamides
CPT/HCPCS: 99283; 96372; J2360

== ENCOUNTER → 2024-08-26 | Outpatient (CLI) | payer OTHER ==
--- NOTE | 2024-08-26 11:41 | XR ---
EXAMINATION TYPE: XR KUB DATE OF EXAM: 08/26/2024 11:36 AM COMPARISON: None. CLINICAL INDICATION: Male, 34 years old with history of E87.1 HYPO-OSMOLALITY AND HYPONATREMIA, TECHNIQUE: Single view of the abdomen. FINDINGS: Small bowel demonstrates no evidence for dilatation or air fluid levels. Gas and fecal material is seen in non-distended colon. No convincing evidence for pneumoperitoneum. No unusual calcifications. The lung bases are clear. The osseous structures are intact. IMPRESSION: 1. Overall nonobstructive bowel gas pattern. [facility], , 08/26/2024 11:39 AM
== END | disposition home or self-care (01) ==
LOC: RADXRMAIN 11:20
PROVIDERS: ATTEND Family Medicine
DX: E87.1 Hypo-osmolality and hyponatremia (principal)
CPT/HCPCS: 74018

== ENCOUNTER 2024-09-03 07:08 | Emergency (ER) | payer OTHER ==
[2024-09-03 07:23] VITALS: TEMP 98
[2024-09-03 08:13] LABS: Basophils % (A) 1 %; Eosinophils # (A) 0.2 k/uL (0-0.7); Eosinophils % (A) 3 %; HCT 46.5 % (39.0-53.0); HGB 15.7 gm/dL (13.0-17.5); Lymphocytes # (A) 2.2 k/uL (1.0-4.8); Lymphocytes % (A) 31 %; MCH 28.6 pg (25.0-35.0); MCHC 33.7 g/dL (31.0-37.0); MCV 84.6 fL (80.0-100.0); Mean Platelet Volume 7.9; Monocytes # (A) 0.5 k/uL (0-1.0); Monocytes % (A) 7 %; Neutrophils % (A) 56 %; Platelet Count 247 k/uL (150-450); RDW 13.6 % (11.5-15.5); WBC 7.2 k/uL (3.8-10.6)
[2024-09-03 08:18] LABS: ALT 35 U/L (4-49); AST 21 U/L (17-59); African American GFR (CKD) >90 (>60 ml/min/1.73 sqM); Albumin 4.8 g/dL (3.5-5.0); Alkaline Phosphatase 92 U/L (38-126); Anion Gap 10 mmol/L; Blood Urea Nitrogen 12 mg/dL (9-20); Calcium 9.5 mg/dL (8.4-10.2); Carbon Dioxide 26 mmol/L (22-30); Chloride 101 mmol/L (98-107); Glucose 101 mg/dL (74-99); Non-African American GFR(CKD) >90 (>60 ml/min/1.73 sqM); Potassium 4.5 mmol/L (3.5-5.1); Sodium 137 mmol/L (137-145); Total Bilirubin 0.4 mg/dL (0.2-1.3); Total Protein 7.4 g/dL (6.3-8.2)
--- NOTE | 2024-09-03 08:57 | ED ---
General Adult HPI - General Chief complaint: Anxiety Stated complaint: dizziness, shaky, anxiety, right ear pain Time Seen by Provider: 09/03/24 07:30 Source: patient Mode of arrival: ambulatory Limitations: no limitations - History of Present Illness Initial comments: 34-year-old male with past medical history of asthma who presents to the em ergency department with multiple complaints. Patient reports that this morning he was feeling anxious. He does have a history of anxiety and typically takes Xanax. Reports that he recently ran out of his medication. He was concerned that his sodium level was low as he does have a history of low sodium. He denies any dizziness. Does report to right ear pain which has been constant over the past couple weeks. Patient is under the care of his primary care doctor and was told to utilize Debrox eardrops. He denies any fevers. No chest pain or difficulty breathing. No other alleviating, precipitating or modifying factors - Related Data Home Medications Medication Instructions Recorded Confirmed Citalopram Hydrobromide [CeleXA] 40 mg PO DAILY 02/04/17 10/14/23 OXcarbazepine [Trileptal] 300 mg PO BID 02/04/17 10/14/23 busPIRone HCL [Buspar] 30 mg PO BID 07/08/21 10/14/23 ALPRAZolam [Xanax] 1 mg PO BID PRN 10/14/23 10/14/23 Albuterol Inhaler [Ventolin Hfa 1 puff INHALATION RT-Q4H PRN 10/14/23 10/14/23 Inhaler] Cetirizine HCl [Zyrtec] 10 mg PO DAILY PRN 10/14/23 10/14/23 Dextroamphetamine/Amphetamine 20 mg PO W/LUNCH 10/14/23 10/14/23 [Adderall] Dextroamphetamine/Amphetamine 40 mg PO DAILY 10/14/23 10/14/23 [Adderall] Fluticasone Nasal [place] [Flonase 1 spray EA NOSTRIL DAILY PRN 10/14/23 10/14/23 Nasal [place]] Previous Rx's Medication Instructions Recorded Ibuprofen [Motrin] 600 mg PO Q6HR PRN #20 tab 02/06/23 Lidocaine 4% Patch 1 patch TOPICAL DAILY PRN 14 Days 10/14/23 #14 patch Carbamide Peroxide [Debrox Otic] 5 drops RIGHT EAR BID #15 ml 09/03/24 Allergies Allergy/AdvReac Type Severity Reaction Status Date / Time erythromycin base Allergy Unknown Verified 09/03/24 07:23 [From Pediazole] Childhood Penicillins Allergy Rash all Verified 09/03/24 07:23 over body sulfisoxazole Allergy Unknown Verified 09/03/24 07:23 [From Pediazole] Childhood Review of Systems ROS Statement: Those systems with pertinent positive or pertinent negative responses have been documented in the HPI. ROS Other: All systems not noted in ROS Statement are negative. Past Medical History Past Medical History: Asthma, GERD/Reflux Additional Past Medical History / Comment(s): HX OF ASTHMA History of Any Multi-Drug Resistant Organisms: None Reported Past Surgical History: Adenoidectomy, Hernia Repair, Tonsillectomy Additional Past Surgical History / Comment(s): web foot repair Additional Past Anesthesia/Blood Transfusion Reaction / Comment(s): NEVER RECEIVED ANESTHESIA. Past Psychological History: Anxiety, Depression Smoking Status: Current every day smoker Past Alcohol Use History: None Reported Past Drug Use History: Marijuana - Past Family History Mother Family Medical History: No Reported History General Exam Limitations: no limitations General appearance: alert, in no apparent distress Head exam: Present: atraumatic, normocephalic, normal inspection Eye exam: Present: normal appearance, PERRL, EOMI. Absent: scleral icterus, conjunctival injection, periorbital swelling ENT exam: Present: normal exam, mucous membranes moist Neck exam: Present: normal inspection. Absent: tenderness, meningismus, lymphadenopathy Respiratory exam: Present: normal lung sounds bilaterally. Absent: respiratory distress, wheezes, rales, rhonchi, stridor Cardiovascular Exam: Present: regular rate, normal rhythm, normal heart sounds. Absent: systolic murmur, diastolic murmur, rubs, gallop, clicks GI/Abdominal exam: Present: soft, normal bowel sounds. Absent: distended, tenderness, guarding, rebound, rigid Extremities exam: Present: normal inspection, full ROM, normal capillary refill. Absent: tenderness, pedal edema, joint swelling, calf tenderness Back exam: Present: normal inspection Neurological exam: Present: alert, oriented X3, CN II-XII intact Psychiatric exam: Present: normal affect, normal mood Skin exam: Present: warm, dry, intact, normal color. Absent: rash Course Vital Signs 09/03/24 09/03/24 07:20 09:03 Temperature 98 F 98 F Pulse Rate 68 80 Respiratory 20 16 Rate Blood Pressure 130/86 131/88 O2 Sat by Pulse 97 98 Oximetry Medical Decision Making - Medical Decision Making Was pt. sent in by a medical professional or institution (MEY Mcdonald, TRAFFIC SAFETY ADMINISTRATOR, urgent care, hospital, or group home...) When possible be specific @ -No Did you speak to anyone other than the patient for history (EMS, parent, family, police, friend...)? What history was obtained from this source @ -No Did you review nursing and triage notes (agree or disagree)? Why? @ -I reviewed and agree with nursing and triage notes Were old charts reviewed (outside hosp., previous admission, EMS record, old EKG, old radiological studies, urgent care reports/EKG's, group home records)? Report findings @ -No old charts were reviewed Differential Diagnosis (chest pain, altered mental status, abdominal pain women, abdominal pain men, vaginal bleeding, weakness, fever, dyspnea, syncope, headache, dizziness, GI bleed, back pain, seizure, CVA, palpatations, mental health, musculoskeletal)? @ -Differential Mental Health Depression, anxiety, bipolar, psychosis, schizophrenia, borderline personality, situational depression, adjustment disorder, behavioral disorder, brain tumor, malingering, substance abuse, encephalopathy, medication reaction, dementia, hypothyroidism, degenerative neurologic disorder, lupus.... This is not meant to be all-inclusive list EKG interpreted by me (3pts min.). @ -yes and demonstrates sinus rhythm with a rate of 66. TX interval 164. QRS 93. QTc of 377. No acute ST segment elevations. Inverted T wave in lead III X-rays interpreted by me (1pt min.). @ -None done CT interpreted by me (1pt min.). @ -None done U/S interpreted by me (1pt. min.). @ -None done What testing was considered but not performed or refused? (CT, X-rays, U/S, labs)? Why? @ -None What meds were considered but not given or refused? Why? @ -None Did you discuss the management of the patient with other professionals (professionals i.e. MEY Mcdonald, TRAFFIC SAFETY ADMINISTRATOR, lab, RT, psych nurse, licensed clinical social worker, airveyor operator, teacher, recreation officer, case assembler)? Give summary @ -No Was smoking cessation discussed for >3mins.? @ -No Was critical care preformed (if so, how long)? @ -No Were there social determinants of health that impacted care today? How? (Homelessness, low income, unemployed, alcoholism, drug addiction, transportation, low edu. Level, literacy, decrease access to med. care, skilled nursing, rehab)? @ -No Was there de-escalation of care discussed even if they declined (Discuss DNR or withdrawal of care, Hospice)? DNR status @ -No What co-morbidities impacted this encounter? (DM, HTN, Smoking, COPD, CAD, Cancer, CVA, ARF, Chemo, Hep., AIDS, mental health diagnosis, sleep apnea, morbid obesity)? @ -None Was patient admitted / discharged? Hospital course, mention meds given and route, prescriptions, significant lab abnormalities, going to OR and other pertinent info. @ -Upon arrival patient seen and evaluated in bed 23. Thorough history and physical exam was performed. He was given a dose of Valium for his acute an xiety. Laboratory studies are conducted which demonstrate his sodium to be within normal range. Evaluation of the patient's right ear does demonstrate cerumen impaction. Recommended that the patient continue taking the Debrox eardrops. Follow-up with his psychiatrist to obtain a prescription for his Xanax. Return for any new or worsening symptoms. Patient agreeable to plan was discharged in stable condition Undiagnosed new problem with uncertain prognosis? @ -No Drug Therapy requiring intensive monitoring for toxicity (Heparin, Nitro, Insulin, Cardizem)? @ -No Were any procedures done? @ -No Diagnosis/symptom? @ -Acute anxiety, history of anxiety, evaluation of hyponatremia, cerumen impaction in his right ear Acute, or Chronic, or Acute on Chronic? @ -Acute on chronic Uncomplicated (without systemic symptoms) or Complicated (systemic symptoms)? @ -Complicated Side effects of treatment? @ -No Exacerbation, Progression, or Severe Exacerbation? @ -No Poses a threat to life or bodily function? How? (Chest pain, [place], [place], pneumonia, PE, COPD, DKA, ARF, appy, cholecystitis, CVA, Diverticulitis, Homicidal, Suicidal, threat to staff... and all critical care pts) @ -No - Lab Data Result diagrams: 09/03/24 07:58 09/03/24 07:58 Lab Results 09/03/24 09/03/24 Range/Units 07:58 07:58 WBC 7.2 (3.8-10.6) k/uL RBC 5.50 (4.30-5.90) m/uL Hgb 15.7 (13.0-17.5) gm/dL Hct 46.5 (39.0-53.0) % MCV 84.6 (80.0-100.0) fL MCH 28.6 (25.0-35.0) pg MCHC 33.7 (31.0-37.0) g/dL RDW 13.6 (11.5-15.5) % Plt Count 247 (150-450) k/uL MPV 7.9 Neutrophils % 56 % Lymphocytes % 31 % Monocytes % 7 % Eosinophils % 3 % Basophils % 1 % Neutrophils # 4.0 (1.3-7.7) k/uL Lymphocytes # 2.2 (1.0-4.8) k/uL Monocytes # 0.5 (0-1.0) k/uL Eosinophils # 0.2 (0-0.7) k/uL Basophils # 0.0 (0-0.2) k/uL Sodium 137 (137-145) mmol/L Potassium 4.5 (3.5-5.1) mmol/L Chloride 101 (98-107) mmol/L Carbon Dioxide 26 (22-30) mmol/L Anion Gap 10 mmol/L BUN 12 (9-20) mg/dL Creatinine 0.71 (0.66-1.25) mg/dL Est GFR (CKD-EPI)AfAm >90 (>60 ml/min/1.73 sqM) Est GFR (CKD-EPI)NonAf >90 (>60 ml/min/1.73 sqM) Glucose 101 H (74-99) mg/dL Calcium 9.5 (8.4-10.2) mg/dL Total Bilirubin 0.4 (0.2-1.3) mg/dL AST 21 (17-59) U/L ALT 35 (4-49) U/L Alkaline Phosphatase 92 (38-126) U/L Total Protein 7.4 (6.3-8.2) g/dL Albumin 4.8 (3.5-5.0) g/dL Disposition Clinical Impression: Ear pain, right, Anxiety Disposition: HOME SELF-CARE Condition: Stable Instructions (If sedation given, give patient instructions): Generalized A nxiety Disorder (ED) Additional Instructions: Follow-up with your doctor and return for any new or worsening symptoms Prescriptions: Carbamide Peroxide [Debrox Otic] 5 drops RIGHT EAR BID #15 ml Is patient prescribed a controlled substance at d/c from ED?: No Referrals: Cassie Whiting MD [Primary Care Provider] - 1-2 days Time of Disposition: 08:57
[2024-09-03] MEDS: diazePAM 5 MG TAB PO STA (08:59)
[2024-09-03 09:05] VITALS: BP 131/88; PULSE 80; RESP 16
== END 2024-09-03 09:05 | disposition home or self-care (01) ==
LOC: EC 07:08
DX: F41.9 Anxiety disorder, unspecified (principal); H92.01 Otalgia, right ear; J45.909 Unspecified asthma, uncomplicated; F17.200 Nicotine dependence, unspecified, uncomplicated; Z88.0 Allergy status to penicillin; Z88.1 Allergy status to other antibiotic agents; Z88.2 Allergy status to sulfonamides
CPT/HCPCS: 36415; 80053; 85025; 93005; 99284